=== PATIENT | female | born 1930 | race Caucasian/White ===

== ENCOUNTER 2016-05-11 03:40 | Inpatient (IN) | payer MEDICARE, MEDICAID ==
[~2016-05-11] VITALS: Ht 160 cm; Wt 60.9 kg
[~2016-05-11 03:40] MED LIST: /RISE35TA OR; /WARF2TA OR; ACET50TA PO; ACET65TA OR; AMBI5TAB OR; ASPI81TA4 PO; AUGM875T27 PO; CILOSTAZOL PO; COLA50CA3 PO; DUONSOL INH; FLAG500T PO; HYDR100T13 PO; INDA1.252 PO; LIDODERM PATCH; LIPI10TA OR; LISI20TA5 OR; LISI40TA OR; LOPR50TA OR; MICR10CA PO; NEUROTIN PO; NITROFURANTOIN PO; PLAV75TA2 OR; SENN8.6T5 OR; SENO8.6T5 OR; SLOMAG PO; TOPR50TA OR; TRAM100T OR
[2016-05-11 04:25] LABS: BASO # 0.1 K/mm3 (0.0-0.2); BASO % 1.2 % (0.0-1.0); EOS # 0.2 K/mm3 (0.0-0.50); EOS % 3.5 % (0.0-3.0); LARGE UNSTAINED CELL # 0.2 K/mm3 (0.0-0.4); LARGE UNSTAINED CELL % 3.8 % (0.0-4.0); LYMPH # 1.4 K/mm3 (1.5-4.5); LYMPH % 17.9 % (24.0-44.0); MEAN CORPUSCULAR HEMOGLOBIN 33.3 pg (27.0-33.0); MEAN CORPUSCULAR HGB CONC 31.8 g/dl (32.0-36.5); MEAN CORPUSCULAR VOLUME 104.8 fl (80.0-96.0); MONO # 0.7 K/mm3 (0.0-0.8); NEUTROPHILS % 62.7 % (36.0-66.0); PLATELET COUNT, AUTOMATED 174 k/mm3 (150-450); RED CELL DISTRIBUTION WIDTH 12.8 % (11.5-14.5); WHITE BLOOD COUNT 6.3 K/mm3 (4.0-10.0)
[2016-05-11] MEDS ORDERED: methylPREDNISolone INJ 125 MG/2 ML VIAL (J2930) As Ordered ONE (04:29)
[2016-05-11 04:45] LABS: ANION GAP 6 MEQ/L (8-16); BLOOD UREA NITROGEN 23 MG/DL (7-18); CALCIUM LEVEL 9.2 MG/DL (8.8-10.2); CARBON DIOXIDE LEVEL 29 MEQ/L (21-32); CHLORIDE LEVEL 104 MEQ/L (98-107); CREATININE FOR GFR 0.89 MG/DL (0.55-1.02); GLOMERULAR FILTRATION RATE > 60.0 (>32); GLUCOSE, FASTING 94 MG/DL (83-110); POTASSIUM SERUM 4.1 MEQ/L (3.5-5.1); SODIUM LEVEL 139 MEQ/L (136-145)
[2016-05-11 04:46] LABS: INR 2.95
[2016-05-11] MEDS ORDERED: IPRATROPIUM 0.5MG/ALBUTEROL 2.5MG INH SOL UD 3ML (DUONEB)(J7620) As Ordered ONE ×2 (05:17→06:54)
[2016-05-11] MEDS ORDERED: ISOVUE-370 76% 100ML VIAL (Q9967) As Ordered ONE (05:23)
[2016-05-11] MEDS ORDERED: HEPARIN SOD (PORCINE) 5000 UNITS/ML VIAL SC SCH (06:00)
--- NOTE | 2016-05-11 06:40 | REPUSA ---
CLINICAL HISTORY: Dyspnea, exclude PE. TECHNIQUE: Multiple incremental axial, coronal and oblique images are obtained from the thoracic inle t to the upper abdomen. Intravenous contrast material was administered as per pulmonary embolism prot ocol. COMMENTS: Moderate cardiomegaly. Absent contrast opacification of the aorta. Enlargement pulmonary arteries sug gestive of pulmonary hypertension. Contrast refluxed into the suprahepatic IVC suggestive of dysfunct ion of the right cardiac cavities. There is excellent opacification of pulmonary arterial system without evidence for pulmonary embolism . 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 Subsegmental atelectasis of the lingula. Basilar atelectatic pulmonary changes of the lower lobes. There is no evidence of pleural or parenchymal mass. There are no pleural effusions. There is no evid ence of hilar or mediastinal lymphadenopathy. Images of the upper abdomen demonstrate no evidence of adrenal mass. The bony structures are free of lytic or blastic lesions. Multilevel degenerative changes are seen in volving the visualized thoracolumbar spine. Scattered calcifications are seen involving the aorta and major branches compatible with atherosclero sis. IMPRESSION: No evidence for pulmonary embolism. 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 Cardiomegaly. Pulmonary hypertension. Basilar atelectatic pulmonary changes. Subsegmental atelectasis in the lingula. Please evaluate to exclude a superimposed infection. Thank you for your kind referral of this patient.
[2016-05-11] MEDS ORDERED: cefTRIAXone SOD 1 GM VIAL (J0696) As Ordered ONE (06:44)
[2016-05-11 07:08] LABS: ABG BASE EXCESS -1.3 (-2.0-2.0); ABG DEVICE NASAL CANN; ABG HCO3 23.6 MEQ/L (22.0-26.0); ABG PARTIAL PRESSURE CO2 40.6 mmHg (35.0-45.0); ABG STANDARD HCO3 23.4 MEQ/L (22.0-26.0); ABG TOTAL CO2 24.9 MEQ/L (23.0-31.0); ABG pH (ARTERIAL) 7.383 UNITS (7.350-7.450)
[2016-05-11] MEDS ORDERED: cefTRIAXone SOD 1 GM in D5W MINI-BAG PLUS 50 ML IV SCH (07:15)
[2016-05-11] MEDS: BUDESONIDE 0.25 MG/2 ML INHALATION SUSPENSION INH SCH ×2 (08:00→19:45)
[2016-05-11] MEDS: IPRATROPIUM 0.5MG/ALBUTEROL 2.5MG INH SOL UD 3ML (DUONEB)(J7620) NEB SCH ×4 (08:00→23:16)
--- NOTE | 2016-05-11 08:39 | EDDOCDS ---
Physician Documentation [facility] Name: Kelsey Sosa Age: 85 yrs Sex: Female : 1930 Arrival Date: 05/11/2016 Time: 03:40 Bed 18 Private MD: Zara Franks Disposition: 05/11/16 07:29 Hospitalization ordered by Kamilla Brooks for Inpatient Admission. Preliminary diagnosis are Chronic obstructive pulmonary disease with (acute) exacerbation, Hypoxemia. - Bed requested for 5 Rivera. - Status is Inpatient Admission. hs1 - Condition is Stable. - Problem is an acute exacerbation. - Symptoms have improved. Historical: - Allergies: SULFA (SULFONAMIDES) (Vomit); - Home Meds: 1. Duo Neb every 4 hours 2. budesonide inhalation inhalation 2 times per day 3. Lipitor 10 mg Oral tab 1 tab once daily (Last dose: 05/10/2016) 4. sennacot 1 tab daily 5. lisinopril 40 mg Oral tab 1 tab once daily (Last dose: 05/10/2016) 6. metoprolol succinate 50 mg Tb24 1 tab once daily (Last dose: 05/10/2016) 7. Neurontin 100 mg Oral cap twice a day (Last dose: 05/10/2016) 8. slomag 128 mg daily (Last dose: 05/10/2016) 9. warfarin 2 mg Oral tab 1 tab daily except Mondays and Fridays 10. potassium chloride 10 mEq Oral cpER 1 cap once daily 11. indapamide 1.25 mg Oral tab 1 tab once daily (Last dose: 05/10/2016) 12. fluoxetine 10 mg Oral cap 1 caps once daily - PMHx: COPD; Emphysema; CAD; Hypertension; Atrial Fib; CVA; Hypercholesterolemia; - PSHx: CATARACT SURGERY; Stents, Coronary; hysterectomy, Partial; blethroplasty; - Social history: Smoking status: Patient states former smoker of tobacco. No barriers to communication noted, The patient speaks fluent Romansh. - Family history: Not pertinent. - : The pt / caregiver states he / she is on anticoagulants: coumadin. Home medication list is obtained from family members. - Exposure Risk Screening:: None identified. Vital Signs: 05/11 03:57 BP 133 / 79; Pulse 78; Resp 20; Temp 97.5(T); Pulse Ox 90% on R/A; Weight 68.95 kg / kmg1 152.01 lbs (R); Height 5 ft. 3 in. (160.02 cm) (R); Pain 0/10; 04:06 BP 163 / 86 (auto/); kas2 04:07 Pulse 78 MON; Pulse Ox 91% ; kas2 04:21 BP 152 / 92 (auto/); kas2 04:21 Pulse 70 MON; Pulse Ox 97% ; kas2 04:36 BP 176 / 96 (auto/); kas2 04:36 Pulse 72 MON; Pulse Ox 97% ; kas2 04:51 BP 181 / 91 (auto/); kas2 04:51 Pulse 74 MON; Pulse Ox 97% ; kas2 05:06 BP 173 / 92 (auto/); kas2 05:06 Pulse 72 MON; Pulse Ox 98% ; kas2 05:21 Pulse 72 MON; Pulse Ox 99% ; kas2 05:21 BP 179 / 98 (auto/); kas2 05:27 BP 163 / 92 (auto/); kas2 05:27 Pulse 72 MON; Pulse Ox 100% ; kas2 05:36 BP 178 / 95 (auto/); kas2 05:36 Pulse 76 MON; Pulse Ox 99% ; kas2 05:50 BP 167 / 84 (auto/); kas2 05:50 Pulse 84 MON; Pulse Ox 93% ; kas2 05:51 BP 168 / 83 (auto/); kas2 05:51 Pulse 86 MON; Pulse Ox 93% ; kas2 06:06 BP 156 / 80 (auto/); kas2 06:06 Pulse 86 MON; Pulse Ox 96% ; kas2 06:16 Pulse 92 MON; Pulse Ox 96% ; kas2 06:23 BP 171 / 94 (auto/); kas2 06:26 Resp 24; Temp 97.5(O); Pain 0/10; kas2 06:36 BP 186 / 89 (auto/); kas2 06:36 Pulse 88 MON; Pulse Ox 98% ; kas2 06:52 Resp 20; Temp 97.6(O); Pain 0/10; kas2 07:36 BP 160 / 76 (auto/); hs1 07:37 Pulse 100 MON; Resp 20; Pulse Ox 98% on 2 lpm NC; hs1 03:57 Body Mass Index 26.93 (68.95 kg, 160.02 cm) [facility] [place]: 04:20 Solu-MEDROL 125 mg IVP once ordered. mm11 04:20 -Blood Culture (Adults Only), peripheral from different site, or from device/port/PICC mm11 etc. if present ordered. 04:20 Call Respiratory ordered. mm11 04:20 Cover Creaser/Pulse Ox/q 15 min VS ordered. mm11 04:20 IV Saline Lock ordered. mm11 04:20 Oxygen at 4L/Min NC or Home dosage ordered. mm11 04:20 Rhythm Strip to chart ordered. mm11 04:20 Albuterol-Ipratropium 1 neb Nebulizer every 20 minutes x3 ordered. mm11 04:21 -Blood Culture Ordered. EDMS 04:21 B-Type Natiuretic Peptide Ordered. EDMS 04:21 Basic Metabolic Profile Ordered. EDMS 04:21 CBC with Diff Ordered. EDMS 04:21 Troponin Ordered. EDMS 04:21 Cardiac Injury Profile Ordered. EDMS 04:21 Chest, 1 View Ordered. EDMS 04:22 ECG WITH READING ER PHYS+CARDIAG ordered. EDMS 04:25 Call Respiratory complete. tmm1 04:28 -Blood Culture (Adults Only), peripheral from different site, or from device/port/PICC tmm1 etc. if present complete. 04:28 BLOOD CULTURES Ordered. EDMS 04:38 CBC with Diff Reviewed. mm11 04:39 PT/INR Ordered. EDMS 05:05 B-Type Natiuretic Peptide Reviewed. mm11 05:05 Basic Metabolic Profile Reviewed. mm11 05:05 PT/INR Reviewed. mm11 05:05 Troponin Reviewed. mm11 05:05 Cardiac Injury Profile Reviewed. mm11 05:19 CT Chest Angio R/O PE Ordered. EDMS 06:02 Financial registration complete. hs2 06:02 [facility] Payment Agreement was scanned into [employer] and attached to record. hs2 06:38 Call Respiratory ordered. mm11 06:38 Albuterol-Ipratropium 1 neb Nebulizer every 20 minutes x3 ordered. mm11 06:39 cefTRIAXone 1 grams IVPB once over 30 mins; dilute in 50mL of NS or D5W ordered. mm11 06:39 -Arterial Blood Gas Ordered. EDMS 06:40 BED REQUEST+ADM ordered. EDMS 06:40 Call Respiratory complete. deg 07:09 URINALYSIS Ordered. EDMS 07:09 LACTIC ACID LEVEL, LACTATE Ordered. EDMS 07:09 CARDIAC MARKER PANEL Ordered. EDMS 07:09 CARDIAC MARKER PANEL Ordered. EDMS 07:09 SPUTUM CULTURE AND GRAM STAIN Ordered. EDMS 07:09 BLOOD CULTURES Ordered. EDMS 07:11 PHYSICAL THERAPY EVAL & TREAT ordered. EDMS 07:11 Admission / Observation Status ordered. EDMS 07:12 OTHER CUSTOM DIETS ordered. EDMS 07:36 ECHOCARD,DOPPLER/COLOR FLOW ordered. EDMS Administered Medications: 04:52 Drug: Solu-MEDROL 125 mg [Solu-Medrol 500 mg intravenous solution (125 mg)] Route: IVP; kas2 Site: left antecubital; 05:15 Drug: Albuterol-Ipratropium 1 neb [ipratropium-albuterol 0.5 mg-3 mg(2.5 mg base)/3 mL jc3 nebulization soln (1 neb)] Route: Nebulizer; 05:27 Drug: Albuterol-Ipratropium 1 neb [ipratropium-albuterol 0.5 mg-3 mg(2.5 mg base)/3 mL jc3 nebulization soln (1 neb)] Route: Nebulizer; 05:37 Drug: Albuterol-Ipratropium 1 neb [ipratropium-albuterol 0.5 mg-3 mg(2.5 mg base)/3 mL jc3 nebulization soln (1 neb)] Route: Nebulizer; 06:49 Drug: cefTRIAXone 1 grams [ceftriaxone 1 gram solution for injection] Route: IVPB; kas2 Infused Over: 30 mins; Site: left antecubital; 07:48 Follow up: IV Status: Completed infusion; IV Intake: 50ml hs1 07:02 Drug: Albuterol-Ipratropium 1 neb [ipratropium-albuterol 0.5 mg-3 mg(2.5 mg base)/3 mL jc3 nebulization soln (1 neb)] Route: Nebulizer; 07:09 Drug: Albuterol-Ipratropium 1 neb [ipratropium-albuterol 0.5 mg-3 mg(2.5 mg base)/3 mL jc3 nebulization soln (1 neb)] Route: Nebulizer; 07:19 Drug: Albuterol-Ipratropium 1 neb [ipratropium-albuterol 0.5 mg-3 mg(2.5 mg base)/3 mL jc3 nebulization soln (1 neb)] Route: Nebulizer; Signatures: Dispatcher [employer] EDMS Renate Holly, Window Glass Cutter Off Unit deg Zulma Dominguez RN RN kmg1 Jaiden Castellano, DO mm11 Alexadnra Cook RN RN hs1 Adelaida Olivier, STATE MANAGER STATE MANAGER tmm1 Heriberto Kitchen RN RN [facility] Clayton Choiary, Reg Reg hs2 Lena Mcrae RN RN [facility]2 John Fagan jc3 The chart was reviewed and I authenticate all verbal orders and agree with the evaluation and treatment provided.Attachments: 06:02 [facility] Payment Agreement hs2 MTDD
--- NOTE | 2016-05-11 08:39 | EDDOCDS ---
Nurse's Notes [facility] Name: Kelsey Sosa Age: 85 yrs Sex: Female : 1930 Arrival Date: 05/11/2016 Time: 03:40 Bed 18 Private MD: Zara Franks Diagnosis: Chronic obstructive pulmonary disease with (acute) exacerbation;Hypoxemia Presentation: 05/11 03:45 Presenting complaint: Was seen by PCP for difficulty breathing on Friday. Tonight is kmg1 worse. Edema in both legs. Status: Patient is not a community service organization director or dependent. Suicide/Homicide risk assessment- the patient denies having any suicidal and/or homicidal ideations. Transition of care: patient was not received from another setting of care. 03:45 Acuity: BETSEY Level 3 kmg1 03:45 Method Of Arrival: Walkin/Carried/Asstd km 04:00 Adult Sepsis Screening: The patient does not have new or worsening altered mentation. kmg1 Patient's respiratory rate is less than 22. Systolic blood pressure is greater than 100. Patient has a qSOFA score of 0- Negative Sepsis Screen. Triage Assessment: 03:57 General: Appears in no apparent distress, comfortable, Behavior is appropriate for age. kmg1 Pain: Denies pain. Respiratory: Onset: The symptoms/episode began/occurred gradually, Airway is patent Respiratory effort is even, unlabored, Respiratory pattern is regular, symmetrical, Reports shortness of breath cough that is. Historical: - Allergies: SULFA (SULFONAMIDES) (Vomit); - Home Meds: 1. Duo Neb every 4 hours 2. budesonide inhalation inhalation 2 times per day 3. Lipitor 10 mg Oral tab 1 tab once daily (Last dose: 05/10/2016) 4. sennacot 1 tab daily 5. lisinopril 40 mg Oral tab 1 tab once daily (Last dose: 05/10/2016) 6. metoprolol succinate 50 mg Tb24 1 tab once daily (Last dose: 05/10/2016) 7. Neurontin 100 mg Oral cap twice a day (Last dose: 05/10/2016) 8. slomag 128 mg daily (Last dose: 05/10/2016) 9. warfarin 2 mg Oral tab 1 tab daily except Mondays and Fridays 10. potassium chloride 10 mEq Oral cpER 1 cap once daily 11. indapamide 1.25 mg Oral tab 1 tab once daily (Last dose: 05/10/2016) 12. fluoxetine 10 mg Oral cap 1 caps once daily - PMHx: COPD; Emphysema; CAD; Hypertension; Atrial Fib; CVA; Hypercholesterolemia; - PSHx: CATARACT SURGERY; Stents, Coronary; hysterectomy, Partial; blethroplasty; - Social history: Smoking status: Patient states former smoker of tobacco. No barriers to communication noted, The patient speaks fluent Swedish. - Family history: Not pertinent. - : The pt / caregiver states he / she is on anticoagulants: coumadin. Home medication list is obtained from family members. - Exposure Risk Screening:: None identified. Screenin:17 Screening information is obtained from the patient. Fall risk: At risk due to age. kas2 Assistance ADL's: requires no assistance with activities of daily living. Abuse/DV Screen: The patient / caregiver reports he/she is: not in a situation that causes fear, pain or injury. Nutritional screening: No deficits noted. Advance Directives: Currently, there is no health care proxy. There is no active DNR order. There is a living will, but a copy is not available at this time. There is no Power of Lodge Sales Associate. home support is adequate. Assessment: 04:16 General: Appears in no apparent distress, comfortable, well nourished, well groomed, kas2 Behavior is appropriate for age, cooperative. Pain: Denies pain. Neurological: Level of Consciousness is awake, alert, Oriented to person, place, time. Cardiovascular: Capillary refill < 3 seconds Heart tones S1 S2 present Rhythm is sinus rhythm No ectopy. Cardiovascular: Edema is 2+ to left midcalf, left ankle, left foot, left toes, right midcalf, right ankle, right foot and right toes. Respiratory: Airway is patent Respiratory effort is even, unlabored, Respiratory pattern is regular, symmetrical, Breath sounds are diminished bilaterally. Breath sounds with wheezes inspiratory expiratory bilaterally. GI: Abdomen is obese, Bowel sounds present X 4 quads. Abd is soft and non tender X 4 quads. Derm: Skin is intact, Skin is dry, Skin is pink, warm & dry. normal, Skin temperature is warm. 05:15 General: Patient sitting up in bed with family at bedside. Denies pain or discomfort at kas2 this time. Appears comfortable. Call borges within reach. Will continue to monitor.. 05:30 General: Patient gone to CT scan via stretcher with tech.. kas2 05:45 General: Patient back from CT scan via stretcher with RN. Resettle in bed. Appears kas2 comfortable. Denies pain or discomfort at this time. No apparent distress. Call borges within reach. Will continue to monitor.. 06:50 General: Appears in no apparent distress, comfortable, well nourished, well groomed, kas2 Behavior is appropriate for age, cooperative. Pain: Denies pain. Neurological: Level of Consciousness is awake, alert, Oriented to person, place, time. Cardiovascular: Rhythm is sinus rhythm No ectopy. Respiratory: Airway is patent Respiratory effort is even, unlabored, Respiratory pattern is regular, symmetrical, Breath sounds are diminished bilaterally. Breath sounds with wheezes inspiratory expiratory bilaterally. Derm: Skin is intact, Skin is dry, Skin is pink, warm & dry. normal, Skin temperature is warm. 07:44 General: Appears in no apparent distress, Behavior is appropriate for age, cooperative. hs1 Neurological: Level of Consciousness is awake, alert, obeys commands, Oriented to person, place, time. Cardiovascular: Edema is 2+ to left ankle, left foot, left toes, right ankle, right foot and right toes. Respiratory: Airway is patent Respiratory effort is unlabored, Respiratory pattern is regular, symmetrical, Breath sounds are diminished bilaterally. Breath sounds with wheezes bilaterally. Derm: Skin is normal. 08:14 Reassessment: Patient appears in no apparent distress at this time. Patient states hs1 symptoms have improved. after last breathing treatment feeling better. Pt tolerated breakfast well. Family continues at bedside. No other needs made known at this time. . Vital Signs: 03:57 BP 133 / 79; Pulse 78; Resp 20; Temp 97.5(T); Pulse Ox 90% on R/A; Weight 68.95 kg (R); kmg1 Height 5 ft. 3 in. (160.02 cm) (R); Pain 0/10; 04:06 BP 163 / 86 (auto/); kas2 04:07 Pulse 78 MON; Pulse Ox 91% ; kas2 04:21 BP 152 / 92 (auto/); kas2 04:21 Pulse 70 MON; Pulse Ox 97% ; kas2 04:36 BP 176 / 96 (auto/); kas2 04:36 Pulse 72 MON; Pulse Ox 97% ; kas2 04:51 BP 181 / 91 (auto/); kas2 04:51 Pulse 74 MON; Pulse Ox 97% ; kas2 05:06 BP 173 / 92 (auto/); kas2 05:06 Pulse 72 MON; Pulse Ox 98% ; kas2 05:21 Pulse 72 MON; Pulse Ox 99% ; kas2 05:21 BP 179 / 98 (auto/); kas2 05:27 BP 163 / 92 (auto/); kas2 05:27 Pulse 72 MON; Pulse Ox 100% ; kas2 05:36 BP 178 / 95 (auto/); kas2 05:36 Pulse 76 MON; Pulse Ox 99% ; kas2 05:50 BP 167 / 84 (auto/); kas2 05:50 Pulse 84 MON; Pulse Ox 93% ; kas2 05:51 BP 168 / 83 (auto/); kas2 05:51 Pulse 86 MON; Pulse Ox 93% ; kas2 06:06 BP 156 / 80 (auto/); kas2 06:06 Pulse 86 MON; Pulse Ox 96% ; kas2 06:16 Pulse 92 MON; Pulse Ox 96% ; kas2 06:23 BP 171 / 94 (auto/); kas2 06:26 Resp 24; Temp 97.5(O); Pain 0/10; kas2 06:36 BP 186 / 89 (auto/); kas2 06:36 Pulse 88 MON; Pulse Ox 98% ; kas2 06:52 Resp 20; Temp 97.6(O); Pain 0/10; kas2 07:36 BP 160 / 76 (auto/); hs1 07:37 Pulse 100 MON; Resp 20; Pulse Ox 98% on 2 lpm NC; hs1 03:57 Body Mass Index 26.93 (68.95 kg, 160.02 cm) [facility] Vitals: 03:57 Log In Time: May 11, 2016 at 03:43. [facility] ED Course: 03:42 Patient visited by Shaan Davison. lja 03:42 Zara Franks is Private Physician. lja 03:42 Patient moved to Waiting [facility] 03:47 Triage Initiated km 04:00 Lena Mcrae,RN is Primary Nurse. [facility] 04:00 Patient moved to 18 [facility] 04:10 Jaiden Castellano DO is Attending Physician. mm11 04:10 Patient visited by Jaiden Castellano DO. mm11 04:18 Patient visited by Lena Mcrae RN. kas2 04:18 Inserted saline lock: 20 gauge in left antecubital area and blood collected. The kas2 patient tolerated the procedure well. 04:18 No procedures done that require assistance. kas2 04:19 Patient visited by Jaiden Castellano DO. mm11 04:25 Patient visited by Lena Mcrae RN. kas2 04:25 The patient / caregiver is instructed regarding the plan of care and ED course. Cardiac kas2 monitor on. Pulse ox on. NIBP on. 04:25 O2 via nasal cannula \T\ 4L/min. kas2 04:59 BLOOD CULTURES Sent. jlm 05:04 Patient visited by Jaiden Castellano DO. mm11 05:07 Patient visited by Lena Mcrae RN. kas2 05:16 Patient visited by Lena Mcrae RN. kas2 05:51 Patient visited by Lena Mcrae RN. kas2 06:02 [facility] Payment Agreement was scanned into [employer] and attached to record. hs2 06:05 Patient visited by Lena Mcrae RN. kas2 06:06 Patient name changed from Kelsey\S\A\S\Sosa\S\ to Kelsey\S\Martha\S\Sosa. EDMS 06:26 Patient visited by Lena Mcrae RN. kas2 06:44 CT Chest Angio R/O PE Returned. EDMS 06:52 Patient visited by Lnea Mcrae RN. kas2 07:02 Primary Nurse role handed off by Lena Mcrae RN kas2 07:02 -Arterial Blood Gas Sent. jc3 07:29 Patient visited by Jaiden Castellano DO. mm11 07:29 Kamilla Brooks is Hospitalizing Provider. mm11 Administered Medications: 04:52 Drug: Solu-MEDROL 125 mg [Solu-Medrol 500 mg intravenous solution (125 mg)] Route: IVP; kas2 Site: left antecubital; 05:15 Drug: Albuterol-Ipratropium 1 neb [ipratropium-albuterol 0.5 mg-3 mg(2.5 mg base)/3 mL 3 nebulization soln (1 neb)] Route: Nebulizer; 05:27 Drug: Albuterol-Ipratropium 1 neb [ipratropium-albuterol 0.5 mg-3 mg(2.5 mg base)/3 mL jc3 nebulization soln (1 neb)] Route: Nebulizer; 05:37 Drug: Albuterol-Ipratropium 1 neb [ipratropium-albuterol 0.5 mg-3 mg(2.5 mg base)/3 mL jc3 nebulization soln (1 neb)] Route: Nebulizer; 06:49 Drug: cefTRIAXone 1 grams [ceftriaxone 1 gram solution for injection] Route: IVPB; kas2 Infused Over: 30 mins; Site: left antecubital; 07:48 Follow up: IV Status: Completed infusion; IV Intake: 50ml hs1 07:02 Drug: Albuterol-Ipratropium 1 neb [ipratropium-albuterol 0.5 mg-3 mg(2.5 mg base)/3 mL jc3 nebulization soln (1 neb)] Route: Nebulizer; 07:09 Drug: Albuterol-Ipratropium 1 neb [ipratropium-albuterol 0.5 mg-3 mg(2.5 mg base)/3 mL jc3 nebulization soln (1 neb)] Route: Nebulizer; 07:19 Drug: Albuterol-Ipratropium 1 neb [ipratropium-albuterol 0.5 mg-3 mg(2.5 mg base)/3 mL jc3 nebulization soln (1 neb)] Route: Nebulizer; Intake: 07:48 IV: 50.00ml; Total: 50.00ml. hs1 RT: 05:20 Initial Med Neb Given as ordered. O2 via nasal cannula \T\ 2L/min. Respiratory: Breath jc3 sounds are diminished bilaterally. Breath sounds with wheezes bilaterally. at expiration. 05:27 Subsequent Med Neb Given as ordered. Respiratory: Breath sounds are diminished jc3 bilaterally. Breath sounds with wheezes bilaterally. at expiration. 05:37 Subsequent Med Neb Given as ordered. Respiratory: Breath sounds are coarse Breath jc3 sounds are diminished bilaterally. Breath sounds with wheezes bilaterally. at expiration. 07:04 ABG's drawn from right radial artery pressure held for 5 minutes no bleeding noted jc3 pressure bandage applied specimen sent pt. tolerated well. Subsequent Med Neb Given as ordered. Respiratory: Breath sounds are coarse Breath sounds with crackles in left upper lobe and left lower lobe Breath sounds are diminished bilaterally. Breath sounds with wheezes. 07:19 Subsequent Med Neb Given as ordered. Respiratory: Breath sounds are coarse Breath jc3 sounds with crackles Breath sounds are diminished bilaterally. Breath sounds with wheezes. Order Results: Lab Order: B-Type Natiuretic Peptide; SPEC'M 05/11/16 04:14 Test: BRAIN NATRIURETIC PEPTIDE; Value: 319; Range: <100; Abnormal: Above high normal; Units: PG/ML; Status: F Lab Order: Basic Metabolic Profile; SPEC'M 05/11/16 04:14 Test: GLUCOSE, FASTING; Value: 94; Range: 83-110; Units: MG/DL; Status: F Test: BLOOD UREA NITROGEN; Value: 23; Range: 7-18; Abnormal: Above high normal; Units: MG/DL; Status: F Test: CREATININE FOR GFR; Value: 0.89; Range: 0.55-1.02; Units: MG/DL; Status: F Test: GLOMERULAR FILTRATION RATE; Value: > 60.0; Range: >32; Status: F Test: SODIUM LEVEL; Value: 139; Range: 136-145; Units: MEQ/L; Status: F Test: POTASSIUM SERUM; Value: 4.1; Range: 3.5-5.1; Units: MEQ/L; Status: F Test: CHLORIDE LEVEL; Value: 104; Range: 98-107; Units: MEQ/L; Status: F Test: CARBON DIOXIDE LEVEL; Value: 29; Range: 21-32; Units: MEQ/L; Status: F Test: ANION GAP; Value: 6; Range: 8-16; Abnormal: Below low normal; Units: MEQ/L; Status: F Test: CALCIUM LEVEL; Value: 9.2; Range: 8.8-10.2; Units: MG/DL; Status: F Test Note: ; Units are mL/min/1.73 m2 Chronic Kidney Disease Staging per NKF: Stage I & II GFR >=60 Normal to Mildly Decreased Stage III GFR 30-59 Moderately Decreased Stage IV GFR 15-29 Severely Decreased Stage V GFR <15 Very Little GFR Left ESRD GFR <15 on SALES [employer]PRESENTATIVE [employer] Lab Order: CBC with Diff; SPEC'M 05/11/16 04:14 Test: WHITE BLOOD COUNT; Value: 6.3; Range: 4.0-10.0; Units: K/mm3; Status: F Test: RED BLOOD COUNT; Value: 4.02; Range: 4.00-5.40; Units: M/mm3; Status: F Test: HEMOGLOBIN; Value: 13.4; Range: 12.0-16.0; Units: g/dl; Status: F Test: HEMATOCRIT; Value: 42.2; Range: 36.0-47.0; Units: %; Status: F Test: MEAN CORPUSCULAR VOLUME; Value: 104.8; Range: 80.0-96.0; Abnormal: Above high normal; Units: fl; Status: F Test: MEAN CORPUSCULAR HEMOGLOBIN; Value: 33.3; Range: 27.0-33.0; Abnormal: Above high normal; Units: pg; Status: F Test: MEAN CORPUSCULAR HGB CONC; Value: 31.8; Range: 32.0-36.5; Abnormal: Below low normal; Units: g/dl; Status: F Test: RED CELL DISTRIBUTION WIDTH; Value: 12.8; Range: 11.5-14.5; Units: %; Status: F Test: PLATELET COUNT, AUTOMATED; Value: 174; Range: 150-450; Units: k/mm3; Status: F Test: NEUTROPHILS %; Value: 62.7; Range: 36.0-66.0; Units: %; Status: F Test: LYMPH %; Value: 17.9; Range: 24.0-44.0; Abnormal: Below low normal; Units: %; Status: F Test: MONO %; Value: 11.0; Range: 0.0-5.0; Abnormal: Above high normal; Units: %; Status: F Test: EOS %; Value: 3.5; Range: 0.0-3.0; Abnormal: Above high normal; Units: %; Status: F Test: BASO %; Value: 1.2; Range: 0.0-1.0; Abnormal: Above high normal; Units: %; Status: F Test: LARGE UNSTAINED CELL %; Value: 3.8; Range: 0.0-4.0; Units: %; Status: F Test: NEUTROPHILS #; Value: 4.0; Range: 1.8-7.7; Units: K/mm3; Status: F Test: LYMPH #; Value: 1.4; Range: 1.5-4.5; Abnormal: Below low normal; Units: K/mm3; Status: F Test: MONO #; Value: 0.7; Range: 0.0-0.8; Units: K/mm3; Status: F Test: EOS #; Value: 0.2; Range: 0.0-0.50; Units: K/mm3; Status: F Test: BASO #; Value: 0.1; Range: 0.0-0.2; Units: K/mm3; Status: F Test: LARGE UNSTAINED CELL #; Value: 0.2; Range: 0.0-0.4; Units: K/mm3; Status: F Lab Order: Troponin; [facility] 05/11/16 04:14 Test: TROPONIN I; Value: < 0.02; Range: < 0.10; Units: NG/ML; Status: F Test Note: ; Troponin I Reference Interval for Penxy LOCI: 99th Percentile= 0.00-0.045 ng/ml Risk Stratification: <= 0.10 ng/ml Decreased Risk for Adverse Clinical Events. 0.10-1.50 ng/ml Increased Risk for Adverse Clinical Events. Evaluation of additional criterion and/or repeat testing in 2-6 hours is suggested to rule out myocardial damage. >= 1.50 ng/ml Indicative of Myocardial Injury. Lab Order: Cardiac Injury Profile; [facility] 05/11/16 04:14 Test: CPK CREATINE PHOSPHOKINASE; Value: 74; Range: 26-192; Units: U/L; Status: F Test: CK-MB VALUE MASS; Value: 2.9; Range: 0.0-3.6; Units: NG/ML; Status: F Test: MB/CK RELATIVE INDEX; Value: 3.91; Range: < OR =4; Status: F Test Note: ; DIAGNOSIS CRITERIA MMB ng/ml Relative Index (RI) NON-AMI < or = 5 N/A BHATT ZONE > 5 < or = 4 AMI > 5 > 4 Lab Order: PT/INR; [facility] 05/11/16 04:14 Test: PROTHROMBIN TIME; Value: 30.8; Range: 12.3-14.5; Abnormal: Above high normal; Units: SECONDS; Status: F Test: INR; Value: 2.95; Status: F Test Note: ; THERAPUTIC HUMAN INR VALUES INDICATIONS NORMAL RANGES PROPHYLAXIS/TREATMENT OF: VENOUS THROMBOSIS 2.0-3.0 PULMONARY EMBOLISM 2.0-3.0 PREVENTION OF SYSTEMIC EMBOLISM FROM: TISSUE HEART VALVES 2.0-3.0 ACUTE MYOCARDIAL INFARCTION 2.0-3.0 VALVULAR HEART DISEASE 2.0-3.0 ATRIAL FIBRILLATION 2.0-3.0 MECHANICAL VALVES(HIGH RISK) 2.5-3.5 RECURRENT MYOCARDIAL INFARCTION 2.5-3.5 Lab Order: -Arterial Blood Gas; [facility] 05/11/16 06:56 Test: ABG pH (ARTERIAL); Value: 7.383; Range: 7.350-7.450; Units: UNITS; Status: F Test: ABG PARTIAL PRESSURE CO2; Value: 40.6; Range: 35.0-45.0; Units: mmHg; Status: F Test: ABG PARTIAL PRESSURE O2; Value: 96.0; Range: 75.0-100.0; Units: mmHg; Status: F Test: ABG TOTAL CO2; Value: 24.9; Range: 23.0-31.0; Units: MEQ/L; Status: F Test: ABG HCO3; Value: 23.6; Range: 22.0-26.0; Units: MEQ/L; Status: F Test: ABG BASE EXCESS; Value: -1.3; Range: -2.0-2.0; Status: F Test: ABG STANDARD HCO3; Value: 23.4; Range: 22.0-26.0; Units: MEQ/L; Status: F Test: ABG O2 SATURATION; Value: 97.9; Range: 95.0-99.0; Units: %; Status: F Test: ABG DEVICE; Value: NASAL BENNY; Status: F Radiology Order: CT Chest Angio R/O PE Test: CT Chest Angio R/O PE REASON FOR EXAMINATION: Shortness of Breath; ; CLINICAL HISTORY: Dyspnea, exclude PE.; TECHNIQUE: Multiple incremental axial, coronal and oblique images are obtained from the thoracic inle; t to the upper abdomen. Intravenous contrast material was administered as per pulmonary embolism prot; ocol.; COMMENTS:; Moderate cardiomegaly. Absent contrast opacification of the aorta. Enlargement pulmonary arteries sug; gestive of pulmonary hypertension. Contrast refluxed into the suprahepatic IVC suggestive of dysfunct; ion of the right cardiac cavities.; There is excellent opacification of pulmonary arterial system without evidence for pulmonary embolism; . Aneurysmal ascending aorta measuring 4.6 cm.; Subsegmental atelectasis of the lingula.; Basilar atelectatic pulmonary changes of the lower lobes.; There is no evidence of pleural or parenchymal mass. There are no pleural effusions. There is no evid; ence of hilar or mediastinal lymphadenopathy.; Images of the upper abdomen demonstrate no evidence of adrenal mass.; The bony structures are free of lytic or blastic lesions. Multilevel degenerative changes are seen in; volving the visualized thoracolumbar spine.; Scattered calcifications are seen involving the aorta and major branches compatible with atherosclero; sis.; IMPRESSION:; No evidence for pulmonary embolism.; Aneurysmal ascending aorta measuring 4.6 cm.; Cardiomegaly.; Pulmonary hypertension.; Basilar atelectatic pulmonary changes.; Subsegmental atelectasis in the lingula. Please evaluate to exclude a superimposed infection.; Thank you for your kind referral of this patient.; ; Outcome: 07:29 Decision to Hospitalize by Provider. mm11 08:16 Discharge Assessment: Patient awake, alert and oriented x 3. No cognitive and/or hs1 functional deficits noted. Patient verbalized understanding of disposition instructions. patient administered narcotics - no. The following High Risk Discharge criteria are identified: None. Admitted to Med/Surg accompanied by tech, via stretcher, with oxygen, with chart. Condition: stable. CT Study completed. Admission hand-off: Report called to 5 ASHER SBAR recieved. Property :Personal belongings accompany Pt. 08:38 Patient left the ED. hs1 Signatures: Dispatcher [employer] EDMS Zulma Dominguez, RN RN kmg1 Jaiden Castellano, DO mm11 John Fagan jc3 Alexandra Cook RN RN hs1 Angela Landrum, Patient Account Representative Unit stefano Davison, Jody Gonzalez Reg Reg hs2 Lena McraeRN RN kas2 Corrections: (The following items were deleted from the chart) 05:28 05:27 Respiratory: Pleural rub noted Breath sounds are diminished bilaterally. Breath jc3 sounds with wheezes bilaterally. at expiration jc3 MTDD
[2016-05-11 09:00] VITALS: BP 126/50
[2016-05-11] MEDS: AZITHROMYCIN 250 MG TAB PO SCH (09:00)
[2016-05-11] MEDS ORDERED: amLODIPine 5 MG TAB PO SCH (09:00)
[2016-05-11] MEDS: INDAPAMIDE 1.25MG TABLET PO SCH (09:00)
[2016-05-11] MEDS: MAGNESIUM CHLORIDE 64 MG TABCR (SLO MAG) PO SCH (09:00)
[2016-05-11] MEDS: GABAPENTIN 100 MG CAP PO SCH ×2 (09:00→19:35)
[2016-05-11] MEDS ORDERED: METOPROLOL SUCC (TopROL XL) 50MG **XL** TAB PO SCH (09:00)
[2016-05-11] MEDS: FLUoxetine 10 MG CAP PO SCH (09:00)
[2016-05-11] MEDS ORDERED: ATOR1TAB19 PO (09:31)
[2016-05-11] MEDS ORDERED: LISI40TAB PO (09:31)
[2016-05-11] MEDS ORDERED: INDA125TA PO (09:31)
[2016-05-11] MEDS ORDERED: AMLO5TAB2 PO (09:31)
[2016-05-11] MEDS ORDERED: GABA-279 PO (09:31)
[2016-05-11] MEDS ORDERED: FLUO10CA8 PO (09:31)
[2016-05-11] MEDS ORDERED: SENN8.6T10 PO (09:31)
[2016-05-11] MEDS ORDERED: WARF4TAB51 PO (09:31)
[2016-05-11] MEDS ORDERED: POTA10CA PO (09:31)
[2016-05-11] MEDS ORDERED: BUDE0.254 INH (09:31)
[2016-05-11] MEDS ORDERED: METO-207 PO (09:31)
[2016-05-11] MEDS ORDERED: IPRASOL4 INH (09:33)
[2016-05-11] MEDS ORDERED: SLOWTAB2 PO (09:36)
[2016-05-11] MEDS: methylPREDNISolone INJ 125 MG/2 ML VIAL (J2930) IV SCH ×3 (10:00→22:26)
[2016-05-11] MEDS ORDERED: SENNA 8.6 MG TAB (SENOKOT) PO PRN (11:00)
[2016-05-11] MEDS: LACTOBACILLUS ACIDOPHILUS CAP (BACID) PO SCH ×2 (11:19→17:32)
[2016-05-11] MEDS: ONDANSETRON 4MG/2ML VIAL (J2405) IV PRN (11:37)
--- NOTE | 2016-05-11 12:05 | REP ---
AP PORTABLE CHEST: 05/11/2016 at 05:00 AM. Clinical history: Cough. Comparison: Chest x-ray 05/13/2014. Findings: Lungs are mildly hyperinflated. Calcifications anterior cartilage is noted on the right. The heart is enlarged with left atrial and ventricular enlargement. The right heart may also be slightly enlarged. Epicardial fat pad along the left lateral chest margin, as on the previous CT chest in 2012. It is not seen on the PA chest of 05/13/2014 because of projection. No gross effusion, dense consolidation or parenchymal mass. The aorta is calcified at the arch, tortuous and slightly deviates the trachea towards the right. There are degenerative changes of the shoulders and AC joints with some chronic rotator cuff insufficiency on the right. Impression: 1. Blunted left CP angle likely related to epicardial fat pad and not effusion. Cardiomegaly, left atrial and ventricular enlargement. Some right heart enlargement is noted with some underlying fibrosis, COPD and calcifications in anterior costal cartilages. Signed by Nitin Pastrana MD 05/11/2016 07:33 P
[2016-05-11] MEDS ORDERED: NS 1,000 ML IV SCH (13:15)
--- NOTE | 2016-05-11 13:19 | HPE ---
DATE OF ADMISSION: 05/11/2016 Time patient was seen was at 10:00 a.m. PRIMARY CARE PROVIDER: Dr. Sanchez from [place], [place] CHIEF COMPLAINT: Shortness of breath. HISTORY OF PRESENT ILLNESS: 85-year-old female with a past medical history of atrial fibrillation on warfarin, hypertension, coronary artery disease, status post stents, skin cancer, strokes, history of diverticulitis, chronic kidney disease stage 3, peripheral neuropathy, presented with shortness of breath that started last week after the patient choked on food. The patient also reports wheezing this morning. The patient denies any fever or chills. Denies any cough or sputum production. The patient admits to also swollen feet that started a few weeks ago as well. Otherwise, the patient denies any chest pain, abdominal pain , nausea, vomiting, diarrhea, constipation, blood in the urine or stool. ALLERGIES: The patient is allergic to SULFA, which makes her sick to her stomach. However, on her medical record, it is listed that she is also allergic to DIAZEPAM, which makes her angry and so do QUINOLONES and DIPHENHYDRAMINE. However, the patient herself did not mention this. HOME MEDICATIONS: - DuoNeb every 4 hours as needed - amlodipine 5 mg one tablet by mouth daily - atorvastatin 10 mg one tablet by mouth at night - budesonide 0.25 mg one inhalation twice a day - fluoxetine 10 mg one tablet by mouth daily - gabapentin 100 mg one tablet by mouth twice a day - indapamide 1.25 mg one tablet by mouth daily - lisinopril 40 mg one tablet by mouth at night - magnesium one tablet by mouth daily - metoprolol 50 mg one tablet by mouth daily - potassium chloride 10 mg one tablet by mouth daily - Senna one tablet by mouth daily as needed - warfarin 2 mg one tablet by mouth five times per week on Friday, Friday, Friday, Friday and PAST MEDICAL HISTORY: 1. Hypertension. 2. Atrial fibrillation on warfarin. 3. Coronary artery disease, status post stents. 4. Skin cancer, status post removal. 5. Recurrent strokes. 6. History of diverticulitis. 7. Chronic kidney disease stage III. 8. Peripheral neuropathy. PAST SURGICAL HISTORY: Includes: 1. Cardiac stent placement. 2. Cataracts. 3. Hysterectomy. 4. Blepharoplasty. SOCIAL HISTORY: The patient currently works around the house without any assistance. However, she does have a cane, walker and wheelchair at home, which the patient does not use most of the time. Denies any smoking, drinking or recreational drug use. FAMILY HISTORY: Noncontributory. REVIEW OF SYSTEMS: GENERAL: The patient weakness over the past few weeks. Denies any fever or chills. Admits to aspirating on some food about one week ago. HEENT: Denies any changes with vision, hearing or taste. Denies any sore throat, any cough, or any sputum production. RESPIRATORY: The patient admits to wheezing and shortness of breath. Admits to choking on some food one week ago. CARDIOVASCULAR: Denies any chest pain. Admits to trouble breathing. The patient sleeps on only one pillow lying flat at night; however, she does admit to increased swelling in the feet bilaterally a few weeks ago. GASTROINTESTINAL: Denies any abdominal pain, nausea, vomiting, diarrhea or constipation. Denies any blood in the stool. GENITOURINARY: Denies any problem with urination or any blood in the urine. SKIN: Denies any rash or ulcerations. She does have a history of skin cancer. MUSCULOSKELETAL: Denies any pain anywhere. PSYCHOLOGICAL: Denies any anxiety or depression. NEUROLOGIC: Admits to numbness of bilateral feet, chronically. Denies any focal weakness. PHYSICAL EXAMINATION: VITAL SIGNS: Temperature 97.1, pulse 107, respirations 20, blood pressure 126/50. The patient's saturation was 90% on room air initially, currently saturating at 96% on 1 liter nasal cannula. GENERAL: The patient is a thin-looking, elderly female who was alert, awake, oriented times three. Does not appear to be in distress. Sitting up comfortably in her chair with head elevated at 90 degrees. HEENT: Normocephalic, atraumatic. Extraocular motors intact. Mucosa moist. Neck is supple. No neck lymphadenopathy. CARDIOVASCULAR: Regular rate and rhythm. S1, S2. Difficult to auscultate due to increased AP diameter. LUNGS: Slight wheezing bilaterally. ABDOMEN: Positive bowel sounds. Soft, nontender, nondistended. No peritoneal signs. No ecchymoses. EXTREMITIES: 1+ pitting edema in bilateral lower extremities. SKIN: Warm and dry. NEUROLOGIC: Cranial nerves II through XII intact. No focal neurological deficits. LABORATORY DATA: WBC 6.3, hemoglobin 13.4, hematocrit 42.2, with a platelet count of 174, MCV 104.8. Sodium 139, potassium 4.1, chloride 104, bicarbonate 29, BUN 23, creatinine 0.89 , GFR greater than 60, fasting glucose 94, calcium 9.2, CK 74, CK-MB 2.9, troponin less than 0.02, BNP was elevated at 3.9. The patient had an ABG done in the emergency room and pH was 7.38, PCO2 was 40.6 , PO2 was 96, base excess was negative 1.3, oxygen was saturating at 97.9% on nasal cannula. The patient's coag shows a PT of 30.8, INR 2.95. The patient's blood culture times two is pending. The patient had a CT angio of the chest that shows no evidence of pulmonary embolism. The patient has ascending aortic aneurysm measuring 4.6 cm, cardiomegaly, pulmonary hypertension, bibasilar atelectasis with pulmonary changes, subsegmental atelectasis in the lingula and cannot exclude a superimposed infection. ASSESSMENT AND PLAN: 85-year-old female with past medical history of chronic obstructive pulmonary disease (COPD), atrial fibrillation on warfarin, hypertension, coronary artery disease status post stent, skin cancer, recurrent strokes, history of diverticulitis, chronic kidney disease stage III, peripheral neuropathy, who presented with: 1. Shortness of breath, likely secondary to COPD exacerbation. In addition, CT angio of the chest shows possible lingular infection and also atelectasis. At the same time, the patient's BNP is 319. In the past it was 158, which represents possible congestive heart failure (CHF) exacerbation as well. Therefore, we will start the patient on Solu-Medrol 80 mg intravenous every 6 hours, as well as Rocephin 2 grams IV every 24 hours and also azithromycin 250 mg by mouth daily and we will order echo to check the patient's cardiac function due to the patient does have an elevated BNP and increased lower extremity swelling and weight gain. In addition, we will continue to monitor the patient's condition. We will not change medication for antibiotic currently due to patient does not have an elevated white count or any fever. Currently, even though the patient aspirated, the pneumonia may not be aspiration pneumonia. We will continue to monitor, and we will change antibiotic if the patient's condition does not improve. 2. Hypertensive urgency. Initially was 181/91. Currently, blood pressure is 126/50 without intervention. We will continue to monitor. 3. Elevated BUN, etiology unclear. We will obtain fecal occult to rule out any gastrointestinal bleed. 4. Recently found aortic aneurysm, 4.[address] angio of the chest. The patient may need outpatient followup. 5. Atrial fibrillation, on warfarin. INR is currently 2.95 and currently therapeutic. We will continue to monitor INR while the patient is in the hospital. 6. Coronary artery disease, status post stent placement. We will continue home medications. 7. History of hypertension. We will continue the patient's blood pressure medication with hold parameters. Norvasc held if blood pressure is less than 150 mmHg and also metoprolol succinate 50 mg by mouth daily, hold if systolic blood pressure is less than 110 or if heart rate is less than 65. Also, Lisinopril 40 mg by mouth at night, holding if systolic blood pressure is less than 110. 8. History of skin cancer, continue to monitor. 9. History of recurrent strokes. Continue to monitor. We will place the patient on aspiration precautions. 10. Chronic kidney disease stage III. The patient's creatinine is 0.89 today and GFR is greater than 60. This is not consistent with the patient's history. 11. Peripheral neuropathy, stable. Continue to monitor. 12. History of lower extremity edema. Continue home medications. Continue to monitor the patient. The patient is on Lozol at home. 13. Deep vein thrombosis (DVT) prophylaxis with heparin 5000 units subcutaneously every 12 hours. DISPOSITION: The patient has shortness of breath, likely secondary to chronic obstructive pulmonary disease (COPD) exacerbation versus congestive heart failure (CHF) exacerbation versus pneumonia, possible aspiration type. We will continue antibiotic with Rocephin and azithromycin, as well as steroid and continue to monitor the patient. We will assess cardiac function with echocardiogram. We will continue to monitor the patient. Currently, pulmonary embolism has been ruled out with CTA of the chest. We will continue to trend the patient's cardiac markers times three, so far has been negative to rule out acute coronary syndrome. The patient has been discussed with attending doctor, Dr. Brooks. My preceptor for this patient encounter was Dr. Brooks. The preceptor was physically present in the building during the encounter and was fully available. As needed, all aspects of the patient interview, examination, medical decision making process, and medical care plan development were reviewed and approved by the preceptor. The preceptor is aware and concurs with the plan as stated in the body of this note and will attest to such by his/her cosignature. NOEMI
[2016-05-11 14:00] VITALS: BP 163/76
[2016-05-11] MEDS ORDERED: WARFARIN SOD 2 MG TAB PO SCH (17:00)
[2016-05-11] MEDS: ATORVASTATIN 10 MG TAB PO SCH (19:35)
[2016-05-11] MEDS: HEPARIN SOD (PORCINE) 5000 UNITS/ML VIAL SC SCH (19:36)
[2016-05-11] MEDS: ACETAMINOPHEN TAB 650MG DOSE (2X325MG) PO PRN (19:58)
[2016-05-11] MEDS ORDERED: LISINOPRIL 40 MG TAB PO SCH (21:00)
[2016-05-11 22:00] VITALS: BP 166/86
[2016-05-12] MEDS: methylPREDNISolone INJ 125 MG/2 ML VIAL (J2930) IV SCH ×3 (03:59→20:08)
[2016-05-12 04:20] LABS: BASO % 0.1 % (0.0-1.0); EOS # 0.1 K/mm3 (0.0-0.50); EOS % 0.6 % (0.0-3.0); LARGE UNSTAINED CELL % 0.4 % (0.0-4.0); LYMPH # 0.6 K/mm3 (1.5-4.5); LYMPH % 6.2 % (24.0-44.0); MEAN CORPUSCULAR HEMOGLOBIN 33.7 pg (27.0-33.0); MEAN CORPUSCULAR HGB CONC 33.1 g/dl (32.0-36.5); MEAN CORPUSCULAR VOLUME 101.8 fl (80.0-96.0); MONO # 0.1 K/mm3 (0.0-0.8); MONO % 1.4 % (0.0-5.0); NEUTROPHILS # 9.1 K/mm3 (1.8-7.7); NEUTROPHILS % 91.2 % (36.0-66.0); PLATELET COUNT, AUTOMATED 160 k/mm3 (150-450); RED CELL DISTRIBUTION WIDTH 11.9 % (11.5-14.5); WHITE BLOOD COUNT 9.9 K/mm3 (4.0-10.0)
[2016-05-12 04:33] LABS: INR 3.42
[2016-05-12 04:39] LABS: CALCIUM LEVEL 8.6 MG/DL (8.8-10.2); CREATININE FOR GFR 1.05 MG/DL (0.55-1.02); GLOMERULAR FILTRATION RATE 52.8 (>32); POTASSIUM SERUM 4.2 MEQ/L (3.5-5.1)
[2016-05-12 05:26] LABS: ERYTHROCYTE SEDIMENTATION RATE 8 mm/hr (0-42)
[2016-05-12 06:00] VITALS: BP 160/76
[2016-05-12] MEDS: cefTRIAXone SOD 2 GM in D5W MINI-BAG PLUS 50 ML IV SCH (06:22)
[2016-05-12] MEDS: IPRATROPIUM 0.5MG/ALBUTEROL 2.5MG INH SOL UD 3ML (DUONEB)(J7620) NEB SCH ×3 (06:36→19:57)
[2016-05-12] MEDS: BUDESONIDE 0.25 MG/2 ML INHALATION SUSPENSION INH SCH ×2 (06:36→19:57)
[2016-05-12] MEDS ORDERED: PHYTONADIONE 5 MG TAB PO ONE (07:00)
[2016-05-12] MEDS: MAGNESIUM CHLORIDE 64 MG TABCR (SLO MAG) PO SCH (08:27)
[2016-05-12] MEDS: FLUoxetine 10 MG CAP PO SCH (08:27)
[2016-05-12] MEDS: HEPARIN SOD (PORCINE) 5000 UNITS/ML VIAL SC SCH ×2 (08:28→20:08)
[2016-05-12] MEDS: GABAPENTIN 100 MG CAP PO SCH ×2 (08:28→20:08)
[2016-05-12] MEDS: AZITHROMYCIN 250 MG TAB PO SCH (08:28)
[2016-05-12] MEDS: LACTOBACILLUS ACIDOPHILUS CAP (BACID) PO SCH ×2 (08:28→18:05)
[2016-05-12] MEDS: NS 1,000 ML IV SCH (08:28)
--- NOTE | 2016-05-12 10:35 | ECGEPIP ---
Stationary ECG Study [facility] - ED Test Date: 2016-05-11 Pat Name: SANDRA DUNLAP Department: Room: [place] [address] Gender: F Director Online Marketing: kriss : 1930 Requested By: PEYMAN Geronimo Order Number: [id number] Reading MD: Steffanie Love Measurements Intervals [place] Rate: 72 P: KS: 0 QRS: 73 QRSD: 86 T: 7 QT: 398 QTc: 438 Interpretive Statements ATRIAL FIBRILLATION ABNORMAL RHYTHM ECG NSTTW ABNORMALITY DECREASED RATE 05/13/14 Electronically Signed On 05-12-2016 10:35:18 EST by Steffanie Love
[2016-05-12] MEDS: METOPROLOL TART 50 MG TAB PO SCH (13:21)
[2016-05-12] MEDS: INDAPAMIDE 1.25MG TABLET PO SCH (13:21)
[2016-05-12 14:00] VITALS: BP 166/84
[2016-05-12] MEDS: ATORVASTATIN 10 MG TAB PO SCH (20:08)
[2016-05-12 22:00] VITALS: BP 149/81
[2016-05-13] MEDS: IPRATROPIUM 0.5MG/ALBUTEROL 2.5MG INH SOL UD 3ML (DUONEB)(J7620) NEB SCH ×4 (00:17→20:09)
[2016-05-13] MEDS: NS 1,000 ML IV SCH (03:00)
[2016-05-13] MEDS: methylPREDNISolone INJ 125 MG/2 ML VIAL (J2930) IV SCH (04:00)
[2016-05-13] MEDS: IPRATROPIUM 0.5MG/ALBUTEROL 2.5MG INH SOL UD 3ML (DUONEB)(J7620) NEB PRN ×4 (04:27→22:49)
[2016-05-13 06:00] VITALS: BP 160/71
[2016-05-13] MEDS: cefTRIAXone SOD 2 GM in D5W MINI-BAG PLUS 50 ML IV SCH (06:33)
[2016-05-13 06:49] LABS: INR 1.5
[2016-05-13 06:52] LABS: BASO # 0.2 K/mm3 (0.0-0.2); BASO % 1.1 % (0.0-1.0); EOS % 0.1 % (0.0-3.0); LARGE UNSTAINED CELL # 0.1 K/mm3 (0.0-0.4); LARGE UNSTAINED CELL % 0.5 % (0.0-4.0); LYMPH # 0.6 K/mm3 (1.5-4.5); LYMPH % 2.9 % (24.0-44.0); MEAN CORPUSCULAR HGB CONC 32.8 g/dl (32.0-36.5); MEAN CORPUSCULAR VOLUME 103.9 fl (80.0-96.0); MONO # 0.5 K/mm3 (0.0-0.8); MONO % 3.3 % (0.0-5.0); PLATELET COUNT, AUTOMATED 184 k/mm3 (150-450); RED CELL DISTRIBUTION WIDTH 12.8 % (11.5-14.5); WHITE BLOOD COUNT 16.3 K/mm3 (4.0-10.0)
[2016-05-13] MEDS: BUDESONIDE 0.25 MG/2 ML INHALATION SUSPENSION INH SCH ×2 (07:07→20:09)
[2016-05-13 07:08] LABS: CALCIUM LEVEL 8.4 MG/DL (8.8-10.2); CREATININE FOR GFR 1.01 MG/DL (0.55-1.02); GLOMERULAR FILTRATION RATE 55.2 (>32); POTASSIUM SERUM 3.8 MEQ/L (3.5-5.1)
[2016-05-13] MEDS ORDERED: predniSONE 20 MG TAB PO SCH (09:00)
[2016-05-13] MEDS: HEPARIN SOD (PORCINE) 5000 UNITS/ML VIAL SC SCH (09:00)
[2016-05-13] MEDS: LACTOBACILLUS ACIDOPHILUS CAP (BACID) PO SCH ×2 (09:08→18:20)
[2016-05-13] MEDS: GABAPENTIN 100 MG CAP PO SCH ×2 (09:08→20:46)
[2016-05-13] MEDS: amLODIPine 10 MG TAB PO SCH (09:09)
[2016-05-13] MEDS: INDAPAMIDE 1.25MG TABLET PO SCH (09:11)
[2016-05-13] MEDS: AZITHROMYCIN 250 MG TAB PO SCH (09:12)
[2016-05-13] MEDS: FLUoxetine 10 MG CAP PO SCH (09:15)
[2016-05-13] MEDS: METOPROLOL TART 50 MG TAB PO SCH (09:15)
[2016-05-13] MEDS: LISINOPRIL 5 MG TAB PO SCH (09:15)
[2016-05-13] MEDS: MAGNESIUM CHLORIDE 64 MG TABCR (SLO MAG) PO SCH (09:16)
--- NOTE | 2016-05-13 09:39 | EDDOCDS ---
Physician Documentation [facility] Name: Kelsey Sosa Age: 85 yrs Sex: Female : 1930 Arrival Date: 05/11/2016 Time: 03:40 Bed 18 Private MD: Zara Franks Disposition: 05/11/16 07:29 Hospitalization ordered by Kamilla Brooks for Inpatient Admission. Preliminary diagnosis are Chronic obstructive pulmonary disease with (acute) exacerbation, Hypoxemia. - Bed requested for 5 Rivera. - Status is Inpatient Admission. hs1 - Condition is Stable. - Problem is an acute exacerbation. - Symptoms have improved. Historical: - Allergies: SULFA (SULFONAMIDES) (Vomit); - Home Meds: 1. Duo Neb every 4 hours 2. budesonide inhalation inhalation 2 times per day 3. Lipitor 10 mg Oral tab 1 tab once daily (Last dose: 05/10/2016) 4. sennacot 1 tab daily 5. lisinopril 40 mg Oral tab 1 tab once daily (Last dose: 05/10/2016) 6. metoprolol succinate 50 mg Tb24 1 tab once daily (Last dose: 05/10/2016) 7. Neurontin 100 mg Oral cap twice a day (Last dose: 05/10/2016) 8. slomag 128 mg daily (Last dose: 05/10/2016) 9. warfarin 2 mg Oral tab 1 tab daily except Mondays and Fridays 10. potassium chloride 10 mEq Oral cpER 1 cap once daily 11. indapamide 1.25 mg Oral tab 1 tab once daily (Last dose: 05/10/2016) 12. fluoxetine 10 mg Oral cap 1 caps once daily - PMHx: COPD; Emphysema; CAD; Hypertension; Atrial Fib; CVA; Hypercholesterolemia; - PSHx: CATARACT SURGERY; Stents, Coronary; hysterectomy, Partial; blethroplasty; - Social history: Smoking status: Patient states former smoker of tobacco. No barriers to communication noted, The patient speaks fluent Greek. - Family history: Not pertinent. - : The pt / caregiver states he / she is on anticoagulants: coumadin. Home medication list is obtained from family members. - Exposure Risk Screening:: None identified. Vital Signs: 05/11 03:57 BP 133 / 79; Pulse 78; Resp 20; Temp 97.5(T); Pulse Ox 90% on R/A; Weight 68.95 kg / kmg1 152.01 lbs (R); Height 5 ft. 3 in. (160.02 cm) (R); Pain 0/10; 04:06 BP 163 / 86 (auto/); kas2 04:07 Pulse 78 MON; Pulse Ox 91% ; kas2 04:21 BP 152 / 92 (auto/); kas2 04:21 Pulse 70 MON; Pulse Ox 97% ; kas2 04:36 BP 176 / 96 (auto/); kas2 04:36 Pulse 72 MON; Pulse Ox 97% ; kas2 04:51 BP 181 / 91 (auto/); kas2 04:51 Pulse 74 MON; Pulse Ox 97% ; kas2 05:06 BP 173 / 92 (auto/); kas2 05:06 Pulse 72 MON; Pulse Ox 98% ; kas2 05:21 Pulse 72 MON; Pulse Ox 99% ; kas2 05:21 BP 179 / 98 (auto/); kas2 05:27 BP 163 / 92 (auto/); kas2 05:27 Pulse 72 MON; Pulse Ox 100% ; kas2 05:36 BP 178 / 95 (auto/); kas2 05:36 Pulse 76 MON; Pulse Ox 99% ; kas2 05:50 BP 167 / 84 (auto/); kas2 05:50 Pulse 84 MON; Pulse Ox 93% ; kas2 05:51 BP 168 / 83 (auto/); kas2 05:51 Pulse 86 MON; Pulse Ox 93% ; kas2 06:06 BP 156 / 80 (auto/); kas2 06:06 Pulse 86 MON; Pulse Ox 96% ; kas2 06:16 Pulse 92 MON; Pulse Ox 96% ; kas2 06:23 BP 171 / 94 (auto/); kas2 06:26 Resp 24; Temp 97.5(O); Pain 0/10; kas2 06:36 BP 186 / 89 (auto/); kas2 06:36 Pulse 88 MON; Pulse Ox 98% ; kas2 06:52 Resp 20; Temp 97.6(O); Pain 0/10; kas2 07:36 BP 160 / 76 (auto/); hs1 07:37 Pulse 100 MON; Resp 20; Pulse Ox 98% on 2 lpm NC; hs1 03:57 Body Mass Index 26.93 (68.95 kg, 160.02 cm) [facility] [place]: 04:20 Solu-MEDROL 125 mg IVP once ordered. mm11 04:20 -Blood Culture (Adults Only), peripheral from different site, or from device/port/PICC mm11 etc. if present ordered. 04:20 Call Respiratory ordered. mm11 04:20 Rheostat Assembler/Pulse Ox/q 15 min VS ordered. mm11 04:20 IV Saline Lock ordered. mm11 04:20 Oxygen at 4L/Min NC or Home dosage ordered. mm11 04:20 Rhythm Strip to chart ordered. mm11 04:20 Albuterol-Ipratropium 1 neb Nebulizer every 20 minutes x3 ordered. mm11 04:21 -Blood Culture Ordered. EDMS 04:21 B-Type Natiuretic Peptide Ordered. EDMS 04:21 Basic Metabolic Profile Ordered. EDMS 04:21 CBC with Diff Ordered. EDMS 04:21 Troponin Ordered. EDMS 04:21 Cardiac Injury Profile Ordered. EDMS 04:21 Chest, 1 View Ordered. EDMS 04:22 ECG WITH READING ER PHYS+CARDIAG ordered. EDMS 04:25 Call Respiratory complete. tmm1 04:28 -Blood Culture (Adults Only), peripheral from different site, or from device/port/PICC tmm1 etc. if present complete. 04:28 BLOOD CULTURES Ordered. EDMS 04:38 CBC with Diff Reviewed. mm11 04:39 PT/INR Ordered. EDMS 05:05 B-Type Natiuretic Peptide Reviewed. mm11 05:05 Basic Metabolic Profile Reviewed. mm11 05:05 PT/INR Reviewed. mm11 05:05 Troponin Reviewed. mm11 05:05 Cardiac Injury Profile Reviewed. mm11 05:19 CT Chest Angio R/O PE Ordered. EDMS 06:02 Financial registration complete. hs2 06:02 [facility] Payment Agreement was scanned into [employer] and attached to record. hs2 06:38 Call Respiratory ordered. mm11 06:38 Albuterol-Ipratropium 1 neb Nebulizer every 20 minutes x3 ordered. mm11 06:39 cefTRIAXone 1 grams IVPB once over 30 mins; dilute in 50mL of NS or D5W ordered. mm11 06:39 -Arterial Blood Gas Ordered. EDMS 06:40 BED REQUEST+ADM ordered. EDMS 06:40 Call Respiratory complete. deg 07:09 URINALYSIS Ordered. EDMS 07:09 LACTIC ACID LEVEL, LACTATE Ordered. EDMS 07:09 CARDIAC MARKER PANEL Ordered. EDMS 07:09 CARDIAC MARKER PANEL Ordered. EDMS 07:09 SPUTUM CULTURE AND GRAM STAIN Ordered. EDMS 07:09 BLOOD CULTURES Ordered. EDMS 07:11 PHYSICAL THERAPY EVAL & TREAT ordered. EDMS 07:11 Admission / Observation Status ordered. EDMS 07:12 OTHER CUSTOM DIETS ordered. EDMS 07:36 ECHOCARD,DOPPLER/COLOR FLOW ordered. EDMS 08:58 T-Sheet-- Draft Copy was scanned into Player[employer] and attached to record. [facility] 11:48 [facility] Payment Agreement was scanned into [employer] and attached to record. 11:49 Trend VS was scanned into [employer] and attached to record. gb 11:49 Radiology Report was scanned into Player[employer] and attached to record. gb Administered Medications: 04:52 Drug: Solu-MEDROL 125 mg [Solu-Medrol 500 mg intravenous solution (125 mg)] Route: IVP; kas2 Site: left antecubital; 05:15 Drug: Albuterol-Ipratropium 1 neb [ipratropium-albuterol 0.5 mg-3 mg(2.5 mg base)/3 mL jc3 nebulization soln (1 neb)] Route: Nebulizer; 05:27 Drug: Albuterol-Ipratropium 1 neb [ipratropium-albuterol 0.5 mg-3 mg(2.5 mg base)/3 mL jc3 nebulization soln (1 neb)] Route: Nebulizer; 05:37 Drug: Albuterol-Ipratropium 1 neb [ipratropium-albuterol 0.5 mg-3 mg(2.5 mg base)/3 mL jc3 nebulization soln (1 neb)] Route: Nebulizer; 06:49 Drug: cefTRIAXone 1 grams [ceftriaxone 1 gram solution for injection] Route: IVPB; kas2 Infused Over: 30 mins; Site: left antecubital; 07:48 Follow up: IV Status: Completed infusion; IV Intake: 50ml hs1 07:02 Drug: Albuterol-Ipratropium 1 neb [ipratropium-albuterol 0.5 mg-3 mg(2.5 mg base)/3 mL jc3 nebulization soln (1 neb)] Route: Nebulizer; 07:09 Drug: Albuterol-Ipratropium 1 neb [ipratropium-albuterol 0.5 mg-3 mg(2.5 mg base)/3 mL jc3 nebulization soln (1 neb)] Route: Nebulizer; 07:19 Drug: Albuterol-Ipratropium 1 neb [ipratropium-albuterol 0.5 mg-3 mg(2.5 mg base)/3 mL jc3 nebulization soln (1 neb)] Route: Nebulizer; Signatures: Dispatcher [employer] EDMS Renate Holly, Branch Manager Unit deg Zulma Dominguez, RN RN kmg1 Jenni Moore, Reg Reg gb Jaiden Castellano, DO mm11 Alexandra Cook RN RN hs1 Adelaida Olivier, TABLEAU DEVELOPER TABLEAU DEVELOPER tmm1 Heriberto Kitchen RN RN [facility] Jody Choi, Reg Reg hs2 Lena Mcrae RN RN kas2 Hoffert, Sarah seh Colello, Joseph 3 The chart was reviewed and I authenticate all verbal orders and agree with the evaluation and treatment provided.Attachments: 06:02 [facility] Payment Agreement hs2 08:58 T-Sheet-- Draft Copy [facility] 11:48 [facility] Payment Agreement gb Chart Complete MTDD
--- NOTE | 2016-05-13 09:39 | EDDOCDS ---
Physician Documentation [facility] Name: Kelsey Sosa Age: 85 yrs Sex: Female : 1930 Arrival Date: 05/11/2016 Time: 03:40 Bed 18 Private MD: Zara Franks Disposition: 05/11/16 07:29 Hospitalization ordered by Kamilla Brooks for Inpatient Admission. Preliminary diagnosis are Chronic obstructive pulmonary disease with (acute) exacerbation, Hypoxemia. - Bed requested for 5 Rivera. - Status is Inpatient Admission. hs1 - Condition is Stable. - Problem is an acute exacerbation. - Symptoms have improved. Historical: - Allergies: SULFA (SULFONAMIDES) (Vomit); - Home Meds: 1. Duo Neb every 4 hours 2. budesonide inhalation inhalation 2 times per day 3. Lipitor 10 mg Oral tab 1 tab once daily (Last dose: 05/10/2016) 4. sennacot 1 tab daily 5. lisinopril 40 mg Oral tab 1 tab once daily (Last dose: 05/10/2016) 6. metoprolol succinate 50 mg Tb24 1 tab once daily (Last dose: 05/10/2016) 7. Neurontin 100 mg Oral cap twice a day (Last dose: 05/10/2016) 8. slomag 128 mg daily (Last dose: 05/10/2016) 9. warfarin 2 mg Oral tab 1 tab daily except Mondays and Fridays 10. potassium chloride 10 mEq Oral cpER 1 cap once daily 11. indapamide 1.25 mg Oral tab 1 tab once daily (Last dose: 05/10/2016) 12. fluoxetine 10 mg Oral cap 1 caps once daily - PMHx: COPD; Emphysema; CAD; Hypertension; Atrial Fib; CVA; Hypercholesterolemia; - PSHx: CATARACT SURGERY; Stents, Coronary; hysterectomy, Partial; blethroplasty; - Social history: Smoking status: Patient states former smoker of tobacco. No barriers to communication noted, The patient speaks fluent Setswana. - Family history: Not pertinent. - : The pt / caregiver states he / she is on anticoagulants: coumadin. Home medication list is obtained from family members. - Exposure Risk Screening:: None identified. Vital Signs: 05/11 03:57 BP 133 / 79; Pulse 78; Resp 20; Temp 97.5(T); Pulse Ox 90% on R/A; Weight 68.95 kg / kmg1 152.01 lbs (R); Height 5 ft. 3 in. (160.02 cm) (R); Pain 0/10; 04:06 BP 163 / 86 (auto/); kas2 04:07 Pulse 78 MON; Pulse Ox 91% ; kas2 04:21 BP 152 / 92 (auto/); kas2 04:21 Pulse 70 MON; Pulse Ox 97% ; kas2 04:36 BP 176 / 96 (auto/); kas2 04:36 Pulse 72 MON; Pulse Ox 97% ; kas2 04:51 BP 181 / 91 (auto/); kas2 04:51 Pulse 74 MON; Pulse Ox 97% ; kas2 05:06 BP 173 / 92 (auto/); kas2 05:06 Pulse 72 MON; Pulse Ox 98% ; kas2 05:21 Pulse 72 MON; Pulse Ox 99% ; kas2 05:21 BP 179 / 98 (auto/); kas2 05:27 BP 163 / 92 (auto/); kas2 05:27 Pulse 72 MON; Pulse Ox 100% ; kas2 05:36 BP 178 / 95 (auto/); kas2 05:36 Pulse 76 MON; Pulse Ox 99% ; kas2 05:50 BP 167 / 84 (auto/); kas2 05:50 Pulse 84 MON; Pulse Ox 93% ; kas2 05:51 BP 168 / 83 (auto/); kas2 05:51 Pulse 86 MON; Pulse Ox 93% ; kas2 06:06 BP 156 / 80 (auto/); kas2 06:06 Pulse 86 MON; Pulse Ox 96% ; kas2 06:16 Pulse 92 MON; Pulse Ox 96% ; kas2 06:23 BP 171 / 94 (auto/); kas2 06:26 Resp 24; Temp 97.5(O); Pain 0/10; kas2 06:36 BP 186 / 89 (auto/); kas2 06:36 Pulse 88 MON; Pulse Ox 98% ; kas2 06:52 Resp 20; Temp 97.6(O); Pain 0/10; kas2 07:36 BP 160 / 76 (auto/); hs1 07:37 Pulse 100 MON; Resp 20; Pulse Ox 98% on 2 lpm NC; hs1 03:57 Body Mass Index 26.93 (68.95 kg, 160.02 cm) [facility] [place]: 04:20 Solu-MEDROL 125 mg IVP once ordered. mm11 04:20 -Blood Culture (Adults Only), peripheral from different site, or from device/port/PICC mm11 etc. if present ordered. 04:20 Call Respiratory ordered. mm11 04:20 Petrography Teacher/Pulse Ox/q 15 min VS ordered. mm11 04:20 IV Saline Lock ordered. mm11 04:20 Oxygen at 4L/Min NC or Home dosage ordered. mm11 04:20 Rhythm Strip to chart ordered. mm11 04:20 Albuterol-Ipratropium 1 neb Nebulizer every 20 minutes x3 ordered. mm11 04:21 -Blood Culture Ordered. EDMS 04:21 B-Type Natiuretic Peptide Ordered. EDMS 04:21 Basic Metabolic Profile Ordered. EDMS 04:21 CBC with Diff Ordered. EDMS 04:21 Troponin Ordered. EDMS 04:21 Cardiac Injury Profile Ordered. EDMS 04:21 Chest, 1 View Ordered. EDMS 04:22 ECG WITH READING ER PHYS+CARDIAG ordered. EDMS 04:25 Call Respiratory complete. tmm1 04:28 -Blood Culture (Adults Only), peripheral from different site, or from device/port/PICC tmm1 etc. if present complete. 04:28 BLOOD CULTURES Ordered. EDMS 04:38 CBC with Diff Reviewed. mm11 04:39 PT/INR Ordered. EDMS 05:05 B-Type Natiuretic Peptide Reviewed. mm11 05:05 Basic Metabolic Profile Reviewed. mm11 05:05 PT/INR Reviewed. mm11 05:05 Troponin Reviewed. mm11 05:05 Cardiac Injury Profile Reviewed. mm11 05:19 CT Chest Angio R/O PE Ordered. EDMS 06:02 Financial registration complete. hs2 06:02 [facility] [place] was [place] into [employer] and attached to record. hs2 06:38 Call Respiratory ordered. mm11 06:38 Albuterol-Ipratropium 1 neb Nebulizer every 20 minutes x3 ordered. mm11 06:39 cefTRIAXone 1 grams IVPB once over 30 mins; dilute in 50mL of NS or D5W ordered. mm11 06:39 -Arterial Blood Gas Ordered. EDMS 06:40 BED REQUEST+ADM ordered. EDMS 06:40 Call Respiratory complete. deg 07:09 URINALYSIS Ordered. EDMS 07:09 LACTIC ACID LEVEL, LACTATE Ordered. EDMS 07:09 CARDIAC MARKER PANEL Ordered. EDMS 07:09 CARDIAC MARKER PANEL Ordered. EDMS 07:09 SPUTUM CULTURE AND GRAM STAIN Ordered. EDMS 07:09 BLOOD CULTURES Ordered. EDMS 07:11 PHYSICAL THERAPY EVAL & TREAT ordered. EDMS 07:11 Admission / Observation Status ordered. EDMS 07:12 OTHER CUSTOM DIETS ordered. EDMS 07:36 ECHOCARD,DOPPLER/COLOR FLOW ordered. EDMS 08:58 T-Sheet-- Draft Copy was scanned into [employer] and attached to record. [facility] 11:48 [facility] [place] Agreement was scanned into [employer] and attached to record. 11:49 Trend VS was scanned into [employer] and attached to record. gb 11:49 Radiology Report was scanned into [employer] and attached to record. gb Administered Medications: 04:52 Drug: Solu-MEDROL 125 mg [Solu-Medrol 500 mg intravenous solution (125 mg)] Route: IVP; kas2 Site: left antecubital; 05:15 Drug: Albuterol-Ipratropium 1 neb [ipratropium-albuterol 0.5 mg-3 mg(2.5 mg base)/3 mL jc3 nebulization soln (1 neb)] Route: Nebulizer; 05:27 Drug: Albuterol-Ipratropium 1 neb [ipratropium-albuterol 0.5 mg-3 mg(2.5 mg base)/3 mL jc3 nebulization soln (1 neb)] Route: Nebulizer; 05:37 Drug: Albuterol-Ipratropium 1 neb [ipratropium-albuterol 0.5 mg-3 mg(2.5 mg base)/3 mL jc3 nebulization soln (1 neb)] Route: Nebulizer; 06:49 Drug: cefTRIAXone 1 grams [ceftriaxone 1 gram solution for injection] Route: IVPB; kas2 Infused Over: 30 mins; Site: left antecubital; 07:48 Follow up: IV Status: Completed infusion; IV Intake: 50ml hs1 07:02 Drug: Albuterol-Ipratropium 1 neb [ipratropium-albuterol 0.5 mg-3 mg(2.5 mg base)/3 mL jc3 nebulization soln (1 neb)] Route: Nebulizer; 07:09 Drug: Albuterol-Ipratropium 1 neb [ipratropium-albuterol 0.5 mg-3 mg(2.5 mg base)/3 mL jc3 nebulization soln (1 neb)] Route: Nebulizer; 07:19 Drug: Albuterol-Ipratropium 1 neb [ipratropium-albuterol 0.5 mg-3 mg(2.5 mg base)/3 mL jc3 nebulization soln (1 neb)] Route: Nebulizer; Signatures: Dispatcher [employer] EDMS Renate Holly, Conditioner Tumbler Operator Unit deg Zulma Dominguez, RN RN kmg1 Jenni Moore, Reg Reg gb Jaiden Castellano, DO mm11 Alexandra Coko RN RN hs1 Adelaida Olivier, GOLD LEAF LABORER GOLD LEAF LABORER tmm1 Heriberto Kitchen RN RN [facility] Jody Choi, Reg Reg hs2 Lena Mcrae RN RN kas2 Hoffert, Sarah seh Colello, Joseph 3 The chart was reviewed and I authenticate all verbal orders and agree with the evaluation and treatment provided.Attachments: 06:02 PENDING SALE TO [facility] Payment Agreement hs2 08:58 T-Sheet-- Draft Copy [facility] 11:48 PENDING SALE TO [facility] Payment Agreement gb Chart Complete MTDD
--- NOTE | 2016-05-13 09:39 | EDDOCDS ---
Nurse's Notes [facility] Name: Kelsey Sosa Age: 85 yrs Sex: Female : 1930 Arrival Date: 05/11/2016 Time: 03:40 Bed 18 Private MD: Zara Franks Diagnosis: Chronic obstructive pulmonary disease with (acute) exacerbation;Hypoxemia Presentation: 05/11 03:45 Presenting complaint: Was seen by PCP for difficulty breathing on Friday. Tonight is kmg1 worse. Edema in both legs. 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 Suicide/Homicide risk assessment- the patient denies having any suicidal and/or homicidal ideations. Transition of care: patient was not received from another setting of care. 03:45 Acuity: BETSEY Level 3 kmg1 03:45 Method Of Arrival: Walkin/Carried/Asstd km 04:00 Adult Sepsis Screening: The patient does not have new or worsening altered mentation. kmg1 Patient's respiratory rate is less than 22. Systolic blood pressure is greater than 100. Patient has a qSOFA score of 0- Negative Sepsis Screen. Triage Assessment: 03:57 General: Appears in no apparent distress, comfortable, Behavior is appropriate for age. kmg1 Pain: Denies pain. Respiratory: Onset: The symptoms/episode began/occurred gradually, Airway is patent Respiratory effort is even, unlabored, Respiratory pattern is regular, symmetrical, Reports shortness of breath cough that is. Historical: - Allergies: SULFA (SULFONAMIDES) (Vomit); - Home Meds: 1. Duo Neb every 4 hours 2. budesonide inhalation inhalation 2 times per day 3. Lipitor 10 mg Oral tab 1 tab once daily (Last dose: 05/10/2016) 4. sennacot 1 tab daily 5. lisinopril 40 mg Oral tab 1 tab once daily (Last dose: 05/10/2016) 6. metoprolol succinate 50 mg Tb24 1 tab once daily (Last dose: 05/10/2016) 7. Neurontin 100 mg Oral cap twice a day (Last dose: 05/10/2016) 8. slomag 128 mg daily (Last dose: 05/10/2016) 9. warfarin 2 mg Oral tab 1 tab daily except Mondays and Fridays 10. potassium chloride 10 mEq Oral cpER 1 cap once daily 11. indapamide 1.25 mg Oral tab 1 tab once daily (Last dose: 05/10/2016) 12. fluoxetine 10 mg Oral cap 1 caps once daily - PMHx: COPD; Emphysema; CAD; Hypertension; Atrial Fib; CVA; Hypercholesterolemia; - PSHx: CATARACT SURGERY; Stents, Coronary; hysterectomy, Partial; blethroplasty; - Social history: Smoking status: Patient states former smoker of tobacco. No barriers to communication noted, The patient speaks fluent Romansh. - Family history: Not pertinent. - : The pt / caregiver states he / she is on anticoagulants: coumadin. Home medication list is obtained from family members. - Exposure Risk Screening:: None identified. Screenin:17 Screening information is obtained from the patient. Fall risk: At risk due to age. kas2 Assistance ADL's: requires no assistance with activities of daily living. Abuse/DV Screen: The patient / caregiver reports he/she is: not in a situation that causes fear, pain or injury. Nutritional screening: No deficits noted. Advance Directives: Currently, there is no health care proxy. There is no active DNR order. There is a living will, but a copy is not available at this time. There is no Power of Brand Sales Consultant. home support is adequate. Assessment: 04:16 General: Appears in no apparent distress, comfortable, well nourished, well groomed, kas2 Behavior is appropriate for age, cooperative. Pain: Denies pain. Neurological: Level of Consciousness is awake, alert, Oriented to person, place, time. Cardiovascular: Capillary refill < 3 seconds Heart tones S1 S2 present Rhythm is sinus rhythm No ectopy. Cardiovascular: Edema is 2+ to left midcalf, left ankle, left foot, left toes, right midcalf, right ankle, right foot and right toes. Respiratory: Airway is patent Respiratory effort is even, unlabored, Respiratory pattern is regular, symmetrical, Breath sounds are diminished bilaterally. Breath sounds with wheezes inspiratory expiratory bilaterally. GI: Abdomen is obese, Bowel sounds present X 4 quads. Abd is soft and non tender X 4 quads. Derm: Skin is intact, Skin is dry, Skin is pink, warm & dry. normal, Skin temperature is warm. 05:15 General: Patient sitting up in bed with family at bedside. Denies pain or discomfort at kas2 this time. Appears comfortable. Call borges within reach. Will continue to monitor.. 05:30 General: Patient gone to CT scan via stretcher with tech.. kas2 05:45 General: Patient back from CT scan via stretcher with RN. Resettle in bed. Appears kas2 comfortable. Denies pain or discomfort at this time. No apparent distress. Call borges within reach. Will continue to monitor.. 06:50 General: Appears in no apparent distress, comfortable, well nourished, well groomed, kas2 Behavior is appropriate for age, cooperative. Pain: Denies pain. Neurological: Level of Consciousness is awake, alert, Oriented to person, place, time. Cardiovascular: Rhythm is sinus rhythm No ectopy. Respiratory: Airway is patent Respiratory effort is even, unlabored, Respiratory pattern is regular, symmetrical, Breath sounds are diminished bilaterally. Breath sounds with wheezes inspiratory expiratory bilaterally. Derm: Skin is intact, Skin is dry, Skin is pink, warm & dry. normal, Skin temperature is warm. 07:44 General: Appears in no apparent distress, Behavior is appropriate for age, cooperative. hs1 Neurological: Level of Consciousness is awake, alert, obeys commands, Oriented to person, place, time. Cardiovascular: Edema is 2+ to left ankle, left foot, left toes, right ankle, right foot and right toes. Respiratory: Airway is patent Respiratory effort is unlabored, Respiratory pattern is regular, symmetrical, Breath sounds are diminished bilaterally. Breath sounds with wheezes bilaterally. Derm: Skin is normal. 08:14 Reassessment: Patient appears in no apparent distress at this time. Patient states hs1 symptoms have improved. after last breathing treatment feeling better. Pt tolerated breakfast well. Family continues at bedside. No other needs made known at this time. . Vital Signs: 03:57 BP 133 / 79; Pulse 78; Resp 20; Temp 97.5(T); Pulse Ox 90% on R/A; Weight 68.95 kg (R); kmg1 Height 5 ft. 3 in. (160.02 cm) (R); Pain 0/10; 04:06 BP 163 / 86 (auto/); kas2 04:07 Pulse 78 MON; Pulse Ox 91% ; kas2 04:21 BP 152 / 92 (auto/); kas2 04:21 Pulse 70 MON; Pulse Ox 97% ; kas2 04:36 BP 176 / 96 (auto/); kas2 04:36 Pulse 72 MON; Pulse Ox 97% ; kas2 04:51 BP 181 / 91 (auto/); kas2 04:51 Pulse 74 MON; Pulse Ox 97% ; kas2 05:06 BP 173 / 92 (auto/); kas2 05:06 Pulse 72 MON; Pulse Ox 98% ; kas2 05:21 Pulse 72 MON; Pulse Ox 99% ; kas2 05:21 BP 179 / 98 (auto/); kas2 05:27 BP 163 / 92 (auto/); kas2 05:27 Pulse 72 MON; Pulse Ox 100% ; kas2 05:36 BP 178 / 95 (auto/); kas2 05:36 Pulse 76 MON; Pulse Ox 99% ; kas2 05:50 BP 167 / 84 (auto/); kas2 05:50 Pulse 84 MON; Pulse Ox 93% ; kas2 05:51 BP 168 / 83 (auto/); kas2 05:51 Pulse 86 MON; Pulse Ox 93% ; kas2 06:06 BP 156 / 80 (auto/); kas2 06:06 Pulse 86 MON; Pulse Ox 96% ; kas2 06:16 Pulse 92 MON; Pulse Ox 96% ; kas2 06:23 BP 171 / 94 (auto/); kas2 06:26 Resp 24; Temp 97.5(O); Pain 0/10; kas2 06:36 BP 186 / 89 (auto/); kas2 06:36 Pulse 88 MON; Pulse Ox 98% ; kas2 06:52 Resp 20; Temp 97.6(O); Pain 0/10; kas2 07:36 BP 160 / 76 (auto/); hs1 07:37 Pulse 100 MON; Resp 20; Pulse Ox 98% on 2 lpm NC; hs1 03:57 Body Mass Index 26.93 (68.95 kg, 160.02 cm) [facility] [place] Vitals: 03:57 Log In Time: May 11, 2016 at 03:43. [facility] [place] ED Course: 03:42 Patient visited by Shana Davison. lja 03:42 Zara Franks is Private Physician. lja 03:42 Patient moved to Waiting [facility] 03:47 Triage Initiated km 04:00 Lena Mcrae,RN is Primary Nurse. [facility] [place] 04:00 Patient moved to 18 [facility] [place] 04:10 Jaiden Castellano DO is Attending Physician. mm11 04:10 Patient visited by Jaiden Castellano DO. mm11 04:18 Patient visited by Lena Mcrae RN. kas2 04:18 Inserted saline lock: 20 gauge in left antecubital area and blood collected. The kas2 patient tolerated the procedure well. 04:18 No procedures done that require assistance. kas2 04:19 Patient visited by Jaiden Castellano DO. mm11 04:25 Patient visited by Lena Mcrae RN. kas2 04:25 The patient / caregiver is instructed regarding the plan of care and ED course. Cardiac kas2 monitor on. Pulse ox on. NIBP on. 04:25 O2 via nasal cannula \T\ 4L/min. kas2 04:59 BLOOD CULTURES Sent. jlm 05:04 Patient visited by Jaiden Castellano DO. mm11 05:07 Patient visited by Lena Mcrae RN. kas2 05:16 Patient visited by Lena Mcrae RN. kas2 05:51 Patient visited by Lena Mcrae RN. kas2 06:02 [facility] Payment Agreement was scanned into [employer] and attached to record. hs2 06:05 Patient visited by Lena Mcrae RN. kas2 06:06 Patient name changed from Kelsey\S\A\S\Sosa\S\ to Kelsey\S\Martha\S\Sosa. EDMS 06:26 Patient visited by Lena Mcrae RN. kas2 06:44 CT Chest Angio R/O PE Returned. EDMS 06:52 Patient visited by Lena Mcrae RN. kas2 07:02 Primary Nurse role handed off by Lena Mcrae RN kas2 07:02 -Arterial Blood Gas Sent. jc3 07:29 Patient visited by Jaiden Castellano DO. mm11 07:29 Kamilla Brooks is Hospitalizing Provider. mm11 08:58 T-Sheet-- Draft Copy was scanned into [employer] and attached to record. se 11:48 [facility] Payment Agreement was scanned into [employer] and attached to record. gb 11:49 Trend VS was scanned into [employer] and attached to record. gb 11:49 Radiology Report was scanned into [employer] and attached to record. gb Administered Medications: 04:52 Drug: Solu-MEDROL 125 mg [Solu-Medrol 500 mg intravenous solution (125 mg)] Route: IVP; kas2 Site: left antecubital; 05:15 Drug: Albuterol-Ipratropium 1 neb [ipratropium-albuterol 0.5 mg-3 mg(2.5 mg base)/3 mL jc3 nebulization soln (1 neb)] Route: Nebulizer; 05:27 Drug: Albuterol-Ipratropium 1 neb [ipratropium-albuterol 0.5 mg-3 mg(2.5 mg base)/3 mL jc3 nebulization soln (1 neb)] Route: Nebulizer; 05:37 Drug: Albuterol-Ipratropium 1 neb [ipratropium-albuterol 0.5 mg-3 mg(2.5 mg base)/3 mL jc3 nebulization soln (1 neb)] Route: Nebulizer; 06:49 Drug: cefTRIAXone 1 grams [ceftriaxone 1 gram solution for injection] Route: IVPB; [facility] Infused Over: 30 mins; Site: left antecubital; 07:48 Follow up: IV Status: Completed infusion; IV Intake: 50ml hs1 07:02 Drug: Albuterol-Ipratropium 1 neb [ipratropium-albuterol 0.5 mg-3 mg(2.5 mg base)/3 mL jc3 nebulization soln (1 neb)] Route: Nebulizer; 07:09 Drug: Albuterol-Ipratropium 1 neb [ipratropium-albuterol 0.5 mg-3 mg(2.5 mg base)/3 mL jc3 nebulization soln (1 neb)] Route: Nebulizer; 07:19 Drug: Albuterol-Ipratropium 1 neb [ipratropium-albuterol 0.5 mg-3 mg(2.5 mg base)/3 mL jc3 nebulization soln (1 neb)] Route: Nebulizer; Attachments: 11:49 Trend VS gb Intake: 07:48 IV: 50.00ml; Total: 50.00ml. hs1 RT: 05:20 Initial Med Neb Given as ordered. O2 via nasal cannula \T\ 2L/min. Respiratory: Breath jc3 sounds are diminished bilaterally. Breath sounds with wheezes bilaterally. at expiration. 05:27 Subsequent Med Neb Given as ordered. Respiratory: Breath sounds are diminished jc3 bilaterally. Breath sounds with wheezes bilaterally. at expiration. 05:37 Subsequent Med Neb Given as ordered. Respiratory: Breath sounds are coarse Breath jc3 sounds are diminished bilaterally. Breath sounds with wheezes bilaterally. at expiration. 07:04 ABG's drawn from right radial artery pressure held for 5 minutes no bleeding noted jc3 pressure bandage applied specimen sent pt. tolerated well. Subsequent Med Neb Given as ordered. Respiratory: Breath sounds are coarse Breath sounds with crackles in left upper lobe and left lower lobe Breath sounds are diminished bilaterally. Breath sounds with wheezes. 07:19 Subsequent Med Neb Given as ordered. Respiratory: Breath sounds are coarse Breath jc3 sounds with crackles Breath sounds are diminished bilaterally. Breath sounds with wheezes. Order Results: Lab Order: B-Type Natiuretic Peptide; SPEC'M 05/11/16 04:14 Test: BRAIN NATRIURETIC PEPTIDE; Value: 319; Range: <100; Abnormal: Above high normal; Units: PG/ML; Status: F Lab Order: Basic Metabolic Profile; SPEC'M 05/11/16 04:14 Test: GLUCOSE, FASTING; Value: 94; Range: 83-110; Units: MG/DL; Status: F Test: BLOOD UREA NITROGEN; Value: 23; Range: 7-18; Abnormal: Above high normal; Units: MG/DL; Status: F Test: CREATININE FOR GFR; Value: 0.89; Range: 0.55-1.02; Units: MG/DL; Status: F Test: GLOMERULAR FILTRATION RATE; Value: > 60.0; Range: >32; Status: F Test: SODIUM LEVEL; Value: 139; Range: 136-145; Units: MEQ/L; Status: F Test: POTASSIUM SERUM; Value: 4.1; Range: 3.5-5.1; Units: MEQ/L; Status: F Test: CHLORIDE LEVEL; Value: 104; Range: 98-107; Units: MEQ/L; Status: F Test: CARBON DIOXIDE LEVEL; Value: 29; Range: 21-32; Units: MEQ/L; Status: F Test: ANION GAP; Value: 6; Range: 8-16; Abnormal: Below low normal; Units: MEQ/L; Status: F Test: CALCIUM LEVEL; Value: 9.2; Range: 8.8-10.2; Units: MG/DL; Status: F Test Note: ; Units are mL/min/1.73 m2 Chronic Kidney Disease Staging per NKF: Stage I & II GFR >=60 Normal to Mildly Decreased Stage III GFR 30-59 Moderately Decreased Stage IV GFR 15-29 Severely Decreased Stage V GFR <15 Very Little GFR Left ESRD GFR <15 on SALES SERVICE TECHNICIAN Lab Order: CBC with Diff; SPEC'M 05/11/16 04:14 Test: WHITE BLOOD COUNT; Value: 6.3; Range: 4.0-10.0; Units: K/mm3; Status: F Test: RED BLOOD COUNT; Value: 4.02; Range: 4.00-5.40; Units: M/mm3; Status: F Test: HEMOGLOBIN; Value: 13.4; Range: 12.0-16.0; Units: g/dl; Status: F Test: HEMATOCRIT; Value: 42.2; Range: 36.0-47.0; Units: %; Status: F Test: MEAN CORPUSCULAR VOLUME; Value: 104.8; Range: 80.0-96.0; Abnormal: Above high normal; Units: fl; Status: F Test: MEAN CORPUSCULAR HEMOGLOBIN; Value: 33.3; Range: 27.0-33.0; Abnormal: Above high normal; Units: pg; Status: F Test: MEAN CORPUSCULAR HGB CONC; Value: 31.8; Range: 32.0-36.5; Abnormal: Below low normal; Units: g/dl; Status: F Test: RED CELL DISTRIBUTION WIDTH; Value: 12.8; Range: 11.5-14.5; Units: %; Status: F Test: PLATELET COUNT, AUTOMATED; Value: 174; Range: 150-450; Units: k/mm3; Status: F Test: NEUTROPHILS %; Value: 62.7; Range: 36.0-66.0; Units: %; Status: F Test: LYMPH %; Value: 17.9; Range: 24.0-44.0; Abnormal: Below low normal; Units: %; Status: F Test: MONO %; Value: 11.0; Range: 0.0-5.0; Abnormal: Above high normal; Units: %; Status: F Test: EOS %; Value: 3.5; Range: 0.0-3.0; Abnormal: Above high normal; Units: %; Status: F Test: BASO %; Value: 1.2; Range: 0.0-1.0; Abnormal: Above high normal; Units: %; Status: F Test: LARGE UNSTAINED CELL %; Value: 3.8; Range: 0.0-4.0; Units: %; Status: F Test: NEUTROPHILS #; Value: 4.0; Range: 1.8-7.7; Units: K/mm3; Status: F Test: LYMPH #; Value: 1.4; Range: 1.5-4.5; Abnormal: Below low normal; Units: K/mm3; Status: F Test: MONO #; Value: 0.7; Range: 0.0-0.8; Units: K/mm3; Status: F Test: EOS #; Value: 0.2; Range: 0.0-0.50; Units: K/mm3; Status: F Test: BASO #; Value: 0.1; Range: 0.0-0.2; Units: K/mm3; Status: F Test: LARGE UNSTAINED CELL #; Value: 0.2; Range: 0.0-0.4; Units: K/mm3; Status: F Lab Order: Troponin; SPEC'M 05/11/16 04:14 Test: TROPONIN I; Value: < 0.02; Range: < 0.10; Units: NG/ML; Status: F Test Note: ; Troponin I Reference Interval for [employer] LOCI: 99th Percentile= 0.00-0.045 ng/ml Risk Stratification: <= 0.10 ng/ml Decreased Risk for Adverse Clinical Events. 0.10-1.50 ng/ml Increased Risk for Adverse Clinical Events. Evaluation of additional criterion and/or repeat testing in 2-6 hours is suggested to rule out myocardial damage. >= 1.50 ng/ml Indicative of Myocardial Injury. Lab Order: Cardiac Injury Profile; SPEC'M 05/11/16 04:14 Test: CPK CREATINE PHOSPHOKINASE; Value: 74; Range: 26-192; Units: U/L; Status: F Test: CK-MB VALUE MASS; Value: 2.9; Range: 0.0-3.6; Units: NG/ML; Status: F Test: MB/CK RELATIVE INDEX; Value: 3.91; Range: < OR =4; Status: F Test Note: ; DIAGNOSIS CRITERIA MMB ng/ml Relative Index (RI) NON-AMI < or = 5 N/A BHATT ZONE > 5 < or = 4 AMI > 5 > 4 Lab Order: PT/INR; [facility] 05/11/16 04:14 Test: PROTHROMBIN TIME; Value: 30.8; Range: 12.3-14.5; Abnormal: Above high normal; Units: SECONDS; Status: F Test: INR; Value: 2.95; Status: F Test Note: ; THERAPUTIC HUMAN INR VALUES INDICATIONS NORMAL RANGES PROPHYLAXIS/TREATMENT OF: VENOUS THROMBOSIS 2.0-3.0 PULMONARY EMBOLISM 2.0-3.0 PREVENTION OF SYSTEMIC EMBOLISM FROM: TISSUE HEART VALVES 2.0-3.0 ACUTE MYOCARDIAL INFARCTION 2.0-3.0 VALVULAR HEART DISEASE 2.0-3.0 ATRIAL FIBRILLATION 2.0-3.0 MECHANICAL VALVES(HIGH RISK) 2.5-3.5 RECURRENT MYOCARDIAL INFARCTION 2.5-3.5 Lab Order: -Arterial Blood Gas; [facility] 05/11/16 06:56 Test: ABG pH (ARTERIAL); Value: 7.383; Range: 7.350-7.450; Units: UNITS; Status: F Test: ABG PARTIAL PRESSURE CO2; Value: 40.6; Range: 35.0-45.0; Units: mmHg; Status: F Test: ABG PARTIAL PRESSURE O2; Value: 96.0; Range: 75.0-100.0; Units: mmHg; Status: F Test: ABG TOTAL CO2; Value: 24.9; Range: 23.0-31.0; Units: MEQ/L; Status: F Test: ABG HCO3; Value: 23.6; Range: 22.0-26.0; Units: MEQ/L; Status: F Test: ABG BASE EXCESS; Value: -1.3; Range: -2.0-2.0; Status: F Test: ABG STANDARD HCO3; Value: 23.4; Range: 22.0-26.0; Units: MEQ/L; Status: F Test: ABG O2 SATURATION; Value: 97.9; Range: 95.0-99.0; Units: %; Status: F Test: ABG DEVICE; Value: NASAL BENNY; Status: F Radiology Order: CT Chest Angio R/O PE Test: CT Chest Angio R/O PE REASON FOR EXAMINATION: Shortness of Breath; ; CLINICAL HISTORY: Dyspnea, exclude PE.; TECHNIQUE: Multiple incremental axial, coronal and oblique images are obtained from the thoracic inle; t to the upper abdomen. Intravenous contrast material was administered as per pulmonary embolism prot; ocol.; COMMENTS:; Moderate cardiomegaly. Absent contrast opacification of the aorta. Enlargement pulmonary arteries sug; gestive of pulmonary hypertension. Contrast refluxed into the suprahepatic IVC suggestive of dysfunct; ion of the right cardiac cavities.; There is excellent opacification of pulmonary arterial system without evidence for pulmonary embolism; . Aneurysmal ascending aorta measuring 4.6 cm.; Subsegmental atelectasis of the lingula.; Basilar atelectatic pulmonary changes of the lower lobes.; There is no evidence of pleural or parenchymal mass. There are no pleural effusions. There is no evid; ence of hilar or mediastinal lymphadenopathy.; Images of the upper abdomen demonstrate no evidence of adrenal mass.; The bony structures are free of lytic or blastic lesions. Multilevel degenerative changes are seen in; volving the visualized thoracolumbar spine.; Scattered calcifications are seen involving the aorta and major branches compatible with atherosclero; sis.; IMPRESSION:; No evidence for pulmonary embolism.; Aneurysmal ascending aorta measuring 4.6 cm.; Cardiomegaly.; Pulmonary hypertension.; Basilar atelectatic pulmonary changes.; Subsegmental atelectasis in the lingula. Please evaluate to exclude a superimposed infection.; Thank you for your kind referral of this patient.; ; Outcome: 07:29 Decision to Hospitalize by Provider. mm11 08:16 Discharge Assessment: Patient awake, alert and oriented x 3. No cognitive and/or hs1 functional deficits noted. Patient verbalized understanding of disposition instructions. patient administered narcotics - no. The following High Risk Discharge criteria are identified: None. Admitted to Med/Surg accompanied by tech, via stretcher, with oxygen, with chart. Condition: stable. CT Study completed. Admission hand-off: Report called to Greg RUDOLPH recieved. Property :Personal belongings accompany Pt. 08:38 Patient left the ED. hs1 Signatures: Dispatcher [employer] EDMS Zulma Dominguez, RN RN kmg1 Jenni Moore, Reg Reg gb Jaiden Castellano, DO mm11 John Fagan jc3 Alexandra Cook RN RN hs1 Angela Landrum, Fruit Culler Unit jl Laney, Jody Gonzalez, Reg Reg hs2 Lena Mcrae RN RN [facility] Steffanie Fuller Corrections: (The following items were deleted from the chart) 05:28 05:27 Respiratory: Pleural rub noted Breath sounds are diminished bilaterally. Breath jc3 sounds with wheezes bilaterally. at expiration jc3 Chart Complete MTDD
[2016-05-13 10:31] VITALS: BP 150/80
[2016-05-13] MEDS ORDERED: predniSONE 20 MG TAB PO ONE (11:00)
--- NOTE | 2016-05-13 13:16 | IPN ---
DATE: 05/12/2016 Patient seen and examined at the bedside. Chart has been reviewed. Patient is adamant about being discharged today and states "I feel well, I want to go home ". "I am going home today". She denies any chest pain, pressure or tightness, nausea, vomiting, abdominal pain, diaphoresis, palpitations, lightheadedness, near syncope. Patient ambulated well without much difficulty. No complaints of shortness of breath. Feels much improved. Temperature 98.1, pulse 94, respiratory rate 20, blood pressure 160/76, and 96% on 1 liter nasal cannula. Generally, awake, alert, oriented to person, pleasantly confused. Lung sounds are diminished. Clear to auscultation. Very faint expiratory wheezing. Heart: S1, S2, sinus rhythm. Abdomen soft, nontender, nondistended. Extremities have no pitting edema. CBC and metabolic panel have been reviewed. Lactic acid remains elevated at 2.7 from admission 4.2. Creatinine remains at 1.05, slightly changed from yesterday of 0.9. Microbiology: Blood cultures are negative. ASSESSMENT AND PLAN: 1. This is an 85-year-old, DO NOT RESUSCITATE, DO NOT INTUBATE, female with history of ascending aortic aneurysm measuring 4.6 cm, chronic cardiomegaly, pulmonary hypertension, chronic obstructive pulmonary disease (COPD) with prior history of smoking, allergic to SULFA, coronary artery disease (CAD), atrial fibrillation with chronic warfarin, hypertension, cardiac stent, skin cancers, CVA, diverticulitis, chronic kidney disease Stage III and peripheral neuropathy who presents to the emergency room with worsening shortness of breath after choking on some food last week with wheezing. The patient is admitted for possible aspiration and for COPD exacerbation improved significantly with nebulizer treatments. The patient is currently on Solu-Medrol 80 IV every 6 hourly, Rocephin and azithromycin. Solu-Medrol will be titrated. Continue with nebulizers. Schedule them as needed. She is unstable for discharge home today. 2. Hypertensive urgency. Initial blood pressure was 181/91. Current blood pressure is 126/50. Continue to monitor. Resume home medications. 3. Lactic acidosis. Continue to monitor. Give fluid hydration. Hold on COURT inhibitors or ARBs until patient's kidney function is improved. 4. Depression. On Prozac. 5. Neuropathy. On Neurontin. MTDD
[2016-05-13 14:00] VITALS: BP 155/93
[2016-05-13] MEDS: WARFARIN SOD 5 MG TAB PO SCH (16:56)
[2016-05-13] MEDS: ACETAMINOPHEN TAB 650MG DOSE (2X325MG) PO PRN (16:59)
--- NOTE | 2016-05-13 20:39 | IPN ---
DATE: 05/13/2016 The patient is seen and examined at the bedside. Chart has been reviewed. This morning, she states that her breathing is improved; however, she has required oxygen. Currently back on 1 liter nasal cannula. Breathing appears to be stable. No chest pain, pressure or tightness, nausea, vomiting. Ambulating well and eating without difficulty. PHYSICAL EXAMINATION: VITAL SIGNS: Temperature 96.8, pulse 80, respiratory rate 22, blood pressure 160/71, 91% on room air, 96% on 1 liter nasal cannula. GENERAL: Awake, alert and oriented to person, pleasantly confused, disoriented to time and place. LUNGS: Diminished with faint expiratory wheezing. HEART: S1, S2. Irregularly irregular. ABDOMEN: Soft, nontender, nondistended. Positive bowel sounds. EXTREMITIES: No cyanosis or clubbing. 1+ pitting edema. SKIN: Warm and dry. Well perfused. [place] in color. LABORATORY DATA: Metabolic panel: Lactic acid 2.7. Microbiology and imaging studies have been reviewed. ASSESSMENT AND PLAN: This is an 85-year-old female with a history of chronic obstructive pulmonary disease (COPD), not on home oxygen, atrial fibrillation on warfarin, hypertension, coronary artery disease, status post stents, skin cancer , CVA, diverticulitis, chronic kidney disease stage III, peripheral neuropathy, presented with worsening shortness of breath after choking on her food, presents with wheezing. The patient was admitted for COPD exacerbation and started on IV Solu-Medrol with significant improvement. Troponins were negative, as was EKG for any acute ischemic injury. CURRENT ISSUES: 1. COPD exacerbation, currently on Solu-Medrol. Due to improvement, the patient will be transitioned to oral prednisone. Continue with antibiotic for now. 2. Hypertension, uncontrolled. Currently on metoprolol 50 mg daily. We will restart the patient's Norvasc and Lisinopril due to elevated systolic pressure of 160s. 3. Neuropathy. Continue gabapentin. 4. Depression. Continue on Prozac. Electrolyte abnormalities. Continue Slow-mag. DISPOSITION: The patient has passed a home safety evaluation. The patient is stable on oral prednisone. May discharge home in the morning. [facility]
[2016-05-13] MEDS: ATORVASTATIN 10 MG TAB PO SCH (20:46)
[2016-05-13 22:00] VITALS: BP 141/71
[2016-05-14] MEDS: IPRATROPIUM 0.5MG/ALBUTEROL 2.5MG INH SOL UD 3ML (DUONEB)(J7620) NEB SCH ×5 (01:11→23:48)
[2016-05-14] MEDS ORDERED: guaiFENesin SYRUP 200 MG/10 ML UDC PO PRN (01:15)
[2016-05-14] MEDS: IPRATROPIUM 0.5MG/ALBUTEROL 2.5MG INH SOL UD 3ML (DUONEB)(J7620) NEB PRN ×4 (03:21→17:36)
[2016-05-14] MEDS: ACETAMINOPHEN TAB 650MG DOSE (2X325MG) PO PRN ×2 (03:24→10:49)
[2016-05-14 06:00] VITALS: BP 154/73
[2016-05-14] MEDS: cefTRIAXone SOD 2 GM in D5W MINI-BAG PLUS 50 ML IV SCH (06:32)
[2016-05-14 06:49] LABS: INR 1.27
[2016-05-14 07:04] LABS: BASO % 0.1 % (0.0-1.0); EOS % 0.1 % (0.0-3.0); LARGE UNSTAINED CELL # 0.2 K/mm3 (0.0-0.4); LARGE UNSTAINED CELL % 1.4 % (0.0-4.0); LYMPH # 0.5 K/mm3 (1.5-4.5); LYMPH % 3.4 % (24.0-44.0); MEAN CORPUSCULAR HEMOGLOBIN 34.3 pg (27.0-33.0); MEAN CORPUSCULAR HGB CONC 33.9 g/dl (32.0-36.5); MEAN CORPUSCULAR VOLUME 101.1 fl (80.0-96.0); MONO # 1.2 K/mm3 (0.0-0.8); MONO % 8.2 % (0.0-5.0); NEUTROPHILS % 86.8 % (36.0-66.0); PLATELET COUNT, AUTOMATED 210 k/mm3 (150-450); RED CELL DISTRIBUTION WIDTH 11.8 % (11.5-14.5)
[2016-05-14 07:06] LABS: CALCIUM LEVEL 9.2 MG/DL (8.8-10.2); CREATININE FOR GFR 1.02 MG/DL (0.55-1.02); GLOMERULAR FILTRATION RATE 54.6 (>32); POTASSIUM SERUM 3.7 MEQ/L (3.5-5.1)
[2016-05-14] MEDS: BUDESONIDE 0.25 MG/2 ML INHALATION SUSPENSION INH SCH ×2 (08:26→19:25)
[2016-05-14] MEDS ORDERED: predniSONE 20 MG TAB PO SCH ×2 (09:00)
[2016-05-14 09:30] VITALS: BP 156/83
[2016-05-14] MEDS: INDAPAMIDE 1.25MG TABLET PO SCH (09:32)
[2016-05-14] MEDS: LACTOBACILLUS ACIDOPHILUS CAP (BACID) PO SCH ×2 (09:36→17:33)
[2016-05-14] MEDS: FLUoxetine 10 MG CAP PO SCH (09:37)
[2016-05-14] MEDS: GABAPENTIN 100 MG CAP PO SCH ×2 (09:37→21:00)
[2016-05-14] MEDS: amLODIPine 10 MG TAB PO SCH (09:38)
[2016-05-14] MEDS: LISINOPRIL 5 MG TAB PO SCH (09:38)
[2016-05-14] MEDS: MAGNESIUM CHLORIDE 64 MG TABCR (SLO MAG) PO SCH (09:39)
[2016-05-14] MEDS: METOPROLOL TART 50 MG TAB PO SCH (09:39)
[2016-05-14] MEDS: AZITHROMYCIN 250 MG TAB PO SCH (09:39)
[2016-05-14 13:55] VITALS: BP 142/88
--- NOTE | 2016-05-14 14:48 | REP ---
CHEST, PORTABLE: AP portable view of the chest is performed and compared to multiple prior exams. Most recent is 05/11/2016. There is cardiomegaly. There is no acute infiltrate or pulmonary edema. There is mild interstitial fibrosis in the lung bases. There is calcification and tortuosity of the thoracic aorta. The mediastinal silhouette is unchanged. IMPRESSION: Cardiomegaly and chronic changes without evidence of acute infiltrate or pulmonary edema. Signed by Marek Neil MD 05/14/2016 04:15 P
[2016-05-14] MEDS ORDERED: FUROSEMIDE 40 MG/4 ML VIAL (J1940) IV ONE ×2 (15:00→17:15)
[2016-05-14 15:16] LABS: OSMOLALITY URINE 492 MOSM/KG (500-800)
[2016-05-14 15:24] LABS: ABG BASE EXCESS -0.8 (-2.0-2.0); ABG PARTIAL PRESSURE CO2 45.2 mmHg (35.0-45.0); ABG PARTIAL PRESSURE O2 72.7 mmHg (75.0-100.0); ABG STANDARD HCO3 23.8 MEQ/L (22.0-26.0); ABG TOTAL CO2 26.3 MEQ/L (23.0-31.0)
[2016-05-14] MEDS: WARFARIN SOD 5 MG TAB PO SCH (17:33)
[2016-05-14] MEDS: methylPREDNISolone INJ 125 MG/2 ML VIAL (J2930) IV SCH ×2 (17:33→23:58)
[2016-05-14] MEDS ORDERED: SPIRONOLACTONE 12.5MG PER 1/2 TABLET PO ONE (18:00)
[2016-05-14] MEDS: ATORVASTATIN 10 MG TAB PO SCH (21:00)
[2016-05-14] MEDS: ONDANSETRON 4MG/2ML VIAL (J2405) IV PRN (23:15)
[2016-05-14 23:55] LABS: ABG BASE EXCESS 0.3 (-2.0-2.0); ABG HCO3 24.6 MEQ/L (22.0-26.0); ABG PARTIAL PRESSURE CO2 38.8 mmHg (35.0-45.0); ABG PARTIAL PRESSURE O2 74.3 mmHg (75.0-100.0); ABG STANDARD HCO3 24.7 MEQ/L (22.0-26.0); ABG TOTAL CO2 25.8 MEQ/L (23.0-31.0)
--- NOTE | 2016-05-15 | REPUSA ---
Clinical history: Congestion. Comparison: None. Findings: The mediastinum and cardiac silhouette are within normal limits. The lungs are clear. No pl eural effusion or pneumothorax is seen. The osseous structures and soft tissues are unremarkable. Impression: No acute disease.
--- NOTE | 2016-05-15 00:15 | IPNPDOC ---
Assessment/Plan Date Seen The patient was seen on 05/15/16. Patient Summary was called to see pt. at 2300 for worsening SOB & anxiety. Ordered ABG, CXR and duoneb tx for pt. When examined the pt was sitting calmly on the side of her bed , did not seem to be labored in breathing and claimed she was no longer SOB. On exam, very faint RLL crackles heard, otherwise CTA. ABG showed ph 7.42 and PCo2 of 38.8 w/ PO2 of 74.3 and HCO3 of 24.6. When re-examined after breathing treatment, pt was resting comfortably in bed, denied SOB. Her CXR showed clear lung ohara, no pleural effusion nor PTX. Will continue to monitor pt. Plan / VTE VTE Prophylaxis Ordered?: Yes Plan / Urinary Catheter Reason for insertion/continuin: Acute obstruct/retention Subjective Review of Systems CC/HPI The patient is a 85-year-old female admitted with a reason for visit of Copd Exacerbation. Objective Vital Signs/I&O Vital Signs Date Time Temp Pulse Resp B/P Pulse Ox O2 Delivery O2 Flow Rate FiO2 05/14/16 17:30 95 Nasal Cannula 05/14/16 15:55 6.0 28 05/14/16 13:55 96.9 95 24 142/88 I&O- Last 24 Hours up to 6 AM 05/15/16 06:00 Intake Total 100 ml Output Total 1625 ml Balance -1525 ml Laboratory Data Labs 24H Laboratory Tests 2 05/14/16 06:15: Anion Gap 10, White Blood Count 15.0H, Red Blood Count 4.19, Hemoglobin 14.4, Hematocrit 42.4, Mean Corpuscular Volume 101.1H, Mean Corpuscular Hemoglobin 34.3H, Mean Corpuscular Hemoglobin Concent 33.9, Red Cell Distribution Width 11.8, Platelet Count 210, Neutrophils (%) (Auto) 86.8H, Lymphocytes (%) (Auto) 3.4L, Monocytes (%) (Auto) 8.2H, Eosinophils (%) (Auto) 0.1, Basophils (%) (Auto ) 0.1, Neutrophils # (Auto) 13.0H, Lymphocytes # (Auto) 0.5L, Monocytes # (Auto ) 1.2H, Eosinophils # (Auto) 0.0, Basophils # (Auto) 0.0, Blood Urea Nitrogen 27H, Creatinine 1.02, Sodium Level 128L, Potassium Level 3.7, Chloride Level 89L , Carbon Dioxide Level 29, Calcium Level 9.2, Glomerular Filtration Rate 54.6, Large Unclassified Cells # 0.2, Large Unclassified Cells % 1.4, Prothromb Time International Ratio 1.27, Prothrombin Time 16.0H 05/14/16 13:53: B-Type Natriuretic Peptide 277H, Creatine Kinase MB 27.8H, Creatine Kinase MB Relative Index 7.85H, Total Creatine Kinase 354#H, Troponin I 0.02 05/14/16 13:54: C-Reactive Protein, Quantitative 0.69H, Erythrocyte Sedimentation Rate 2 05/14/16 14:46: Osmolality 264L 05/14/16 14:49: Urine Amorphous Sediment , Urine Appearance CLEAR, Urine Color YELLOW, Urine pH 5.0, Urine Specific [place] 1.014, Urine Protein NEGATIVE, Urine Glucose (UA) NEGATIVE, Urine Ketones NEGATIVE, Urine Urobilinogen 0.2, Urine Bilirubin NEGATIVE, Urine Leukocyte Esterase NEGATIVE, Urine Bacteria (Auto) NEGATIVE, Urine Blood NEGATIVE, Urine Calcium Carbonate Cryst(Auto) , Urine Calcium Oxalate Cryst (Auto) , Urine Calcium Phosphate [place] (Auto) , Urine Cellular Casts , Urine Cystine Crystals , Urine Granular Casts (Auto) , Urine Hyaline Casts (Auto) 0, Urine Leucine Crystals , Urine Mucus (Auto) , Urine Nitrite NEGATIVE, Urine Oval Fat Bodies (Auto) , Urine RBC (Auto) 0, Urine Random Osmolality 492L, Urine Random Sodium 20, Urine Renal Epithelial Cells , Urine Sperm (Auto) , Urine Squamous Epithelial Cells 0, Urine Transitional Epithelial Cells , Urine Trichomonas (Auto) , Urine Triple Phosphate Cryst (Auto) , Urine Tyrosine Crystals , Urine Uric Acid Crystals (Auto) , Urine WBC (Auto) 0, Urine Waxy Casts (Auto) , Urine Yeast-Like Cells (Auto) 05/14/16 15:16: Arterial Blood pH 7.360, Arterial Blood Partial Pressure CO2 45.2H, Arterial Blood Partial Pressure O2 72.7L, Arterial Blood Total CO2 26.3, Arterial Blood HCO3 25.0, Arterial Blood Base Excess -0.8, Arterial Blood Oxygen Saturation 94.9L, Blood Gas Bicarbonate Standard 23.8 05/14/16 23:28: Arterial Blood pH 7.420, Arterial Blood Partial Pressure CO2 38.8, Arterial Blood Partial Pressure O2 74.3L, Arterial Blood Total CO2 25.8, Arterial Blood HCO3 24.6, Arterial Blood Base Excess 0.3, Arterial Blood Oxygen Saturation 95.6 , Blood Gas Bicarbonate Standard 24.7 CBC/BMP Laboratory Tests 05/14/16 06:15 Calcium Level 9.2, Red Blood Count 4.19, Mean Corpuscular Volume 101.1 H, Mean Corpuscular Hemoglobin 34.3 H, Mean Corpuscular Hemoglobin Concent 33.9, Red Cell Distribution Width 11.8, Neutrophils (%) (Auto) 86.8 H, Lymphocytes (%) ( Auto) 3.4 L, Monocytes (%) (Auto) 8.2 H, Eosinophils (%) (Auto) 0.1, Basophils ( %) (Auto) 0.1, Neutrophils # (Auto) 13.0 H, Lymphocytes # (Auto) 0.5 L, Monocytes # (Auto) 1.2 H, Eosinophils # (Auto) 0.0, Basophils # (Auto) 0.0 Microbiology Microbiology 05/11/16 Blood Culture - Preliminary, Resulted No Growth after 72 hours. All specime... 05/11/16 Blood Culture - Preliminary, Resulted No Growth after 72 hours. All specime... 05/11/16 Blood Culture - Preliminary, Resulted No Growth after 72 hours. All specime... 05/14/16 Urine Culture, Received Pending GME ATTESTATION GME ATTESTATION My preceptor for this patient encounter was physically present in the building during the encounter and was fully available. As needed, all aspects of the patient interview, examination, medical decision making process, and medical care plan development were reviewed and approved by the preceptor. Preceptor is aware and concurs with the plan as stated in the body of this note and will attest to such by his/her cosignature. RACHELLE ZAYASME-1 May 15, 2016 00:15
--- NOTE | 2016-05-15 03:41 | IPN ---
DATE: 05/14/2016 TIME PATIENT SEEN: Around 1:30 p.m. SUBJECTIVE: Patient has been seen and examined at bedside. Patient has significant trouble breathing which has been significantly worse compared to the day prior. Patient was gasping for air during the interview and was not able to provide much information. However, she denies any chest pain. Denies any fever or chills, or any abdominal pain, nausea, vomiting, diarrhea, or constipation. Patient also had an episode of urinary retention with straight cath producing 850 mL of urine. PHYSICAL EXAMINATION: VITAL SIGNS: Temperature 97.1, pulse 101, respirations 20, blood pressure 156/83. Oxygen was satting at 91% on two liters nasal cannula. GENERAL: Patient is an obese, elderly female who was alert, awake, oriented times three, appears to be very tired from breathing and appears to be in mild distress, sitting up in her chair with head elevated around 80 degrees. HEENT: Normocephalic, atraumatic. Extraocular motors are intact. Mucous membranes moist. NECK: Supple. No neck lymphadenopathy. Patient does have jugular venous distention (JVD). CARDIOVASCULAR: Irregularly irregular S1, S2. LUNGS: Reduced lung sounds bilaterally with poor air flow, also increased anterior-posterior (AP) diameter. ABDOMEN: Positive bowel sounds. Soft, nontender, nondistended. No peritoneal signs. No ecchymosis. EXTREMITIES: 3+ pitting edema in bilateral lower extremities extending to the knees bilaterally. SKIN: Warm and dry. NEURO: Cranial nerves II-XII intact. No focal neurological deficit. LABORATORY DATA: Sodium 128, potassium 3.7, chloride 89, bicarbonate 29, BUN 27, creatinine 1.02, GFR 54.6, fasting glucose 135, osmolality was 264, calcium 9.2, total CK 354, CK-MB 27.8, troponin 0.02, CRP was elevated at 0.69 and the BNP was also elevated at 277. Patient also has elevated WBC of 15. RBC 4.19, hemoglobin 14.4, hematocrit 42.4, MCV was 101.1, and platelet count was 210 with 86.8 neutrophils, 3.4% lymphocytes. Patient's ESR was only 2, however. We also had an ABG done for the patient. PH was 7.36, pCO2 45, elevated compared to prior, pO2 was 72.7 reduced compared to prior, and was satting at 95%. Patient's coags shows PT 1.6, INR 1.27, which was subtherapeutic. Urinalysis has been negative. Urine random osmolality was low at 492, and the urine random sodium was 20. Patient's urine culture is currently pending. Blood culture after three days has been negative. IMAGING: Patient's chest x-ray this afternoon shows cardiomegaly and chronic changes without evidence of acute infiltrate or pulmonary edema. ASSESSMENT AND PLAN: 85-year-old female with past medical history of chronic obstructive pulmonary disease (COPD) not on home oxygen, atrial fibrillation on warfarin, hypertension, coronary artery disease status post stent placement, skin cancer, cerebrovascular accident (CVA), diverticulitis, chronic kidney disease stage 3, peripheral neuropathy, who presented with worsening shortness of breath after choking on her food. She presents with wheezing. Patient also was admitted for COPD exacerbation and started on IV Solu-Medrol with significant improvement. Initially troponin was negative and EKG did not show any acute coronary syndrome. Currently issues are worsening shortness of breath likely secondary to fluid overload. One dose of Lasix 40 mg IV has been given. Patient has also been placed on Brand. We will monitor intake and output. Patient did show significantly increased lower extremity edema today associated with patient having trouble breathing. Echocardiogram was also ordered yesterday and result is currently pending. We will followup. Patient does also have elevated brain natriuretic peptide (BNP) with level of 277. 2. COPD exacerbation. Improved with steroids initially and has been worsened. Currently the trouble breathing is likely secondary to fluid overload. However, patient does have likely end-stage COPD, which can contribute to patient's symptoms as well. Patient's prednisone has been switched back to IV Solu-Medrol again and we will continue to monitor patient. 3. Ascending aortic aneurysm measuring 4.6 cm. Patient will likely need outpatient followup, perhaps outpatient referral to vascular surgery. 4. Possible aspiration pneumonia with CT angio of the chest, possible superimposed lingula infiltrate. We will continue patient on antibiotics of ceftriaxone and azithromycin and continue to monitor patient. 5. Hypertensive urgency. It has resolved. Patient's blood pressure is more stable with systolic in the 150s. 6. Elevated BUN. Fecal occult has been ordered, results are pending. We will followup. 7. Atrial fibrillation on warfarin, currently in rapid ventricular response (RVR) with ventricular rate in the 100s; however, it has not been elevated much from her baseline. No medications will be adjusted at this point. We will continue to monitor patient. 8. Coronary artery disease status post stent placement. We will continue home medications. 9. History of hypertension. Continue to monitor and continue home medications. 10. History of skin cancer. Continue to monitor. 11. Recurrent strokes. Continue to monitor and continue to place patient on aspiration precautions. 12. Chronic kidney disease stage 3. However, creatinine does not show any chronic kidney disease. At this point, we will continue to monitor. 13. Peripheral neuropathy. Stable. 14. History of lower extremity edema, which has worsened today. Continue Lozol and possibly give patient as needed Lasix in the future. 15. Subtherapeutic INR. Patient's INR today is 1.2, which is likely secondary to fluid overload. We will continue to monitor. We expect the patient's INR to improve with improvement of fluid overload. 16. Deep vein thrombosis prophylaxis. Heparin 5000 units subcutaneous every 12 hours. DISPOSITION: Patient has shortness of breath likely multifactorial currently more contributed by fluid overload. Also, patient likely has severe COPD and possible congestive heart failure (CHF) exacerbation as well. We will continue antibiotics for possible pneumonia and continue to monitor patient. Patient has been discussed with attending doctor, Dr. Garcia. My preceptor for this patient encounter was Dr. Rosey Garcia. The preceptor was physically present in the building during the encounter and was fully available. As needed, all aspects of the patient interview, examination, medical decision making process, and medical care plan development were reviewed and approved by the preceptor. The preceptor is aware and concurs with the plan as stated in the body of this note and will attest to such by his cosignature.
[2016-05-15] MEDS: IPRATROPIUM 0.5MG/ALBUTEROL 2.5MG INH SOL UD 3ML (DUONEB)(J7620) NEB PRN ×3 (03:46→22:05)
[2016-05-15 06:00] VITALS: BP 147/75
[2016-05-15] MEDS: methylPREDNISolone INJ 125 MG/2 ML VIAL (J2930) IV SCH ×3 (06:00→17:33)
[2016-05-15] MEDS: cefTRIAXone SOD 2 GM in D5W MINI-BAG PLUS 50 ML IV SCH (07:00)
[2016-05-15 07:07] LABS: INR 1.79
[2016-05-15 07:13] LABS: BASO % 0.2 % (0.0-1.0); EOS % 0.1 % (0.0-3.0); LARGE UNSTAINED CELL # 0.1 K/mm3 (0.0-0.4); LARGE UNSTAINED CELL % 0.8 % (0.0-4.0); LYMPH # 0.4 K/mm3 (1.5-4.5); LYMPH % 5.5 % (24.0-44.0); MEAN CORPUSCULAR HEMOGLOBIN 34.1 pg (27.0-33.0); MEAN CORPUSCULAR VOLUME 97.2 fl (80.0-96.0); MONO # 0.3 K/mm3 (0.0-0.8); MONO % 4.2 % (0.0-5.0); NEUTROPHILS # 6.9 K/mm3 (1.8-7.7); NEUTROPHILS % 89.1 % (36.0-66.0); PLATELET COUNT, AUTOMATED 173 k/mm3 (150-450); RED CELL DISTRIBUTION WIDTH 11.7 % (11.5-14.5); WHITE BLOOD COUNT 7.7 K/mm3 (4.0-10.0)
[2016-05-15] MEDS: BUDESONIDE 0.25 MG/2 ML INHALATION SUSPENSION INH SCH ×2 (07:14→19:36)
[2016-05-15] MEDS: IPRATROPIUM 0.5MG/ALBUTEROL 2.5MG INH SOL UD 3ML (DUONEB)(J7620) NEB SCH ×3 (07:14→19:36)
[2016-05-15 07:32] LABS: CALCIUM LEVEL 8.6 MG/DL (8.8-10.2); CREATININE FOR GFR 0.98 MG/DL (0.55-1.02); GLOMERULAR FILTRATION RATE 57.2 (>32); POTASSIUM SERUM 3.2 MEQ/L (3.5-5.1)
[2016-05-15] MEDS: POTASSIUM CHLORIDE 10 MEQ SR TABLET PO SCH ×2 (08:48→17:33)
[2016-05-15] MEDS: FLUoxetine 10 MG CAP PO SCH (08:48)
[2016-05-15] MEDS: amLODIPine 10 MG TAB PO SCH (08:48)
[2016-05-15] MEDS: LACTOBACILLUS ACIDOPHILUS CAP (BACID) PO SCH ×2 (08:48→17:33)
[2016-05-15] MEDS: GABAPENTIN 100 MG CAP PO SCH ×2 (08:49→21:28)
[2016-05-15] MEDS: METOPROLOL TART 50 MG TAB PO SCH (08:49)
[2016-05-15] MEDS: MAGNESIUM CHLORIDE 64 MG TABCR (SLO MAG) PO SCH (08:49)
[2016-05-15] MEDS: LISINOPRIL 5 MG TAB PO SCH (08:49)
[2016-05-15] MEDS: AZITHROMYCIN 250 MG TAB PO SCH (08:49)
[2016-05-15] MEDS: INDAPAMIDE 1.25MG TABLET PO SCH (08:50)
[2016-05-15] MEDS: ADVAIR DISKUS 250/50 INH PWD INH SCH ×2 (09:00→19:36)
[2016-05-15] MEDS ORDERED: ENOXAPARIN 40 MG/0.4 ML SYRINGE (J1650) SC SCH (09:00)
[2016-05-15] MEDS ORDERED: FUROSEMIDE 40 MG/4 ML VIAL (J1940) IV ONE (11:00)
[2016-05-15] MEDS ORDERED: SALIVA SUBSTITUTE(MOUTHKOTE) BTL MT PRN (12:30)
--- NOTE | 2016-05-15 13:11 | IPN ---
DATE: 05/15/2016 Time patient was seen was this morning around 8:30. The patient was seen and examined at the bedside. The patient has been breathing much better today. However, the patient stated that she would like to go home and does not want to stay in the hospital. The patient's daughters were at the bedside, however, has convinced the patient to stay. According to the patient's daughter, they have spoken to hospice outpatient. Due to that, the patient has regular DuoNeb treatment and the patient would like hospice to give the treatment. When asked if the patient's daughter knows what hospice means, she stated that her father also and they used hospice, therefore, she does know what it means. Also, stated that the patient does seen cardiology, Dr. Gagnon, outpatient. Otherwise, the patient denies any fever, chills, chest pain, abdominal pain, nausea, vomiting, diarrhea, constipation, or any problem with urination. The patient is currently on a Brand. The patient denies any other new complaints. PHYSICAL EXAMINATION: VITAL SIGNS: Temperature 96.4, pulse 110, respirations 19, blood pressure 147/75, oxygen saturation 94% on 2 liters nasal cannula. GENERAL: The patient is obese, elderly female who was alert, awake, and oriented times three. Appears to be in mild distress, sitting up comfortably in the chair with the head elevated at around 70 degrees. HEENT: Normocephalic, atraumatic. Extraocular motors intact. Mucosa moist. NECK: Supple. No jugular venous distention (JVD). HEART: Irregularly irregular. 2/6 systolic heart murmur. LUNGS: Poor air entrance with end expiratory wheeze, increased diameter. ABDOMEN: Positive bowel sounds. Soft, nontender. There are no peritoneal signs. No ecchymoses. EXTREMITIES: 2+ pitting edema below the knees bilaterally. No clubbing or cyanosis. SKIN: Warm and dry. NEUROLOGIC: Cranial nerves II through XII intact. No focal neurological deficits. LABORATORY DATA: WBC 7.7, hemoglobin 13.7, hematocrit 39.2 with a platelet count of 173 and MCV of 97.2. Sodium was reduced to 124, potassium 3.2, chloride 82, bicarbonate 31, BUN 26, creatinine 0.98, and GFR was 57.2. Fasting glucose 153. Osmolality 264. Calcium 8.6, C-reactive protein was elevated today at 2.2. BNP yesterday was 277. TSH today 0.686. ABG last night was pH 7.4, PCO2 38, PO2 74.3, and oxygen saturation was 95%. Base excess was 0.3. PT 20.9, INR was 1.79. Urinalysis was negative yesterday and urine random osmolality last night was 492. Random sodium was 20. Urine culture shows no growth. The patient had a portable chest x-ray yesterday around midnight that shows no acute disease. The patient's echocardiogram is currently pending. ASSESSMENT AND PLAN: 85-year-old female with a past medical history of chronic obstructive pulmonary disease (COPD), not on home oxygen, atrial fibrillation on warfarin, hypertension, coronary artery disease, status post stent placement, skin cancer, CVA, diverticulitis, chronic kidney disease, peripheral neuropathy, who presented with: 1. Worsening shortness of breath after choking on her food, also wheezing. Admitted for chronic obstructive pulmonary disease (COPD) exacerbation. Continue IV Solu-Medrol. The patient was also found to be fluid overloaded and received one dose of Lasix 40 mg intravenously. Did have a good amount of output around 2675 mL last night. The patient's breathing has improved. In addition, the patient was found that she is not having a long-acting COPD medication and therefore Advair has been added. We will continue to monitor the patient. Continue DuoNeb. Continue DuoNeb treatment and we will continue to followup with echocardiogram. 2. Possible fluid overload. Lasix has been given. The patient has been placed on fluid restriction 1.5 liters per 24 hours. Continue to monitor input and output. The patient has been given an additional Lasix 40 mg intravenously today. We will monitor input and output again. We will monitor the patient's lower extremity swelling as well. 3. COPD exacerbation, improved with steroids initially, worsening due to fluid overload. However, the patient is not on a long-acting COPD medication. Therefore, the patient has been placed on Advair. We will continue to monitor. 4. Possible pneumonia. We will continue Rocephin and azithromycin and continue to monitor the patient. Continue Acapella. 5. Ascending aortic aneurysm measuring 4.6. We will leave decision to primary care provider regarding followup. 6. Hypertensive urgency, resolved. We will continue to monitor. 7. Atrial fibrillation with rapid ventricular response. Currently on warfarin. Likely secondary to DuoNeb treatment. We will continue to monitor. The patient's blood pressure is stable. 8. Coronary artery disease, status post stent placement. We will continue to monitor. 9. Subtherapeutic INR. On warfarin. I have started the patient on Lovenox daily. We will discontinue the Lovenox once the patient's INR is therapeutic. 10. History of hypertension. Continue home medications. 11. History of skin cancer. Continue to monitor. 12. Chronic kidney disease. The patient's GFR is close to 60. We will continue to monitor. 13. Peripheral neuropathy. Stable. Continue to monitor. 14. Lower extremity edema. Continue Lozol. The patient also does seem to be fluid overloaded. Started the patient on Lasix and fluid restriction. 15. Deep vein thrombosis (DVT) prophylaxis. On warfarin. Also Lovenox. We will discontinue Lovenox once the patient's INR is therapeutic. DISPOSITION: The patient's shortness of breath is likely multifactorial. According to the patient's daughter, they are considering hospice outpatient. We will continue to treat the patient and continue IV Lasix and antibiotic. In addition, we have started the patient on long-acting COPD medication. The patient has been discussed with attending doctor, Dr. Garcia. My preceptor for this patient encounter was Dr. Garcia. The preceptor was physically present in the building during the encounter and was fully available. As needed, all aspects of the patient interview, examination, medical decision making process, and medical care plan development were reviewed and approved by the preceptor. The preceptor is aware and concurs with the plan as stated in the body of this note and will attest to such by his/her cosignature.
--- NOTE | 2016-05-15 13:41 | ECGEPIP ---
Stationary ECG Study [facility] Test Date: 2016-05-14 Pat Name: SANDRA DUNLAP Department: Room: M8552-75 Gender: F Stain Wiper: : 1930 Requested By: MICHAEL KAISER Order Number: [id number] Reading MD: May Moody Measurements Intervals [place] Rate: 100 P: IA: 0 QRS: 105 QRSD: 81 T: -15 QT: 357 QTc: 462 Interpretive Statements ATRIAL FIBRILLATION WITH RAPID VENTRICULAR RESPONSE WITH ABERRANT CONDUCTION OR VENTRICULAR PREMATURE COMPLEXES RIGHT AXIS DEVIATIOn PRWP RATE FASTER RIGHT AXIS NEW ST ABN MORE MARKED C/W 05/11/16 ECTOPY NEW Electronically Signed On 05-15-2016 13:40:27 EST by May Moody
[2016-05-15 14:00] VITALS: BP 152/83
--- NOTE | 2016-05-15 16:59 | ECHO ---
INPATIENT ECHOCARDIOGRAPHIC REPORT DATE OF PROCEDURE: May 13, 2016 AGE: 85. GENDER: Female. HEIGHT: Is 63 inches. WEIGHT: 151 pounds. BODY SURFACE AREA: 1.72 meters squared. INPATIENT: [address] [place] [address], room 5131 REFERRING PHYSICIAN: Dr. Kamilla Brooks INDICATION: Dyspnea. MEASUREMENTS: 2-D measurements: RV - 4.3 cm LV - 3.8 cm Septum 1.2 cm Posterior wall 1.2 cm Aortic root 3.1 cm LA - 4.2 cm LVEF 65% Doppler measurements: AV - 1.0 meters per second LVOT - 0.7 meters per second LVOT diameter 1.8 cm MV-E 130 Early mitral deceleration time 148 milliseconds E prime 6.1, E/E prime ratio 20.5 RVSP 63 - 68 mmHg IVC - 2.7 cm COMMENTS: Underlying atrial fibrillation with controlled ventricular response. No intraventricular conduction disturbance. Somewhat technically challenging but diagnostically useful information was still obtained. Mild to moderately dilated left atrium but normal left ventricular size. Mildly dilated right ventricle but moderately dilated right atrium and IVC. LV wall thickness was upper limits of normal to mildly hypertrophied symmetrically. On real-time imaging from the parasternal and apical projections wall motion was symmetrical and hyperkinetic. Mildly thickened mitral annulus with slightly thickened leaflet edges but adequate leaflet excursion with no apparent posterior systolic buckling. Three equal size aortic cusps with mildly thickened cusp edges but adequate cusp separation. Normal aortic root size. No apparent intracardiac mass or pericardial effusion. Color flow Doppler study taken from the parasternal and apical projections showed mild aortic, moderate mitral and severe tricuspid insufficiency. Guided continuous wave Doppler of her aortic valve showed a normal peak systolic velocity against LV outflow tract obstruction. Pulsed and continuous wave Doppler of her LV inflow tract taken from the apical four-chamber projection showed normal diastolic filling velocities against mitral stenosis. There was only early diastolic / passive filling pattern as we would expect with atrial fibrillation. Using pulsed and tissue Doppler of her mitral annulus her estimated mean left atrial pressure was significantly elevated. We attempted to visualize her pulmonic valve but this proved to be technically difficult. Guided continuous wave Doppler of her tricuspid valve allowed our estimation of her right ventricular systolic pressure (severely increased). Her inferior vena cava was moderately dilated with fair respiratory collapse suggestive of only mildly elevated central venous pressure at this time. CONCLUSIONS: Borderline concentric left ventricle hypertrophy with hyperkinetic wall motion. Mild to moderately dilated left atrium with Doppler evidence of an elevated mean left atrial pressure. Mildly dilated right ventricle with Doppler evidence of severe pulmonary hypertension. Mild to moderately dilated right atrium and inferior vena cava with adequate respiratory collapse suggestive of no more than a mildly elevated central venous pressure at this time. Aortic valvular sclerosis without stenosis and only mild insufficiency. Degenerative changes of her mitral valvular apparatus without inflow tract obstruction but moderate eccentric insufficiency. Comparing the above test findings with those of May 23, 2011 left atrial size has increased as has estimated mean left atrial pressure. Right heart chamber sizes have also increased along with her worsening of pulmonary arterial pressure. Further degenerative changes of her mitral and aortic valvular apparatus with increase in degree of mitral insufficiency and aortic insufficiency.
[2016-05-15] MEDS: WARFARIN SOD 5 MG TAB PO SCH (17:33)
[2016-05-15 19:37] VITALS: O2SAT 96
[2016-05-15] MEDS: ATORVASTATIN 10 MG TAB PO SCH (21:28)
[2016-05-15 22:00] VITALS: BP 138/77
[2016-05-15 22:06] VITALS: O2SAT 97
[2016-05-15 22:40] VITALS: BP 142/86
[2016-05-15 23:23] LABS: ABG BASE EXCESS 6.4 (-2.0-2.0); ABG HCO3 30.4 MEQ/L (22.0-26.0); ABG PARTIAL PRESSURE CO2 41.4 mmHg (35.0-45.0); ABG PARTIAL PRESSURE O2 100.6 mmHg (75.0-100.0); ABG STANDARD HCO3 30.3 MEQ/L (22.0-26.0); ABG TOTAL CO2 31.7 MEQ/L (23.0-31.0); ABG pH (ARTERIAL) 7.484 UNITS (7.350-7.450)
--- NOTE | 2016-05-15 23:40 | REPUSA ---
HISTORY: Chest pain TECHNIQUE : Frontal and lateral radiograph views of the chest were obtained. COMPARISON : None FINDINGS: Stable mild cardiomegaly. Mediastinum and pulmonary vascularity are within normal limits. No acute infiltrate, effusion, or pneumothorax. Lower lobe granulomatous disease. Osseous structures demonstrate no acute displaced fracture, destructive lesion, or compression deform ity. Soft tissues demonstrate no suspicious focal abnormalities. No evidence of gross subdiaphragmatic natasha e air. Lines and devices : None IMPRESSION: No acute infiltrate. Stable remaining findings as described. Thank you for the kind referral of this patient.
[2016-05-16] MEDS: IPRATROPIUM 0.5MG/ALBUTEROL 2.5MG INH SOL UD 3ML (DUONEB)(J7620) NEB SCH ×4 (02:00→19:58)
[2016-05-16 06:00] VITALS: BP 146/72
[2016-05-16] MEDS: methylPREDNISolone INJ 125 MG/2 ML VIAL (J2930) IV SCH ×3 (06:25→18:11)
[2016-05-16] MEDS: cefTRIAXone SOD 2 GM in D5W MINI-BAG PLUS 50 ML IV SCH (06:25)
[2016-05-16 07:11] LABS: BASO % 0.1 % (0.0-1.0); EOS % 0.1 % (0.0-3.0); LARGE UNSTAINED CELL # 0.1 K/mm3 (0.0-0.4); LARGE UNSTAINED CELL % 1.2 % (0.0-4.0); LYMPH # 0.4 K/mm3 (1.5-4.5); LYMPH % 4.3 % (24.0-44.0); MEAN CORPUSCULAR HGB CONC 34.9 g/dl (32.0-36.5); MEAN CORPUSCULAR VOLUME 97.5 fl (80.0-96.0); MONO # 0.6 K/mm3 (0.0-0.8); MONO % 5.6 % (0.0-5.0); NEUTROPHILS # 8.7 K/mm3 (1.8-7.7); NEUTROPHILS % 88.6 % (36.0-66.0); PLATELET COUNT, AUTOMATED 177 k/mm3 (150-450); RED CELL DISTRIBUTION WIDTH 11.6 % (11.5-14.5); WHITE BLOOD COUNT 9.8 K/mm3 (4.0-10.0)
[2016-05-16 07:20] LABS: INR 3.07
[2016-05-16 07:32] LABS: ANION GAP 11 MEQ/L (8-16); BLOOD UREA NITROGEN 29 MG/DL (7-18); CALCIUM LEVEL 8.9 MG/DL (8.8-10.2); CARBON DIOXIDE LEVEL 31 MEQ/L (21-32); CHLORIDE LEVEL 84 MEQ/L (98-107); CREATININE FOR GFR 0.89 MG/DL (0.55-1.02); GLOMERULAR FILTRATION RATE > 60.0 (>32); GLUCOSE, FASTING 161 MG/DL (83-110); POTASSIUM SERUM 3.3 MEQ/L (3.5-5.1); SODIUM LEVEL 126 MEQ/L (136-145)
[2016-05-16] MEDS ORDERED: POTASSIUM CHLORIDE 10 MEQ SR TABLET PO ONE (07:45)
[2016-05-16] MEDS: BUDESONIDE 0.25 MG/2 ML INHALATION SUSPENSION INH SCH ×2 (08:23→19:58)
[2016-05-16] MEDS: ADVAIR DISKUS 250/50 INH PWD INH SCH ×2 (08:24→19:58)
[2016-05-16] MEDS: SPIRONOLACTONE 12.5MG PER 1/2 TABLET PO SCH (08:30)
[2016-05-16] MEDS: INDAPAMIDE 1.25MG TABLET PO SCH (08:30)
[2016-05-16] MEDS: GABAPENTIN 100 MG CAP PO SCH ×2 (08:31→20:32)
[2016-05-16] MEDS: FLUoxetine 10 MG CAP PO SCH (08:31)
[2016-05-16] MEDS: METOPROLOL TART 50 MG TAB PO SCH (08:31)
[2016-05-16] MEDS: LACTOBACILLUS ACIDOPHILUS CAP (BACID) PO SCH ×2 (08:31→17:57)
[2016-05-16] MEDS: LISINOPRIL 5 MG TAB PO SCH (08:31)
[2016-05-16] MEDS: amLODIPine 10 MG TAB PO SCH (08:32)
[2016-05-16] MEDS: AZITHROMYCIN 250 MG TAB PO SCH (08:32)
[2016-05-16] MEDS: MAGNESIUM CHLORIDE 64 MG TABCR (SLO MAG) PO SCH (08:32)
[2016-05-16] MEDS: POTASSIUM CHLORIDE 10 MEQ SR TABLET PO SCH ×2 (10:24→17:57)
[2016-05-16] MEDS: ONDANSETRON 4MG/2ML VIAL (J2405) IV PRN (12:07)
[2016-05-16] MEDS: BISACODYL 5 MG TAB PO PRN (12:08)
[2016-05-16] MEDS: FUROSEMIDE 20 MG TAB PO SCH (12:08)
--- NOTE | 2016-05-16 13:01 | IPN ---
DATE: 05/16/2016 Time: 9:00 a.m. The is being seen and examined at the bedside. No acute events overnight. The patient did have a bout of trouble breathing last night, however, ABG shows improvement. The patient has been tapered down to 2 liters of nasal cannula, which is patient's baseline at home. In addition, when patient was interviewed, she denies any increased trouble breathing. Admits that she is feeling better, however, upon further questioning, she was only alert, awake and oriented times one to herself. She does not know the year and believes she is in a doctor's office, otherwise the patient denies any fever or chills, any chest pain, any abdominal pain, nausea, vomiting, diarrhea or constipation or any problem with urination. Denies any other current complaints. PHYSICAL EXAMINATION: VITAL SIGNS: Temperature 96.8 with a pulse of 94, respirations 22, blood pressure 146//72, oxygen was saturating at 96% on 2 liters of nasal cannula. GENERAL: The patient is obese, elderly female who was alert, awake, oriented times one to herself only. Appears to be in mild distress, sitting up comfortably in her chair. HEENT: Normocephalic, atraumatic. Extraocular motors intact. Mucous moist. Neck supple. No NECK: Supple. No neck lymphadenopathy. CARDIOVASCULAR: Irregularly irregular. S1, S2. Difficult to assess due to increased AP diameter. LUNGS: Slight wheezing bilaterally. Improved air entrance bilaterally. ABDOMEN: Positive bowel sounds, soft, nontender, nondistended. No peritoneal signs. No ecchymosis. EXTREMITIES: The patient does still have 2+ pitting edema in bilateral lower extremity, however, it has been improved to day prior. SKIN: Warm and dry. NEUROLOGICAL: Cranial nerves II through XII intact. No focal neurological deficits. LABS: ABG last night shows pH of 7.48, pCO2 41.4, with pO2 of 100.6, and oxygen saturation of 98.3%. Base access was 6.4. WBC 9.8, hemoglobin 14, hematocrit 40.4, with a platelet count of 177 and MCV of 97.5. Sodium 126, improved compared to day before, which was 124. Potassium 3.3. Chloride was 84, bicarbonate 31, BUN 29, creatinine was 0.89. GFR was greater than 60. Fasting glucose 161. Coag shows NR of 3. Urine culture shows no growth after two days. Lab culture shows no growth after five days. No new imaging. ASSESSMENT AND PLAN: 85-year-old female with past medical history of chronic obstructive pulmonary disease (COPD), 2 liters of oxygen at night, atrial fibrillation on warfarin, hypertension, coronary artery disease, status post stent placement, skin cancer, cerebrovascular accident (CVA), diverticulitis, chronic kidney disease, peripheral neuropathy presented with: 1. Worsening shortness of breath after choking on her food, also wheezing admitted for COPD exacerbation. Continue IV Solu-Medrol. The patient also has possible pneumonia. The patient was also found to be fluid overloaded and received two doses of Lasix 40 mg IV. Breathing has improved today. Will continue to monitor. We have also started the patient on Advair yesterday. The patient's breathing has improved. ABG did show improvement in pCO2 and pO2. Will continue to monitor and continue DuoNebs. The patient's IV steroids has reduced from 60 every 6 hours to 60 twice a day. We are planning on switching patient to by mouth steroid tomorrow. 2. Possible fluid overload. Status post Lasix. Continue to monitor ins and outs. 3. COPD exacerbation. Continue steroid. Will taper steroid and switch the patient to by mouth tomorrow, and the patient has also been placed on Advair. Continue to monitor. 4. Possible pneumonia. Continue Rocephin and Zithromax. Continue to monitor. Continue Acapella. 5. Ascending aortic aneurysm measuring 4.6 cm. Will leave decision to primary regarding followup. 6. Hypertensive urgency, resolved. 7. Atrial fibrillation with rapid ventricular response (RVR). Currently patient's vital signs are stable. Continue warfarin. Today the patient is supratherapeutic INR. Will hold warfarin just for tonight and continue to monitor. 8. Coronary artery disease, status post stent placement. Continue to monitor. 9. Supratherapeutic INR. Hold warfarin for tonight. 10. History of hypertension. Continue to hold medication. 11. History of skin cancer. Continue to monitor. 12. History of chronic kidney disease, which does not appear to be true. The patient's GFR is greater than 60. Continue to monitor. 13. Peripheral neuropathy. Stable. Continue to monitor. 14. Lower extremity edema. Continue Lozol. Will continue on a small dose of Lasix today. 15. Deep venous thrombosis (DVT) prophylaxis. On warfarin. Lovenox has been stopped due to INR above 2. DISPOSITION: The patient's shortness of breath has improved significantly today after diuretics. The patient's daughter also would also like to hear from Hospice. Will continue Lasix and will switch patient to by mouth steroid tomorrow. The patient has been discussed with attending doctor, Dr. Garcia. My preceptor for this patient encounter was Dr. Garcia. The preceptor was physically present in the building during the encounter and was fully available. As needed, all aspects of the patient interview, examination, medical decision making process, and medical care plan development were reviewed and approved by the preceptor. The preceptor is aware and concurs with the plan as stated in the body of this note and will attest to such by his/her cosignature.
[2016-05-16 14:00] VITALS: BP 161/87
[2016-05-16] MEDS: WARFARIN SOD 5 MG TAB PO SCH (17:00)
[2016-05-16 19:58] VITALS: O2SAT 96
[2016-05-16] MEDS: ATORVASTATIN 10 MG TAB PO SCH (20:32)
[2016-05-16 22:00] VITALS: BP 130/65
[2016-05-17] MEDS: IPRATROPIUM 0.5MG/ALBUTEROL 2.5MG INH SOL UD 3ML (DUONEB)(J7620) NEB SCH ×4 (03:50→19:58)
[2016-05-17] MEDS: methylPREDNISolone INJ 125 MG/2 ML VIAL (J2930) IV SCH ×2 (06:05→18:01)
[2016-05-17] MEDS: cefTRIAXone SOD 2 GM in D5W MINI-BAG PLUS 50 ML IV SCH (06:05)
[2016-05-17 06:18] LABS: BASO % 0.1 % (0.0-1.0); EOS % 0.1 % (0.0-3.0); LARGE UNSTAINED CELL # 0.1 K/mm3 (0.0-0.4); LARGE UNSTAINED CELL % 0.8 % (0.0-4.0); LYMPH # 0.3 K/mm3 (1.5-4.5); LYMPH % 2.2 % (24.0-44.0); MEAN CORPUSCULAR HEMOGLOBIN 33.8 pg (27.0-33.0); MEAN CORPUSCULAR HGB CONC 34.6 g/dl (32.0-36.5); MEAN CORPUSCULAR VOLUME 97.7 fl (80.0-96.0); MONO % 6.2 % (0.0-5.0); NEUTROPHILS # 14.1 K/mm3 (1.8-7.7); NEUTROPHILS % 90.6 % (36.0-66.0); PLATELET COUNT, AUTOMATED 187 k/mm3 (150-450); RED CELL DISTRIBUTION WIDTH 11.7 % (11.5-14.5); WHITE BLOOD COUNT 15.5 K/mm3 (4.0-10.0)
[2016-05-17 06:34] LABS: ALBUMIN 3.6 GM/DL (3.2-5.2); ALBUMIN/GLOBULIN RATIO 1.33 (1.00-1.93); BILIRUBIN,TOTAL 0.8 MG/DL (0.2-1.0); CALCIUM LEVEL 8.8 MG/DL (8.8-10.2); CREATININE FOR GFR 0.99 MG/DL (0.55-1.02); GLOMERULAR FILTRATION RATE 56.5 (>32); POTASSIUM SERUM 3.3 MEQ/L (3.5-5.1); TOTAL PROTEIN 6.3 GM/DL (6.4-8.2)
[2016-05-17 06:40] LABS: INR 5.35
[2016-05-17] MEDS ORDERED: PHYTONADIONE 1.25 MG 1/4 TAB PO ONE (08:00)
[2016-05-17] MEDS: BUDESONIDE 0.25 MG/2 ML INHALATION SUSPENSION INH SCH ×2 (08:50→19:57)
[2016-05-17] MEDS: ADVAIR DISKUS 250/50 INH PWD INH SCH ×2 (08:50→19:57)
[2016-05-17] MEDS: amLODIPine 10 MG TAB PO SCH (08:56)
[2016-05-17] MEDS: SPIRONOLACTONE 12.5MG PER 1/2 TABLET PO SCH (08:56)
[2016-05-17] MEDS: LISINOPRIL 5 MG TAB PO SCH (08:56)
[2016-05-17] MEDS: POTASSIUM CHLORIDE 10 MEQ SR TABLET PO SCH (08:57)
[2016-05-17] MEDS: MAGNESIUM CHLORIDE 64 MG TABCR (SLO MAG) PO SCH (08:57)
[2016-05-17] MEDS: INDAPAMIDE 1.25MG TABLET PO SCH ×2 (08:57→09:00)
[2016-05-17] MEDS: LACTOBACILLUS ACIDOPHILUS CAP (BACID) PO SCH ×2 (08:58→18:00)
[2016-05-17] MEDS: AZITHROMYCIN 250 MG TAB PO SCH (08:58)
[2016-05-17] MEDS: FLUoxetine 10 MG CAP PO SCH (08:58)
[2016-05-17] MEDS: GABAPENTIN 100 MG CAP PO SCH ×2 (08:58→20:20)
[2016-05-17] MEDS: METOPROLOL TART 50 MG TAB PO SCH ×2 (08:58→09:00)
[2016-05-17] MEDS: FUROSEMIDE 20 MG TAB PO SCH (08:59)
[2016-05-17] MEDS ORDERED: POTASSIUM CHLORIDE 10% LIQ 20 MEQ/15 ML UDC PO SCH (09:00)
[2016-05-17 09:01] LABS: ERYTHROCYTE SEDIMENTATION RATE 2 mm/hr (0-42)
[2016-05-17] MEDS ORDERED: POTASSIUM CHLORIDE 10% LIQ 20 MEQ/15 ML UDC PO ONE (10:45)
--- NOTE | 2016-05-17 13:58 | IPN ---
DATE: 05/17/2016 Time patient was seen was this morning at 10:00 a.m. The patient was seen and examined at the bedside. No acute events overnight. The patient continues to have some trouble breathing; however, she denies any fever, chills, chest pain, abdominal pain, nausea, vomiting, diarrhea, or constipation. Per patient's daughter, she has not been eating that much in the past few days, therefore she has been bringing in food from home. I have recommended for her not to do it. The patient's daughter would like the patient to be on Ensure due to the patient has not been eating as much here. In addition, we have agreed that the patient should not be on prednisone again due to the potential to cause the patient to become confused and possibly cause fluid retention as well. We will try a different steroid other than prednisone for this patient. In addition, the patient's daughter's story seems to contradict the patient, and the daughter stated that the patient has not been on oxygen at home and stated that she has not been on oxygen for about one year. The patient was told that she should be on oxygen before that; however, the patient never used this. Therefore, the oxygen was taken away from her. Daughter stated that the patient gets confused at night and is better in the morning. PHYSICAL EXAMINATION: VITAL SIGNS: Temperature 97.4, pulse 103, respirations 18, blood pressure 130/65, oxygen saturation 93% on 2 liters nasal cannula. GENERAL: The patient is thin-looking, elderly female who was alert, awake, and oriented to herself only. Appears to be in mild distress, sitting up comfortably in her chair eating cereal. HEENT: Normocephalic, atraumatic. Extraocular motors intact. Mucosa moist. NECK: Supple. No neck lymphadenopathy. CARDIOVASCULAR: Irregularly irregular. S1, S2. LUNGS: Poor air entrance and expiratory wheezing; however, it has improved compared to the day prior. ABDOMEN: Positive bowel sounds. Soft, nontender, nondistended. No peritoneal signs. No ecchymoses. EXTREMITIES: 1+ pitting edema in bilateral lower extremities and extending to the knees. SKIN: Warm and dry. NEUROLOGIC: Cranial nerves II through XII intact. No focal neurological deficits. LABORATORY DATA: WBC 15.5, hemoglobin 14.3, hematocrit 41.3 with a platelet count of 187, MCV 97.9. Sodium 130, potassium 3.3, chloride 86, bicarbonate 37, BUN 33, creatinine 0.99 with GFR of 56.5 and fasting glucose of 192. C-reactive protein today is 1.24, improved from the day prior, 2.22. Total protein 6.3, albumin 3.6. The patient's TSH was 0.68. The patient's coag, however, shows PT 48.8, INR was elevated at 5.35. The patient's urine culture shows no growth. ASSESSMENT AND PLAN: 85-year-old female with a past medical history of chronic obstructive pulmonary disease (COPD), not on home oxygen, per patient's daughter. The patient stated that she is on 2 liters at night; however, according to the daughter, has not had any for about one year, atrial fibrillation on warfarin, hypertension, coronary artery disease, status post stent placement, skin cancer, CVA, diverticulitis, peripheral neuropathy, who presented with: 1. Shortness of breath after choking on her food, also wheezing. Admitted for chronic obstructive pulmonary disease (COPD) exacerbation and also pneumonia, possible aspiration; however, chest x-ray only shows possible old lingular pneumonia. The patient has been started on Rocephin and also azithromycin. The patient's trouble breathing initially was better; however, was worsened after found to be fluid overloaded. She has received a dose of Lasix. Breathing has improved again. In addition, we will continue the patient on Advair, [id number] has been started in the hospital as well. ABG also shows improvement. The patient's swelling in the lower extremities has improved as well. In addition, the patient's fluid overload was possibly secondary to a side effect of prednisone. As per patient's daughter, it has happened in the past. The patient also has confusion and hallucinations from prednisone in the past. Therefore, prednisone should not be given again in the future. We will continue the patient on IV steroids and we will likely switch the patient to dexamethasone tomorrow if the patient's symptoms continue to improve. 2. Possible fluid overload. The patient's daughter told me that she does have a history of heart failure. Echocardiogram has been ordered. It shows that the patient has left ventricular ejection fraction of 65%. Borderline concentric left ventricular hypertrophy with hyperkinetic wall motion. Also, mild to moderate dilated left atrium with Doppler evidence of elevated left atrial pressure. Mildly dilated right ventricle with Doppler evidence of severe pulmonary hypertension and mild to moderately dilated right atrium and inferior vena cava with adequate respiratory collapse, suggestive of no more than mildly elevated central venous pressure. At this time, the patient also has aortic valve sclerosis without stenosis, only mild insufficiency and degenerative changes of her mitral valve apparatus without in flow tract obstruction, but there were moderate eccentric insufficiency. In addition, the patient's Brand has been discontinued today. We will continue to monitor input and output; however. 3. Urinary retention. Status post Brand insertion. We will remove it today. 4. COPD exacerbation. The patient will be continued on steroids, Solu-Medrol 60 mg twice a day. We will taper the steroid if the patient continues to improve tomorrow. The patient has also been started on Advair. Also, according to the daughter, she was not on oxygen at home, contrary of what the patient told us. Per daughter, she has not been on oxygen for about one year. It was taken off because the patient refuses to use oxygen at home. We will continue to monitor. 5. Possible pneumonia, possible aspiration. Chest x-ray does not show any acute worsening from a few days ago, therefore, we will only keep the patient on Rocephin and azithromycin for now and continue to monitor. Continue Acapella. 6. Ascending aortic aneurysm measuring 4.6. We will leave decision to primary care provider regarding followup. The patient's daughter has been updated on the condition. 7. Hypertensive urgency, resolved. 8. Atrial fibrillation with rapid ventricular response, stable. Continue to monitor. 9. History of hypertension. The patient has been placed on metoprolol, Lisinopril, and spironolactone. The patient's Norvasc has been discontinued today due to blood pressure is better controlled. 10. Hypokalemia. Patient receives regular potassium supplement daily. We will keep the patient on 40 mEq potassium from now on and we will give more supplement if needed. At this point, the etiology for hypokalemia is unclear. 11. Lactic acidosis, initially lactic acid was around 4 and it was trending down. According to the patient's daughter, she does have severe peripheral vascular disease, which could have contributed to her lactic acidosis. We will continue to monitor. Currently, she is asymptomatic. 12. Coronary artery disease, status post stent placement. Continue to monitor. 13. Supratherapeutic INR. We will hold warfarin again. The patient did receive vitamin K this morning as well. 14. History of skin cancer. Continue to monitor. 15. History of chronic kidney disease; however, the patient's GFR is close to 60. We will continue to monitor. 16. Peripheral neuropathy, stable. 17. Lower extremity edema. Continue Lozol. Continue low dose Lasix 20 mg daily. We will monitor input and output. 18. Deep vein thrombosis (DVT) prophylaxis. On warfarin, which has been on hold for today due to supratherapeutic INR. DISPOSITION: The patient's shortness of breath continues to improve somewhat after diuretics. We will keep the patient on IV steroids today due to it is still much worse than baseline, per patient's daughter. According to her, she does not use oxygen at home; however, she was using oxygen about one year ago; however, oxygen was taken off from her due to noncompliance. In addition, daughter is also waiting to discuss with hospice regarding home care. In addition, by daughter's request, the patient should not be using prednisone again in the future due to it does cause the patient confusion and having hallucinations, as well as possible fluid retention. The patient has been discussed with attending doctor, Dr. Garcia. My preceptor for this patient encounter was Dr. Garcia. The preceptor was physically present in the building during the encounter and was fully available. As needed, all aspects of the patient interview, examination, medical decision making process, and medical care plan development were reviewed and approved by the preceptor. The preceptor is aware and concurs with the plan as stated in the body of this note and will attest to such by his/her cosignature.
[2016-05-17 14:00] VITALS: BP 134/64
[2016-05-17] MEDS: ATORVASTATIN 10 MG TAB PO SCH (20:20)
[2016-05-17 22:00] VITALS: BP 138/68
[2016-05-18] MEDS: IPRATROPIUM 0.5MG/ALBUTEROL 2.5MG INH SOL UD 3ML (DUONEB)(J7620) NEB SCH ×4 (01:34→20:07)
[2016-05-18 05:38] LABS: YEAST LIKE CELL URINE AUTO MODERATE
[2016-05-18 06:00] VITALS: BP 158/90
[2016-05-18 06:02] LABS: BASO % 0.1 % (0.0-1.0); EOS % 0.2 % (0.0-3.0); INR 3.87; LARGE UNSTAINED CELL # 0.1 K/mm3 (0.0-0.4); LARGE UNSTAINED CELL % 0.8 % (0.0-4.0); LYMPH # 0.2 K/mm3 (1.5-4.5); LYMPH % 1.7 % (24.0-44.0); MEAN CORPUSCULAR HEMOGLOBIN 34.2 pg (27.0-33.0); MEAN CORPUSCULAR HGB CONC 34.7 g/dl (32.0-36.5); MEAN CORPUSCULAR VOLUME 98.5 fl (80.0-96.0); MONO # 0.7 K/mm3 (0.0-0.8); NEUTROPHILS # 13.2 K/mm3 (1.8-7.7); NEUTROPHILS % 92.3 % (36.0-66.0); PLATELET COUNT, AUTOMATED 194 k/mm3 (150-450); RED CELL DISTRIBUTION WIDTH 11.6 % (11.5-14.5); WHITE BLOOD COUNT 14.3 K/mm3 (4.0-10.0)
[2016-05-18 06:20] LABS: ALBUMIN 3.3 GM/DL (3.2-5.2); ALBUMIN/GLOBULIN RATIO 1.14 (1.00-1.93); ALKALINE PHOSPHATASE 54 U/L (45-117); ALT/SGPT 59 U/L (12-78); ANION GAP 8 MEQ/L (8-16); AST/SGOT 39 U/L (15-37); BILIRUBIN,TOTAL 0.9 MG/DL (0.2-1.0); BLOOD UREA NITROGEN 29 MG/DL (7-18); CALCIUM LEVEL 8.3 MG/DL (8.8-10.2); CARBON DIOXIDE LEVEL 39 MEQ/L (21-32); CHLORIDE LEVEL 86 MEQ/L (98-107); CREATININE FOR GFR 0.85 MG/DL (0.55-1.02); GLOMERULAR FILTRATION RATE > 60.0 (>32); GLUCOSE, FASTING 194 MG/DL (83-110); POTASSIUM SERUM 3.2 MEQ/L (3.5-5.1); SODIUM LEVEL 133 MEQ/L (136-145); TOTAL PROTEIN 6.2 GM/DL (6.4-8.2)
[2016-05-18] MEDS: methylPREDNISolone INJ 125 MG/2 ML VIAL (J2930) IV SCH ×3 (06:21→18:33)
[2016-05-18] MEDS: cefTRIAXone SOD 2 GM in D5W MINI-BAG PLUS 50 ML IV SCH (06:22)
[2016-05-18] MEDS: BUDESONIDE 0.25 MG/2 ML INHALATION SUSPENSION INH SCH ×2 (06:58→20:06)
[2016-05-18 07:13] LABS: ERYTHROCYTE SEDIMENTATION RATE 1 mm/hr (0-42)
[2016-05-18] MEDS: ADVAIR DISKUS 250/50 INH PWD INH SCH ×2 (08:40→20:07)
[2016-05-18] MEDS ORDERED: POTASSIUM CHLORIDE 10% LIQ 20 MEQ/15 ML UDC PO SCH (09:00)
[2016-05-18] MEDS ORDERED: amLODIPine 10 MG TAB PO SCH (09:00)
[2016-05-18] MEDS: LISINOPRIL 5 MG TAB PO SCH (09:00)
[2016-05-18] MEDS ORDERED: AZITHROMYCIN 250 MG TAB PO SCH (09:00)
[2016-05-18] MEDS: METOPROLOL TART 50 MG TAB PO SCH (09:00)
[2016-05-18] MEDS: SPIRONOLACTONE 25 MG TAB PO SCH (09:00)
[2016-05-18] MEDS: INDAPAMIDE 1.25MG TABLET PO SCH (09:00)
[2016-05-18] MEDS: MAGNESIUM CHLORIDE 64 MG TABCR (SLO MAG) PO SCH (09:37)
[2016-05-18] MEDS: LACTOBACILLUS ACIDOPHILUS CAP (BACID) PO SCH ×2 (09:37→17:38)
[2016-05-18] MEDS: GABAPENTIN 100 MG CAP PO SCH ×2 (09:37→20:58)
[2016-05-18] MEDS: FUROSEMIDE 20 MG TAB PO SCH (09:37)
[2016-05-18] MEDS: FLUoxetine 10 MG CAP PO SCH (09:37)
[2016-05-18] MEDS: POTASSIUM CHLORIDE 10 MEQ SR TABLET PO SCH ×2 (09:38→17:39)
[2016-05-18 14:00] VITALS: BP 142/82
[2016-05-18] MEDS: ACETAMINOPHEN TAB 650MG DOSE (2X325MG) PO PRN (14:31)
--- NOTE | 2016-05-18 18:50 | REPUSA ---
CLINICAL HISTORY: Visual changes. TECHNIQUE: Three dimensional [id number] angiography is performed of the [place]. The sergio dy was performed without IV contrast agent. FINDINGS: The supraclinoid portions of the internal carotid arteries are of normal shape. The normal bifurcation is seen. The middle cerebral arteries are unremarkable in appearance. The posterior circu lation is visualized and shows no evidence of occlusion or aneurysm formation. The basilar tip is see n and shows no aneurysm formation. There is no evidence of beading to suggest vasculitis. IMPRESSION: MRA of the [place] is within normal limits. Thank you for your kind referral of this patient.
[2016-05-18] MEDS: ATORVASTATIN 10 MG TAB PO SCH (20:58)
[2016-05-18 22:00] VITALS: BP 142/79
[2016-05-18] MEDS: IPRATROPIUM 0.5MG/ALBUTEROL 2.5MG INH SOL UD 3ML (DUONEB)(J7620) NEB PRN (22:50)
[2016-05-19] MEDS: methylPREDNISolone INJ 125 MG/2 ML VIAL (J2930) IV SCH ×4 (00:32→18:39)
[2016-05-19] MEDS: IPRATROPIUM 0.5MG/ALBUTEROL 2.5MG INH SOL UD 3ML (DUONEB)(J7620) NEB SCH ×4 (02:00→19:29)
[2016-05-19] MEDS: IPRATROPIUM 0.5MG/ALBUTEROL 2.5MG INH SOL UD 3ML (DUONEB)(J7620) NEB PRN (04:28)
[2016-05-19 06:00] VITALS: BP 154/81
[2016-05-19] MEDS: cefTRIAXone SOD 2 GM in D5W MINI-BAG PLUS 50 ML IV SCH (06:05)
[2016-05-19 06:14] LABS: BASO % 0.1 % (0.0-1.0); EOS % 0.2 % (0.0-3.0); LARGE UNSTAINED CELL # 0.1 K/mm3 (0.0-0.4); LARGE UNSTAINED CELL % 0.7 % (0.0-4.0); LYMPH # 0.3 K/mm3 (1.5-4.5); LYMPH % 1.7 % (24.0-44.0); MEAN CORPUSCULAR HEMOGLOBIN 33.8 pg (27.0-33.0); MEAN CORPUSCULAR HGB CONC 33.6 g/dl (32.0-36.5); MEAN CORPUSCULAR VOLUME 100.6 fl (80.0-96.0); MONO # 0.7 K/mm3 (0.0-0.8); MONO % 4.6 % (0.0-5.0); NEUTROPHILS # 13.9 K/mm3 (1.8-7.7); NEUTROPHILS % 92.7 % (36.0-66.0); PLATELET COUNT, AUTOMATED 194 k/mm3 (150-450); RED CELL DISTRIBUTION WIDTH 11.7 % (11.5-14.5)
[2016-05-19] MEDS: ACETAMINOPHEN TAB 650MG DOSE (2X325MG) PO PRN (06:14)
[2016-05-19 06:23] LABS: INR 4.31
[2016-05-19 06:37] LABS: ALBUMIN 3.3 GM/DL (3.2-5.2); ALBUMIN/GLOBULIN RATIO 1.18 (1.00-1.93); ALKALINE PHOSPHATASE 54 U/L (45-117); ALT/SGPT 56 U/L (12-78); ANION GAP 10 MEQ/L (8-16); AST/SGOT 31 U/L (15-37); BILIRUBIN,TOTAL 0.8 MG/DL (0.2-1.0); BLOOD UREA NITROGEN 32 MG/DL (7-18); CALCIUM LEVEL 8.6 MG/DL (8.8-10.2); CARBON DIOXIDE LEVEL 39 MEQ/L (21-32); CHLORIDE LEVEL 91 MEQ/L (98-107); CREATININE FOR GFR 0.87 MG/DL (0.55-1.02); GLOMERULAR FILTRATION RATE > 60.0 (>32); GLUCOSE, FASTING 198 MG/DL (83-110); POTASSIUM SERUM 3.7 MEQ/L (3.5-5.1); SODIUM LEVEL 140 MEQ/L (136-145); TOTAL PROTEIN 6.1 GM/DL (6.4-8.2)
[2016-05-19] MEDS: BUDESONIDE 0.25 MG/2 ML INHALATION SUSPENSION INH SCH ×2 (08:25→19:24)
[2016-05-19] MEDS: ADVAIR DISKUS 250/50 INH PWD INH SCH ×2 (08:26→19:24)
[2016-05-19] MEDS: FUROSEMIDE 20 MG TAB PO SCH (08:45)
[2016-05-19] MEDS: GABAPENTIN 100 MG CAP PO SCH (08:46)
[2016-05-19] MEDS: LACTOBACILLUS ACIDOPHILUS CAP (BACID) PO SCH ×2 (08:46→18:39)
[2016-05-19] MEDS: POTASSIUM CHLORIDE 10 MEQ SR TABLET PO SCH ×2 (08:46→18:39)
[2016-05-19] MEDS: INDAPAMIDE 1.25MG TABLET PO SCH (08:46)
[2016-05-19] MEDS: LISINOPRIL 5 MG TAB PO SCH (08:46)
[2016-05-19] MEDS: MAGNESIUM CHLORIDE 64 MG TABCR (SLO MAG) PO SCH (08:47)
[2016-05-19] MEDS: RESTASIS (PATIENT'S OWN MED) OU SCH (08:47)
[2016-05-19] MEDS: SPIRONOLACTONE 25 MG TAB PO SCH (08:47)
[2016-05-19] MEDS: FLUoxetine 10 MG CAP PO SCH (08:47)
[2016-05-19] MEDS: METOPROLOL TART 50 MG TAB PO SCH ×2 (08:47→20:53)
[2016-05-19] MEDS ORDERED: AZITHROMYCIN 250 MG TAB PO SCH (09:00)
[2016-05-19 14:00] VITALS: BP 160/91
[2016-05-19] MEDS ORDERED: PHYTONADIONE 2.5 MG **1/2 TAB PO ONE (18:00)
[2016-05-19] MEDS: ATORVASTATIN 10 MG TAB PO SCH (20:52)
[2016-05-19] MEDS: GABAPENTIN 300 MG CAP PO SCH (20:53)
[2016-05-19 22:00] VITALS: BP 147/89
[2016-05-20] MEDS: methylPREDNISolone INJ 125 MG/2 ML VIAL (J2930) IV SCH ×3 (00:10→16:59)
[2016-05-20] MEDS: IPRATROPIUM 0.5MG/ALBUTEROL 2.5MG INH SOL UD 3ML (DUONEB)(J7620) NEB SCH ×4 (00:14→20:59)
[2016-05-20 00:15] VITALS: O2SAT 97
[2016-05-20] MEDS: IPRATROPIUM 0.5MG/ALBUTEROL 2.5MG INH SOL UD 3ML (DUONEB)(J7620) NEB PRN (05:38)
[2016-05-20 06:00] VITALS: BP 137/77
[2016-05-20] MEDS: cefTRIAXone SOD 2 GM in D5W MINI-BAG PLUS 50 ML IV SCH (06:00)
[2016-05-20 06:54] LABS: BASO % 0.3 % (0.0-1.0); LARGE UNSTAINED CELL # 0.2 K/mm3 (0.0-0.4); LARGE UNSTAINED CELL % 0.9 % (0.0-4.0); LYMPH # 0.4 K/mm3 (1.5-4.5); LYMPH % 2.7 % (24.0-44.0); MEAN CORPUSCULAR HEMOGLOBIN 34.2 pg (27.0-33.0); MEAN CORPUSCULAR HGB CONC 33.2 g/dl (32.0-36.5); MEAN CORPUSCULAR VOLUME 102.8 fl (80.0-96.0); MONO # 0.8 K/mm3 (0.0-0.8); MONO % 4.5 % (0.0-5.0); NEUTROPHILS % 91.6 % (36.0-66.0); PLATELET COUNT, AUTOMATED 188 k/mm3 (150-450); RED CELL DISTRIBUTION WIDTH 11.7 % (11.5-14.5); WHITE BLOOD COUNT 16.4 K/mm3 (4.0-10.0)
[2016-05-20 07:05] LABS: INR 4.69
[2016-05-20 07:10] LABS: ALBUMIN 3.1 GM/DL (3.2-5.2); ALBUMIN/GLOBULIN RATIO 1.24 (1.00-1.93); ALKALINE PHOSPHATASE 55 U/L (45-117); ALT/SGPT 80 U/L (12-78); ANION GAP 4 MEQ/L (8-16); AST/SGOT 39 U/L (15-37); BILIRUBIN,TOTAL 0.7 MG/DL (0.2-1.0); BLOOD UREA NITROGEN 29 MG/DL (7-18); CALCIUM LEVEL 8.2 MG/DL (8.8-10.2); CARBON DIOXIDE LEVEL 41 MEQ/L (21-32); CHLORIDE LEVEL 90 MEQ/L (98-107); CREATININE FOR GFR 0.88 MG/DL (0.55-1.02); GLOMERULAR FILTRATION RATE > 60.0 (>32); GLUCOSE, FASTING 183 MG/DL (83-110); POTASSIUM SERUM 3.9 MEQ/L (3.5-5.1); SODIUM LEVEL 135 MEQ/L (136-145); TOTAL PROTEIN 5.6 GM/DL (6.4-8.2)
[2016-05-20] MEDS: BUDESONIDE 0.25 MG/2 ML INHALATION SUSPENSION INH SCH ×2 (08:40→19:40)
[2016-05-20] MEDS: ADVAIR DISKUS 250/50 INH PWD INH SCH (08:41)
[2016-05-20] MEDS: MAGNESIUM CHLORIDE 64 MG TABCR (SLO MAG) PO SCH (09:00)
[2016-05-20] MEDS: RESTASIS (PATIENT'S OWN MED) OU SCH (09:00)
[2016-05-20] MEDS: FUROSEMIDE 20 MG TAB PO SCH (09:17)
[2016-05-20] MEDS: METOPROLOL TART 50 MG TAB PO SCH ×2 (09:17→20:22)
[2016-05-20] MEDS: LISINOPRIL 5 MG TAB PO SCH (09:17)
[2016-05-20] MEDS: GABAPENTIN 300 MG CAP PO SCH (09:18)
[2016-05-20] MEDS: LACTOBACILLUS ACIDOPHILUS CAP (BACID) PO SCH ×2 (09:18→16:59)
[2016-05-20] MEDS: FLUoxetine 10 MG CAP PO SCH (09:18)
[2016-05-20] MEDS: POTASSIUM CHLORIDE 10 MEQ SR TABLET PO SCH ×2 (09:18→17:00)
[2016-05-20] MEDS: SPIRONOLACTONE 25 MG TAB PO SCH (09:19)
--- NOTE | 2016-05-20 10:05 | REP ---
Clinical: Shortness of breath. Comparison: 05/15/2016. Findings: Stable cardiomegaly and atherosclerotic changes of the aorta noted. Lung ohara demonstrate chronic interstitial changes without acute consolidation, effusion, or pneumothorax. Skeletal structures demonstrate age-related changes. Impression: Chronic stable changes. Cardiomegaly. No acute cardiopulmonary process. Signed by Juanito Gomes MD 05/20/2016 09:58 A
--- NOTE | 2016-05-20 10:11 | IPN ---
DATE: 05/18/2016 Time patient was seen was this morning at 9:30 a.m. The patient was seen and examined at the bedside. No acute events overnight. The patient continues to have trouble breathing today. It has improved slightly from yesterday. The patient still has a cough. In addition, the patient is a poor historian. She stated however that she has some trouble seeing from both eyes and she was supposed to see ophthalmology before she came in, however she did not got due to she was admitted in the hospital. As per the patient, this eye change has been rather recent, however due to dementia it is unclear how reliable this is. Will also check with the daughter regarding her vision. Otherwise, the patient denies any chest pain, any abdominal pains, or any nausea, vomiting, diarrhea, or constipation. The patient did require a straight cath last night as well. Will continue to monitor and possibly need to straight cath her again if bladder scan shows urine greater than 400. PHYSICAL EXAMINATION: VITAL SIGNS: Temperature 97.2, pulse 64, respirations 19, blood pressure 158/90, repeat blood pressure 3 hours later was 108/56, oxygen was satting at 91% on 2 liters of nasal cannula. GENERAL: The patient is a weak looking, elderly female who was alert, awake, and oriented times one to herself. Appears to be in mild distress, sitting up comfortably in her chair. HEENT: Normocephalic, atraumatic. Extraocular motors intact. The patient's left pupil was dilated compared to the right one. Otherwise, mucous membranes moist. NECK: Supple. No neck lymphadenopathy. CARDIOVASCULAR: Irregularly irregular. S1, S2. LUNGS: Patient has diffuse wheezing bilaterally with also some rhonchi. Shows only slight improvement compared to the day before. ABDOMEN: Positive bowel sounds. Soft, nontender, nondistended. No peritoneal signs. No ecchymosis. EXTREMITIES: Show 1+ pitting edema bilaterally. SKIN: Warm and dry. NEUROLOGIC: Cranial nerves II through XII intact. No focal neurological deficits. LABORATORIES: WBC 14.3 improved compared to the day prior of 15.5, hemoglobin 14.5, hematocrit 41.8 and a platelet count of 194, MCV 98.5. Sodium 133, potassium 3.2, chloride 86, bicarbonate 39, BUN 29, creatinine 0.85 with GFR of 60, fasting glucose of 194, calcium 8.3, total bilirubin 0.9, AST was slightly elevated at 39, ALT 59, CRP 1.16, improved from the day prior. BNP has been ordered, results pending. Total protein 6.2, albumin 3.3. The patient's coagulation studies show PT of 38, INR was 3.87. The patient had a urinalysis done this morning showing glucose of 1, blood 1, leukocyte esterase trace, and WBC 15, RBC 7 and moderate yeastlike cells in the urine. Urine culture result is pending. Urine culture from four days ago shows no growth. Blood culture from five days ago shows no growth. No new imaging. ASSESSMENT/PLAN: 85-year-old female with past medical history of COPD, noncompliant with oxygen at home for about a year. She was on 2 liters of oxygen a year ago. Also atrial fibrillation on warfarin, hypertension, coronary artery disease status post stent placement, skin cancer, CVA, diverticulitis, and peripheral neuropathy, who presented with: 1. Shortness of breath after choking on her food with wheezing admitted for COPD exacerbation and also possible pneumonia. Chest x-ray only shows possible lingular infiltrate. The patient has been started on Rocephin and azithromycin, will continue. The patient's symptoms only improved slightly. Will increase the patient's Solu-Medrol from 60 mg every 12 hours to every 6 hours again. She does have significant wheezing still. Will also start the patient on Acapella. Once the patient lung sounds improve further, will place the patient on dexamethasone due to the patient's intolerance of prednisone with hallucinations and possible fluid retention, and will continue to monitor and keep the patient on nasal cannula. 2. Possible fluid overload. Improved. Echocardiogram ordered. It shows that the patient has borderline concentric left ventricular hypertrophy and hyperkinetic wall motion. Will continue the patient on low dose Lasix 20 mg by mouth daily. Continue to monitor intake and output. 3. History of atrial fibrillation with rapid ventricular response (RVR) on warfarin. Continue to monitor. Warfarin has been on hold due to supratherapeutic INR. 4. Urinary retention. The patient's Brand was discontinued yesterday, however last night she had another retention and was straight cathed. Will provide a bladder scan and straight cath again if the urine level is greater than 300 mL. 5. COPD exacerbation. As stated above, continue steroids and also Rocephin and azithromycin. Continue oxygen. The patient has been started on Acapella and continue incentive spirometry. 6. Possible pneumonia, possibly secondary to aspiration. The patient did have leukocytosis today, however improved from yesterday. The patient's ESR and CRP has been trending down however. Will continue to keep the patient on Rocephin and azithromycin. Will switch to by mouth before discharge. 7. Supratherapeutic INR. Today the patient's INR is still above 3. Will continue to hold warfarin. 8. Ascending aortic aneurysm measuring 4.6 cm. Will leave decision to primary care provider regarding vascular surgery consult. 9. Hypertensive urgency, resolved. 10. History of hypertension. Continue metoprolol, lisinopril and I have increased the spironolactone from 12.5 mg to 25 mg today with hold parameters with hold parameters to hold if systolic blood pressure is less than or equal to 110. This should help with the patient's hypokalemia. 11. Hypokalemia. Potassium level is 3.2 today. Will keep the patient on potassium 40 mg twice a day. At this point, the patient's etiology for hypokalemia is unclear. 12. Lactic acidosis, initially around 4, it was trending down. Will continue to monitor. Possibly secondary to the patient's peripheral vascular disease. 13. Coronary artery disease, status post stent placement. Continue to monitor. 14. History of skin cancer. Continue to monitor. 15. Chronic kidney disease. So far, GFR has been normal. 16. Peripheral neuropathy, stable. 17. Lower extremity edema. Continue Lozol, improved. Continue Lasix 20 mg daily. 18. Deep vein thrombosis (DVT) prophylaxis. Warfarin has been on hold due to supratherapeutic INR. DISPOSITION: The patient's shortness of breath continues to improve slightly. Will increase IV steroids to help the patient's breathing. Will need to talk with the patient's daughter again regarding the patient's vision. She seems to have macular degeneration and was going to see ophthalmology before admission. Otherwise, will keep the patient on IV steroids, antibiotics, low dose Lasix, and continue to monitor the patient. The patient has been discussed with attending doctor, Dr. Garcia. My preceptor for this patient encounter was Dr. Rosey Garcia. The preceptor was physically present in the building during the encounter and was fully available. As needed, all aspects of the patient interview, examination, medical decision making process, and medical care plan development were reviewed and approved by the preceptor. The preceptor is aware and concurs with the plan as stated in the body of this note and will attest to such by his/her cosignature.
--- NOTE | 2016-05-20 10:37 | IPN ---
DATE OF SERVICE: 05/19/2016 SUBJECTIVE: Patient seen and examined in the room today. Patient has continued to remain confused. Patient does have a complaint about decreased vision yesterday. There is concern for acute neurological events. Patient was sent to radiology for an MRI and MRA. Due to intolerance of the imaging, patient refused to continue with the MRI. Only MRA was performed. Patient seen this morning. Patient stated, "As long as I'm using my glasses, my vision returns to normal." No overnight events reported. OBJECTIVE: VITAL SIGNS: Temperature 96.6, pulse 126, respirations 22, blood pressure 154/81, pulse oximetry 93% with 2 liters nasal cannula. GENERAL: Patient is alert, awake, irritated. Patient is not oriented. HEENT: Normocephalic, atraumatic. Extraocular motor grossly intact. CARDIOVASCULAR: Positive S1, S2. Irregularly irregular. LUNGS: Poor respiratory effort. Expiratory wheezes. No crackles. ABDOMEN: Soft, nontender, nondistended. Bowel sounds present. No rebound. No guarding. EXTREMITIES: Mild pitting edema bilaterally. LABORATORY DATA: WBC 15, hemoglobin 14.6, hematocrit 43.5, platelet count 194. Sodium 140, potassium 3.7, chloride 91, carbon dioxide 39, BUN 32, creatinine 0.87, GFR greater than 60, fasting glucose 198, A1c is 6.5, calcium 8.6 AST 31, ALT 56, alkaline phosphatase 54, total protein 621. PT 41.3, INR 4.31 ASSESSMENT AND PLAN: 1. Acute respiratory distress with wheezes. Initially admitted for chronic obstructive pulmonary disease (COPD) exacerbation and possible pneumonia. Patient has been on intravenous (IV) steroids and patient has been taking Rocephin and azithromycin. Patient has been taking seven days of azithromycin and Rocephin. Antibiotics are discontinued. Patient continues to have improvement of the C-reactive protein (CRP). Patient's acute respiratory symptoms have been complicated by fluid overload and Lasix and spirolactone has been given to the patient for diuresis. 2. Severe pulmonary hypertension. Currently, patient is on diuresis. 3. History of urinary retention. Patient had a Brand catheter which was removed yesterday. We will continue to monitor whether patient has the capacity to have enough urination. 4. History of chronic obstructive pulmonary disease (COPD). Patient had a COPD exacerbation. Patient has been slowly tapering the steroids. Patient just finished course of Rocephin and azithromycin. Patient will continue with breathing treatments. 5. Illustration of abdominal aortic aneurysm measuring 4.6 cm. Patient needs to continue followup in the outpatient setting. 6. History of hypertensive urgency. Currently, patient is hypertensive in the hypertensive urgency category. We will increase the frequency of metoprolol tartrate. 7. Atrial fibrillation with rapid ventricular response. Currently, patient's heart rate is below 110 and metoprolol dose frequency is being adjusted. Continue to monitor. 8. History of hypertension. On metoprolol, lisinopril and spironolactone. 9. History of coronary artery disease status post stent. 10. Supratherapeutic INR. Patient's warfarin is on hold. Patient will receive another dose of vitamin K. 11. History of chronic kidney disease. Currently, patient has normal kidney function. Patient does not have any kidney disease anymore. 12. Deep venous thrombosis (DVT) prophylaxis. Patient is on warfarin with a supratherapeutic INR at this moment.
[2016-05-20] MEDS: FORMOTEROL FUMARATE 20 MCG/2 ML INHALATION SOLUTION (PERFOROMIST) INH SCH ×2 (12:27→19:40)
--- NOTE | 2016-05-20 13:27 | IPN ---
DATE: 05/20/2016 TIME SEEN: This morning at 10:15. SUBJECTIVE: The patient is being seen and examined at bedside. No acute events overnight. The patient stated that she is able to breathe better and denies any chest pain, denies any fever or chills, any nausea or vomiting, diarrhea or constipation. The patient denies any other current new complaints. PHYSICAL EXAMINATION: VITAL SIGNS: Temperature was 96.6, pulse 88, respirations 20, blood pressure 151/80. Oxygen saturating 92% on two liters of nasal cannula. GENERAL: The patient is frail-looking elderly female who was alert, awake, oriented to herself only. Does not appear to be in distress. Lying comfortably in bed with head elevated at 45-degree angle. HEENT: Normocephalic, atraumatic. Extraocular motor intact. Mucus moist. NECK: Supple. No neck lymphadenopathy. CARDIOVASCULAR: Irregularly irregular S1, S2. 2/6 systolic heart murmur. LUNGS: Diffuse rhonchi and slight wheezing bilaterally. Otherwise air entrance is good compared to two days ago. ABDOMEN: Positive bowel sounds. Soft, nontender, nondistended. No peritoneal signs. No ecchymosis. EXTREMITIES: No edema, clubbing or cyanosis. SKIN: Warm and dry. NEUROLOGIC: Cranial nerves II through XII intact. No focal neurologic deficit. LABORATORY DATA: WBC 16.4, hemoglobin 14.1, hematocrit was 42.5, with platelet count of 188. Sodium 135, potassium 3.9, chloride was 90, bicarbonate 41, BUN 29, creatinine 0.88, GFR greater than 60, fasting glucose 183. Lactic acid, however, was elevated 2.3. However, it was reduced compared to a few days ago which was 2.7, and on admission, the patient's lactic acid was 4.2. AST was, however, elevated compared to the day prior at 39, as well as ALT 80. Alkaline phosphatase 65. CRP was 0.34. Total protein 5.6, albumin 3.1 reduced compared to day prior. Patient's hepatitis panel has been negative for A, B, and C. Coagulation, however, was still elevated with a PT of 44.1, INR of 4.69. MICROBIOLOGY: No new cultures. The patient, however, does have a urine culture from two days ago that shows yeast-like organism greater than 100,000. However, the patient is asymptomatic. IMAGING: The patient had a portable chest x-ray today that shows chronic stable changes, cardiomegaly. No acute cardiopulmonary process. ASSESSMENT AND PLAN: An 80-year-old female with past medical history of chronic obstructive pulmonary disease (COPD), noncompliant with oxygen at home for about a year. According to the patient's daughter, she was on oxygen two liters 24 hours a day a year ago; also atrial fibrillation on warfarin, hypertension, coronary artery disease status post stent placement, skin cancer, cerebrovascular accident (CVA), diverticulitis, peripheral neuropathy, who presented with: 1. Shortness of breath after choking on food with wheezing, admitted for COPD exacerbation, and also possible pneumonia. The patient's shortness of breath has improved today. We will reduce the patient's Solu-Medrol from every eight hours to every 12 hours. The patient's chest x-ray today also confirms no pneumonia. Herself also states that she is breathing better. In addition, the patient's Advair according to respiratory that the patient cannot use it due to she has poor inspiratory drive. Therefore, we have switched it to a nebulizer Perforomist, to replace Advair. 2. Possible fluid overload, resolved. Echocardiogram shows borderline concentric left ventricular hypertrophy with hyperkinetic wall motion. Will continue low-dose Lasix. 3. Atrial fibrillation with rapid ventricular response (RVR) on warfarin. Continue to monitor. Currently not in RVR. Heart rate was in the 80s. 4. Urinary retention. Required Brand. It has been discontinued. No issues currently. 5. COPD exacerbation. Will continue to taper steroid. Continue Rocephin and azithromycin. The patient has been started on Acapella and incentive spirometry. 6. Possible pneumonia, possibly secondary to aspiration, resolved. Erythrocyte sedimentation rate (ESR), and C-reactive protein (CRP) continue to trend down. 7. Supratherapeutic international normalized ratio (INR), unclear etiology. Continue to hold warfarin if still elevated. 8. Ascending aortic aneurysm measuring 4.6 cm in diameter. Will leave decision to primary provider regarding vascular surgery consult. According to patient's daughter, the patient could not have lower extremity procedure for her peripheral arterial disease due to poor lung function. 9. Hypertensive urgency, resolved. 10. History of hypertension. Continue metoprolol, lisinopril and spironolactone. 11. Hypokalemia. Continue supplements. 12. Lactic acidosis. Today is around 2.3. Reduced compared to admission. 13. Coronary artery disease status post stent placement, stable. 14.history of skin cancer. Continue to monitor. 15. Chronic kidney disease, glomerular filtration rate (GFR) currently normal. 16. Peripheral neuropathy, stable. 17. Lower extremity edema. Continue Lozol and Lasix. 18. Deep venous thrombosis (DVT) prophylaxis. Warfarin has been on hold due to supratherapeutic INR. DISPOSITION: The patient does have shortness of breath; however, it has much improved today. We will taper down the patient's steroid. We will switch the patient's IV antibiotics to oral once the patient is ready to go. The patient has been discussed with the attending doctor, Dr. Garcia. My preceptor for this patient encounter was Dr. Rosey Garcia. The preceptor was physically present in the building during the encounter and was fully available as needed. All aspects of the patient interview, examination, medical decision making process, and medical care plan development were reviewed and approved by the preceptor. The preceptor is aware and concurs with the plan as stated in the body of this note and will attest to such by his/her co-signature.
[2016-05-20 14:00] VITALS: BP 131/74
[2016-05-20] MEDS: GABAPENTIN 100 MG CAP PO SCH (20:22)
[2016-05-20] MEDS: ATORVASTATIN 10 MG TAB PO SCH (20:22)
[2016-05-20 22:00] VITALS: BP 130/75
[2016-05-21] MEDS: IPRATROPIUM 0.5MG/ALBUTEROL 2.5MG INH SOL UD 3ML (DUONEB)(J7620) NEB SCH ×4 (01:04→20:04)
[2016-05-21] MEDS: methylPREDNISolone INJ 125 MG/2 ML VIAL (J2930) IV SCH (05:54)
[2016-05-21 06:00] VITALS: BP 152/86
[2016-05-21] MEDS: cefTRIAXone SOD 2 GM in D5W MINI-BAG PLUS 50 ML IV SCH (06:01)
[2016-05-21] MEDS: BISACODYL 5 MG TAB PO PRN (06:01)
[2016-05-21 07:02] LABS: BASO % 0.2 % (0.0-1.0); EOS % 0.1 % (0.0-3.0); INR 3.46; LARGE UNSTAINED CELL # 0.2 K/mm3 (0.0-0.4); LARGE UNSTAINED CELL % 0.9 % (0.0-4.0); LYMPH # 0.5 K/mm3 (1.5-4.5); MEAN CORPUSCULAR HEMOGLOBIN 34.2 pg (27.0-33.0); MEAN CORPUSCULAR HGB CONC 33.1 g/dl (32.0-36.5); MEAN CORPUSCULAR VOLUME 103.4 fl (80.0-96.0); MONO # 0.7 K/mm3 (0.0-0.8); MONO % 3.8 % (0.0-5.0); NEUTROPHILS # 16.4 K/mm3 (1.8-7.7); PLATELET COUNT, AUTOMATED 166 k/mm3 (150-450); RED CELL DISTRIBUTION WIDTH 11.7 % (11.5-14.5); WHITE BLOOD COUNT 17.8 K/mm3 (4.0-10.0)
[2016-05-21 07:38] LABS: ALBUMIN 3.1 GM/DL (3.2-5.2); ALBUMIN/GLOBULIN RATIO 1.15 (1.00-1.93); ALKALINE PHOSPHATASE 56 U/L (45-117); ALT/SGPT 91 U/L (12-78); ANION GAP 8 MEQ/L (8-16); AST/SGOT 37 U/L (15-37); BILIRUBIN,TOTAL 0.8 MG/DL (0.2-1.0); BLOOD UREA NITROGEN 35 MG/DL (7-18); CALCIUM LEVEL 8.5 MG/DL (8.8-10.2); CARBON DIOXIDE LEVEL 35 MEQ/L (21-32); CHLORIDE LEVEL 91 MEQ/L (98-107); CREATININE FOR GFR 0.91 MG/DL (0.55-1.02); GLOMERULAR FILTRATION RATE > 60.0 (>32); GLUCOSE, FASTING 173 MG/DL (83-110); SODIUM LEVEL 134 MEQ/L (136-145); TOTAL PROTEIN 5.8 GM/DL (6.4-8.2)
[2016-05-21] MEDS: BUDESONIDE 0.25 MG/2 ML INHALATION SUSPENSION INH SCH ×2 (07:41→19:44)
[2016-05-21] MEDS: FORMOTEROL FUMARATE 20 MCG/2 ML INHALATION SOLUTION (PERFOROMIST) INH SCH ×2 (07:41→19:44)
[2016-05-21] MEDS: MAGNESIUM CHLORIDE 64 MG TABCR (SLO MAG) PO SCH (09:00)
[2016-05-21] MEDS: LACTOBACILLUS ACIDOPHILUS CAP (BACID) PO SCH ×2 (09:20→17:46)
[2016-05-21] MEDS: POTASSIUM CHLORIDE 10 MEQ SR TABLET PO SCH ×2 (09:20→17:46)
[2016-05-21] MEDS: LISINOPRIL 5 MG TAB PO SCH (09:20)
[2016-05-21] MEDS: GABAPENTIN 100 MG CAP PO SCH ×2 (09:21→20:17)
[2016-05-21] MEDS: FLUoxetine 10 MG CAP PO SCH (09:21)
[2016-05-21] MEDS: RESTASIS (PATIENT'S OWN MED) OU SCH (09:21)
[2016-05-21] MEDS: METOPROLOL TART 50 MG TAB PO SCH ×2 (09:21→20:18)
[2016-05-21] MEDS: FUROSEMIDE 20 MG TAB PO SCH (09:21)
[2016-05-21] MEDS: SPIRONOLACTONE 25 MG TAB PO SCH (09:21)
[2016-05-21 14:00] VITALS: BP 138/69
--- NOTE | 2016-05-21 14:16 | IPN ---
DATE OF SERVICE: 05/21/2016 TIME PATIENT WAS SEEN: This morning at 10:30. Patient was seen and examined at bedside. Patient is breathing better. Denies any fever or chills, any chest pain, abdominal pains, nausea, vomiting, or constipation. Denies any other current new complaints. PHYSICAL EXAMINATION: VITAL SIGNS: Temperature 97.4, pulse 97, respirations 20, blood pressure 152/86 , oxygen saturating on 95% on 2 liters nasal cannula. GENERAL: Patient is a weak-looking elderly female who was alert, awake, oriented to herself only. Does not appear to be in distress, laying comfortably in bed with head elevated at 30 degrees. HEENT: Normocephalic, atraumatic. Extraocular motor intact. Mucosa moist. NECK: Supple. LUNGS: Diffuse wheezing and rhonchi bilaterally. Air entry is slightly worse than compared to day prior. CARDIOVASCULAR: Irregularly irregular. 3/6 systolic heart murmur. ABDOMEN: Positive bowel sounds. Soft, nontender, nondistended. No peritoneal signs. No ecchymosis. EXTREMITIES: No edema, clubbing or cyanosis. SKIN: Warm and dry. NEUROLOGICAL: Cranial nerves II-XII intact. No focal neurological deficits. LABORATORIES: WBC 17.8, hemoglobin 14.2, hematocrit 43.1, with platelet count of 166. MCV 103.4. Sodium 134, potassium 4, chloride 91, bicarbonate 35, BUN 35, creatinine 0.91, GFR greater than 60, fasting glucose 173, calcium 9.5. Total bilirubin 5.8, direct bilirubin 37, AST 37, ALT 91, alkaline phosphatase 56, total protein 5.8, albumin 3.1. PT 34.8, 3.46 Urine culture from three days ago shows yeast-like organism. No new imaging. ASSESSMENT AND PLAN: An 80-year-old female with past medical history of chronic obstructive pulmonary disease (COPD), noncompliant with oxygen at home for about a year. According to patient's daughter, she was on oxygen 2 liters 24 hours a day a year ago. Also atrial fibrillation on warfarin, hypertension, coronary artery disease status post stent placement, skin cancer, cerebrovascular accident (CVA), diverticulitis, peripheral neuropathy, presented with: 1. Shortness of breath after choking on food and wheezing. Admitted for chronic obstructive pulmonary disease (COPD) exacerbation, also, possible pneumonia. Most recent chest x-ray shows a normal chest, trouble breathing. Has improved for the past few days. Patient's Solu-Medrol has been tapering down from 60 mg every 12 hours to 40 mg every 12 hours. We have also started her Mobil-Mist nebulizer. 2. Possible fluid overload. Resolved. 3. Echocardiogram shows borderline concentric left ventricle hypertrophy with hyperkinetic wall motion. Continue low dose Lasix. 4. Atrial fibrillation with rapid ventricular response. Rapid ventricular response has resolved. Continue to monitor. Warfarin is on hold due to supratherapeutic INR. 5. Urinary retention. Required Brand. Resolved. 6. Chronic obstructive pulmonary disease (COPD) exacerbation. Continue to taper steroid. Continue Rocephin and azithromycin. Continue acapella. 7. Possible pneumonia secondary to aspiration. Resolved. 8. Supratherapeutic INR. INR is above 3 today. Continue to hold Warfarin. 9. Ascending aortic aneurysm measuring 4.6 cm in diameter. Will leave decision to primary care regarding vascular surgery consult. According to patient's doctor, she could not have a lower extremity procedure for peripheral arterial disease due to a poor lung function. 10. Hyperintensive emergency. Resolved. 11. History of hypertension. Continue metoprolol, lisinopril, spironolactone. 12. Hypokalemia. Continue supplement. 13. Lactic acidosis. Improved. 14. Coronary artery disease status post stent placement. Stable. 15. History of skin cancer. Continue to monitor. 16. History of cerebrovascular accident (CVA). Continue to monitor. 17. Peripheral neuropathy. Stable/ 18. Lower extremity edema. Continue low salt and Lasix. Currently resolved. 19. Dementia. Appears to be worsened compared to baseline per patient's daughter. Continue to monitor. 20. Deep venous thrombosis (DVT) prophylaxis. Warfarin has been on hold due to supratherapeutic INR. DISPOSITION: Patient requested rehabilitation. [facility] will talk with patient about that this afternoon and will follow up. Currently, we will continue DuoNebs, steroid and antibiotic. Patient has been discussed with attending doctor, Dr. De León. My preceptor for this patient encounter was Dr. Zuly De León. The preceptor was physically present in the building during the encounter and was fully available as needed. All aspects of the patient interview, examination, medical decision-making process, and medical care plan development were reviewed and approved by the preceptor. The preceptor is aware and concurs with the plan as stated in the body of this note and will attest to such by his/her co-signature. I have both independently examined this patient as well as reviewed the note. I have discussed in detail with the resident the findings and plan of treatment as documented in the residents note. I will continue to follow the patient and offer further guidance to the patients care as necessary during this hospital stay. Zuly FRANKLIN
[2016-05-21] MEDS: IPRATROPIUM 0.5MG/ALBUTEROL 2.5MG INH SOL UD 3ML (DUONEB)(J7620) NEB PRN (16:29)
[2016-05-21] MEDS: methylPREDNISolone INJ 40 MG/1 ML VIAL (J2920) IV SCH (17:46)
[2016-05-21] MEDS ORDERED: methylPREDNISolone INJ 40 MG/1 ML VIAL (J2920) IV SCH (18:00)
[2016-05-21] MEDS: ATORVASTATIN 10 MG TAB PO SCH (20:17)
[2016-05-21 22:00] VITALS: BP 126/84
[2016-05-22] MEDS: IPRATROPIUM 0.5MG/ALBUTEROL 2.5MG INH SOL UD 3ML (DUONEB)(J7620) NEB SCH ×4 (01:55→19:43)
[2016-05-22] MEDS: IPRATROPIUM 0.5MG/ALBUTEROL 2.5MG INH SOL UD 3ML (DUONEB)(J7620) NEB PRN ×2 (05:13→15:40)
[2016-05-22 06:00] VITALS: BP 166/84
[2016-05-22] MEDS: methylPREDNISolone INJ 40 MG/1 ML VIAL (J2920) IV SCH ×2 (06:15→18:09)
[2016-05-22] MEDS: cefTRIAXone SOD 2 GM in D5W MINI-BAG PLUS 50 ML IV SCH (06:15)
[2016-05-22 07:12] LABS: MEAN CORPUSCULAR HEMOGLOBIN 34.6 pg (27.0-33.0); MEAN CORPUSCULAR HGB CONC 34.4 g/dl (32.0-36.5); MEAN CORPUSCULAR VOLUME 100.6 fl (80.0-96.0); RED CELL DISTRIBUTION WIDTH 11.5 % (11.5-14.5); WHITE BLOOD COUNT 19.2 K/mm3 (4.0-10.0)
[2016-05-22] MEDS: FORMOTEROL FUMARATE 20 MCG/2 ML INHALATION SOLUTION (PERFOROMIST) INH SCH ×2 (07:14→19:42)
[2016-05-22] MEDS: BUDESONIDE 0.25 MG/2 ML INHALATION SUSPENSION INH SCH ×2 (07:14→19:42)
[2016-05-22 07:26] LABS: INR 3.14
[2016-05-22 07:33] LABS: ANION GAP 7 MEQ/L (8-16); BLOOD UREA NITROGEN 39 MG/DL (7-18); CALCIUM LEVEL 8.4 MG/DL (8.8-10.2); CARBON DIOXIDE LEVEL 37 MEQ/L (21-32); CHLORIDE LEVEL 92 MEQ/L (98-107); CREATININE FOR GFR 0.88 MG/DL (0.55-1.02); GLOMERULAR FILTRATION RATE > 60.0 (>32); GLUCOSE, FASTING 165 MG/DL (83-110); MAGNESIUM LEVEL 1.9 MG/DL (1.8-2.4); POTASSIUM SERUM 4.2 MEQ/L (3.5-5.1); SODIUM LEVEL 136 MEQ/L (136-145)
[2016-05-22] MEDS: FUROSEMIDE 20 MG TAB PO SCH (10:54)
[2016-05-22] MEDS: LISINOPRIL 5 MG TAB PO SCH (10:55)
[2016-05-22] MEDS: METOPROLOL TART 50 MG TAB PO SCH ×2 (10:55→20:54)
[2016-05-22] MEDS: SPIRONOLACTONE 25 MG TAB PO SCH (10:55)
[2016-05-22] MEDS: RESTASIS (PATIENT'S OWN MED) OU SCH (10:56)
[2016-05-22] MEDS: LACTOBACILLUS ACIDOPHILUS CAP (BACID) PO SCH ×2 (11:03→18:09)
[2016-05-22] MEDS: MAGNESIUM CHLORIDE 64 MG TABCR (SLO MAG) PO SCH (11:04)
[2016-05-22] MEDS: GABAPENTIN 100 MG CAP PO SCH ×2 (11:04→20:54)
[2016-05-22] MEDS: POTASSIUM CHLORIDE 10 MEQ SR TABLET PO SCH ×2 (11:04→18:10)
[2016-05-22] MEDS: FLUoxetine 10 MG CAP PO SCH (11:04)
[2016-05-22 14:00] VITALS: BP 130/69
--- NOTE | 2016-05-22 17:31 | IPN ---
DATE: 05/22/2016 TIME PATIENT SEEN: This afternoon at 14:13 Patient seen and examined at bed side. No acute events overnight. Patient has been breathing better today and patient is more alert as well. According to patient's daughter she is working with PT for possible rehabilitation. However during morning meeting the plan is possible placement is also on the table. Otherwise patient denies any chest pain, trouble breathing, abdominal pain, nausea, diarrhea, constipation. PHYSICAL EXAMINATION: Vital signs: Temperature was 97, pulse 95, respiration 18, blood pressure 130/69, oxygen saturation 94% on 1 liter nasal cannula. GENERAL: Patient is an elderly female who was alert, awake and oriented times one. Does not appear to be in distress, resting comfortably in bed with head elevated at 30 degrees. HEENT: Normocephalic, atraumatic. Extraocular motor intact. Mucous moist. Neck supple. No neck lymphadenopathy. CARDIOVASCULAR: Irregularly irregular. S1, S2. LUNGS: Slight diffuse wheezing and rales bilaterally. ABDOMEN: Positive bowel sounds. Soft, non-tender, non-distended, no peritoneal signs. No ecchymosis. EXTREMITIES: No edema, clubbing or cyanosis. SKIN: Warm and dry. NEURO: Cranial nerves II through XII intact. No focal neurologic deficit. LABORATORY DATA: WBC 19.2, hemoglobin 14.6, hematocrit 42.6 with a platelet count of 173. MCV 100.6. Sodium 136, potassium 4.2, chloride 92, bicarbonate 37, BUN 39, creatinine 0.88. Glomerular filtration rate (GFR) greater than 60. Fasting glucose 165, calcium 8.4, magnesium 1.9, CRP less than 0.3. Patient's coag shows PT of 30.3, INR 3.14. No new culture. No new imaging. ASSESSMENT AND PLAN: 80-year-old female with past medical history of chronic obstructive pulmonary disease. Noncompliant with oxygen at home. Atrial fibrillation on Warfarin, hypertension, coronary artery disease status post stent placement, skin cancer, cerebral vascular accident, diverticulitis, peripheral neuropathy presented with: 1. Shortness of breath after choking on food with wheezing. Admitted for chronic obstructive pulmonary disease exacerbation. Also possible pneumonia. Rocephin has been discontinued today, switch to by mouth Augmentin. Continue Solu-Medrol which has been tapered down to 30 mg every 12 hours and will continue Duo Nebs and nebulizer. 2. Possible fluid overload resolved possibly secondary to side effect from Prednisone. Echocardiogram shows concentric left ventricular hypertrophy with hyperkinetic wall motion. Continue low dose Lasix. 3. Atrial fibrillation with RVR. RVR has resolved. Warfarin has been on hold due to supra therapeutic INR. 4. Supra therapeutic INR. Continue to hold Warfarin today. 5. Urinary retention required Brand. Currently no issues. 6. Chronic obstructive pulmonary disease exacerbation. Continue to taper steroids. IV antibiotics has been switched to by mouth Augmentin. Continue Acapella. 7. Possible pneumonia secondary to aspiration resolved. 8. Ascending aortic aneurysm measuring 4.6 cm in diameter. Will leave decision to primary care provider regarding vascular surgery consult. According to patient's daughter patient did not undergo peripheral arterial procedure due to prolonged function. 9. Hypertensive urgency. Resolved. 10. History of hypertension. Continue metoprolol, lisinopril and spironolactone. 11. Hyperkalemia. Continue supplements. 12. Lactic acidosis improved. 13. Coronary artery disease status post stent placement, stable. 14. History of skin cancer. Continue to monitor. 15. History of cerebrovascular accident (CVA). Continue to monitor. 16. Peripheral neuropathy and peripheral vascular disease stable. Continue to monitor. Patient was found not to be a surgical candidate outpatient. 17. Lower extremity edema. Continue low-dose Lasix. 18. Dementia appears to be worsened compared to baseline at home per patient's daughter. 19. Deep vein thrombosis prophylaxis. Warfarin continued to be on hold due to supra therapeutic INR. DISPOSITION: Patient's daughter requested rehabilitation currently working with [facility] regarding possible rehabilitation or placement. Patient has been discussed with attending doctor Dr. Da Silva. My preceptor for this patient encounter was Dr. Marty Da Silva. The preceptor was physically present in the building during the encounter and was fully available as needed. All aspects of the patient interview, examination, medical decision making process, and medical care plan development were reviewed and approved by the preceptor. The preceptor is aware and concurs with the plan as stated in the body of this note and will attest to such by his/her co-signature.
[2016-05-22] MEDS: AUGMENTIN 500 MG TAB PO SCH ×2 (18:09→23:12)
[2016-05-22] MEDS: ATORVASTATIN 10 MG TAB PO SCH (20:53)
[2016-05-22 22:00] VITALS: BP 152/91
[2016-05-23] MEDS: IPRATROPIUM 0.5MG/ALBUTEROL 2.5MG INH SOL UD 3ML (DUONEB)(J7620) NEB SCH ×4 (01:25→19:53)
[2016-05-23] MEDS: methylPREDNISolone INJ 40 MG/1 ML VIAL (J2920) IV SCH ×2 (05:28→17:36)
[2016-05-23 06:00] VITALS: BP 142/85
[2016-05-23] MEDS: FORMOTEROL FUMARATE 20 MCG/2 ML INHALATION SOLUTION (PERFOROMIST) INH SCH ×2 (06:05→19:52)
[2016-05-23] MEDS: BUDESONIDE 0.25 MG/2 ML INHALATION SUSPENSION INH SCH ×2 (06:05→19:53)
[2016-05-23 06:51] LABS: MEAN CORPUSCULAR HEMOGLOBIN 34.1 pg (27.0-33.0); MEAN CORPUSCULAR HGB CONC 33.7 g/dl (32.0-36.5); MEAN CORPUSCULAR VOLUME 101.2 fl (80.0-96.0); RED CELL DISTRIBUTION WIDTH 11.5 % (11.5-14.5); WHITE BLOOD COUNT 21.9 K/mm3 (4.0-10.0)
[2016-05-23 06:57] LABS: INR 2.41
[2016-05-23 07:04] LABS: CALCIUM LEVEL 8.4 MG/DL (8.8-10.2); CREATININE FOR GFR 0.96 MG/DL (0.55-1.02); GLOMERULAR FILTRATION RATE 58.5 (>32); MAGNESIUM LEVEL 1.9 MG/DL (1.8-2.4); POTASSIUM SERUM 4.7 MEQ/L (3.5-5.1)
[2016-05-23] MEDS: POTASSIUM CHLORIDE 10 MEQ SR TABLET PO SCH ×2 (10:55→17:36)
[2016-05-23] MEDS: MAGNESIUM CHLORIDE 64 MG TABCR (SLO MAG) PO SCH (10:55)
[2016-05-23] MEDS: SPIRONOLACTONE 25 MG TAB PO SCH (10:55)
[2016-05-23] MEDS: LACTOBACILLUS ACIDOPHILUS CAP (BACID) PO SCH ×2 (10:55→17:35)
[2016-05-23] MEDS: FUROSEMIDE 20 MG TAB PO SCH (10:56)
[2016-05-23] MEDS: AUGMENTIN 500 MG TAB PO SCH ×3 (10:56→23:58)
[2016-05-23] MEDS: LISINOPRIL 5 MG TAB PO SCH (10:56)
[2016-05-23] MEDS: FLUoxetine 10 MG CAP PO SCH (10:57)
[2016-05-23] MEDS: METOPROLOL TART 50 MG TAB PO SCH ×2 (10:57→20:29)
[2016-05-23] MEDS: GABAPENTIN 100 MG CAP PO SCH ×2 (10:57→20:29)
[2016-05-23] MEDS: RESTASIS (PATIENT'S OWN MED) OU SCH (10:57)
[2016-05-23] MEDS: ONDANSETRON 4MG/2ML VIAL (J2405) IV PRN (12:05)
[2016-05-23 14:00] VITALS: BP 138/78
--- NOTE | 2016-05-23 15:34 | ECGEPIP ---
Stationary ECG Study [facility] Test Date: 2016-05-23 Pat Name: SANDRA DUNLAP Department: Room: H3223-86 Gender: F [employer] Teacher: DOLORES : 1930 Requested By: MICHAEL KAISER Order Number: [id number] Reading MD: Bernardino Garvin Measurements Intervals [place] Rate: 84 P: NM: 0 QRS: 79 QRSD: 81 T: 8 QT: 369 QTc: 439 Interpretive Statements ATRIAL FIBRILLATION, Nonspecific T-wave abnormalities. Decreased heart rate and improved repolarization compared with 05/14/2016. Electronically Signed On 05-23-2016 15:34:48 EST by Bernardino Garvin
--- NOTE | 2016-05-23 15:38 | REP ---
AP portable sitting chest radiograph 05/23/2016 Indication: severe chest pain Comparison: Portable chest 05/20/2016, 05/15/2016, CTA chest 05/11/2016 Findings: The cardiac silhouette is mild to moderately enlarged, with left atrial and ventricular enlargement. There are moderate atherosclerotic changes within the ectatic and or mildly aneurysmal thoracic aorta. There is a left epicardial fat pad. There are least two calcified granulomas within the left base. Impression: Persistent mild to moderate cardiomegaly with evidence of left atrial and left ventricular enlargement. Moderate atherosclerotic changes in the ectatic and /or mildly aneurysmal thoracic aorta. Old granulomatous disease. Signed by Madonna Pino MD 05/23/2016 03:29 P
[2016-05-23] MEDS: WARFARIN SOD 2 MG TAB PO SCH (17:36)
--- NOTE | 2016-05-23 18:22 | IPN ---
DATE: 05/23/2016 TIME SEEN: 909 SUBJECTIVE: The patient has been seen and examined at bedside. The patient had an episode of chest pain while sitting in the recliner talking with the patient's daughter. She stated the pain was sharp and it was on the right side. However, the patient could not go into detail due to dementia if it went away on its own without intervention. Electrocardiogram (EKG) did not show any significant ST-T wave changes compared to prior EKG, and the chest x-ray and the cardiac marker was negative. Otherwise, the patient denies any fever or chills, any abdominal pain, nausea, vomiting, diarrhea, constipation, or any problem with urination. PHYSICAL EXAMINATION: VITAL SIGNS: Temperature 96.4, pulse 89, respirations 17, blood pressure 142/85. Oxygen saturating 95% on one liter. GENERAL: The patient is a thin-looking elderly female who was alert, awake, oriented to herself only. Does not appear to be in distress. Resting comfortably in bed with head elevated at 30 degrees. HEENT: Normocephalic, atraumatic. Extraocular motor intact. Mucus moist. NECK: Supple. No neck lymphadenopathy. CARDIOVASCULAR: Irregularly irregular S1, S2. LUNGS: Show slight wheezing bilaterally. ABDOMEN: Positive bowel sounds. Soft, nontender. There are no peritoneal signs. No ecchymosis. EXTREMITIES: Trace pitting edema bilaterally. SKIN: Warm and dry. NEUROLOGIC: Cranial nerves II through XII intact. No focal neurologic deficit. LABORATORY DATA: WBC 21.9, hemoglobin 15.4, hematocrit 45.6, with platelet count of 205 and MCV of 101.2. Sodium 133, potassium 4.7, chloride 90, bicarbonate 38, BUN 34, creatinine 0.96, GFR was 58.5, fasting glucose 147, calcium 8.4, magnesium 1.9. Total CK 51, CK-MB 2.3. Troponin was 0.04. Coagulation shows PT 26.3, INR 2.41. MICROBIOLOGY: No new cultures. IMAGING: The patient had a one-view chest x-ray this morning, shows a persistent mild to moderate cardiomegaly with evidence of left atrial and left ventricular enlargement, moderate atherosclerotic changes in the ectatic and/or mild aneurysmal thoracic aorta. EKG this morning shows atrial fibrillation, nonspecific T-wave abnormality, decreased heart rate, improved repolarization compared to 05/14/2016. ASSESSMENT AND PLAN: An 81-year-old female with past medical history of chronic obstructive pulmonary disease (COPD), noncompliant with home oxygen, atrial fibrillation on warfarin, hypertension, coronary artery disease status post stent placement, skin cancer, cerebrovascular accident (CVA), diverticulitis, peripheral neuropathy, who presented with: 1. Shortness of breath after choking on food and wheezing, admitted for chronic obstructive pulmonary disease exacerbation and possible pneumonia. Rocephin was discontinued two days ago and switched to Augmentin. The patient's Solu-Medrol has been discontinued today and has been started on oral dexamethasone taper. In addition, the patient's lung sounds have improved. We will continue to monitor. 2. Atypical chest pain with right-sided chest pain started this morning while taking with the patient's daughter while sitting up in a chair. The pain resolved on its own without intervention. The patient's EKG did not show any ST-T wave abnormalities and did not change significantly compared to prior EKG. Chest x-ray was negative as well. The patient's chest pain was likely noncardiac and possibly musculoskeletal. We will continue to monitor. We will trend the patient's cardiac markers one more set. 3. Possible fluid overload, resolved, possibly secondary to side effect of prednisone. Echocardiogram shows concentric left ventricular hypertrophy with hyperkinetic wall motion. Continue low-dose Lasix. 4. Atrial fibrillation with rapid ventricular response (RVR). RVR has resolved. Warfarin was on hold due to supratherapeutic international normalized ratio (INR). We will continue the patient on warfarin 2 mg by mouth every 48 hours for now and continue to trend INR. 5. Supratherapeutic international normalized ratio, resolved. Continue Warfarin. 6. Urinary retention required Brand, which has resolved. Brand has been discontinued. 7. Chronic obstructive pulmonary disease (COPD) exacerbation. Continue to taper steroid. IV steroid has been converted to oral dexamethasone. The patient cannot tolerate her prednisone. Continue Acapella. 8. Possible pneumonia. The patient has been switched to oral Augmentin. 9. Ascending aortic aneurysm measuring 4.6 cm in diameter. The patient was found to be a poor operative candidate in the past. Will leave decision for possible followup to primary provider. 10. Hypertensive urgency, resolved. 11. History of hypertension. Continue metoprolol, lisinopril and spironolactone. 12. Hypokalemia. Continue supplements. 13. Lactic acidosis, improved. 14. Coronary artery disease status post stent placement. Stable. 15. History of skin cancer. Continue to monitor. 16. History of cerebrovascular accident (CVA). Continue to monitor. 17. Peripheral neuropathy with peripheral vascular disease, currently stable. The patient was found to be a nonsurgical candidate in the past. 18. Lower extremity edema. Continue low-dose Lasix. 19. Worsening dementia, possibly secondary to the patient's current illness and, also she has been bed-bound for more than a week. 20. Deep venous thrombosis (DVT) prophylaxis. We will continue warfarin. DISPOSITION: The patient's daughter requested rehabilitation, currently working with patient [facility] family services ([facility]). We will followup with the result. The patient has been discussed with attending doctor, Dr. Da Silva. My preceptor for this patient encounter was Dr. Marty Da Silva. The preceptor was physically present in the building during the encounter and was fully available as needed. All aspects of the patient interview, examination, medical decision making process, and medical care plan development were reviewed and approved by the preceptor. The preceptor is aware and concurs with the plan as stated in the body of this note and will attest to such by his/her co-signature.
[2016-05-23] MEDS: ATORVASTATIN 10 MG TAB PO SCH (20:29)
[2016-05-23 22:00] VITALS: BP 143/88
[2016-05-24] MEDS: IPRATROPIUM 0.5MG/ALBUTEROL 2.5MG INH SOL UD 3ML (DUONEB)(J7620) NEB SCH ×4 (00:45→19:58)
[2016-05-24] MEDS: methylPREDNISolone INJ 40 MG/1 ML VIAL (J2920) IV SCH ×2 (05:36→16:58)
[2016-05-24 06:00] VITALS: BP 160/80
[2016-05-24 06:14] LABS: MEAN CORPUSCULAR HEMOGLOBIN 33.6 pg (27.0-33.0); MEAN CORPUSCULAR HGB CONC 33.6 g/dl (32.0-36.5); RED CELL DISTRIBUTION WIDTH 11.4 % (11.5-14.5); WHITE BLOOD COUNT 16.7 K/mm3 (4.0-10.0)
[2016-05-24 06:20] LABS: INR 2.23
[2016-05-24 06:26] LABS: ANION GAP 6 MEQ/L (8-16); BLOOD UREA NITROGEN 37 MG/DL (7-18); CALCIUM LEVEL 8.5 MG/DL (8.8-10.2); CARBON DIOXIDE LEVEL 34 MEQ/L (21-32); CHLORIDE LEVEL 94 MEQ/L (98-107); CREATININE FOR GFR 0.98 MG/DL (0.55-1.02); GLOMERULAR FILTRATION RATE 57.2 (>32); GLUCOSE, FASTING 162 MG/DL (83-110); POTASSIUM SERUM 4.8 MEQ/L (3.5-5.1); SODIUM LEVEL 134 MEQ/L (136-145)
[2016-05-24] MEDS: FORMOTEROL FUMARATE 20 MCG/2 ML INHALATION SOLUTION (PERFOROMIST) INH SCH ×2 (08:00→19:58)
[2016-05-24] MEDS: BUDESONIDE 0.25 MG/2 ML INHALATION SUSPENSION INH SCH ×2 (08:00→19:58)
[2016-05-24] MEDS: RESTASIS (PATIENT'S OWN MED) OU SCH (10:42)
[2016-05-24] MEDS: MAGNESIUM CHLORIDE 64 MG TABCR (SLO MAG) PO SCH (10:43)
[2016-05-24] MEDS: FUROSEMIDE 20 MG TAB PO SCH (10:44)
[2016-05-24] MEDS: LISINOPRIL 5 MG TAB PO SCH (10:44)
[2016-05-24] MEDS: POTASSIUM CHLORIDE 10 MEQ SR TABLET PO SCH (10:44)
[2016-05-24] MEDS: SPIRONOLACTONE 25 MG TAB PO SCH (10:44)
[2016-05-24] MEDS: AUGMENTIN 500 MG TAB PO SCH ×2 (10:45→16:58)
[2016-05-24] MEDS: GABAPENTIN 100 MG CAP PO SCH ×2 (10:45→20:50)
[2016-05-24] MEDS: METOPROLOL TART 50 MG TAB PO SCH ×2 (10:45→20:54)
[2016-05-24] MEDS: FLUoxetine 10 MG CAP PO SCH (10:46)
[2016-05-24] MEDS: LACTOBACILLUS ACIDOPHILUS CAP (BACID) PO SCH ×2 (10:46→16:58)
[2016-05-24] MEDS: IPRATROPIUM 0.5MG/ALBUTEROL 2.5MG INH SOL UD 3ML (DUONEB)(J7620) NEB PRN (12:03)
[2016-05-24 14:00] VITALS: BP 116/62
[2016-05-24] MEDS: ATORVASTATIN 10 MG TAB PO SCH (20:51)
--- NOTE | 2016-05-24 22:02 | IPN ---
DATE: 05/24/2016 TIME PATIENT WAS SEEN: This morning at 10. Patient has been seen and examined at bedside. No acute events overnight. Patient was in the room by herself this morning, and she was also severely demented. Could not give me any good answers; however, she kept saying that she would like more air; however, it does not appear that she is in distress. Patient could not provide any other meaningful information. PHYSICAL EXAMINATION: VITAL SIGNS: Temperature 97.8, pulse 80, respirations 18, blood pressure 160/80, oxygen saturation 94% on 0.5 liters nasal cannula. GENERAL: Patient is a thin-looking elderly female who was alert, awake, oriented to herself only. Does not appear to be in distress. Resting comfortably in bed with head elevated at 60 degrees. HEENT: Normocephalic, atraumatic. Extraocular motor intact. Mucosa moist. NECK: Supple. No neck lymphadenopathy. CARDIOVASCULAR: Irregularly irregular, S1, S2. Difficult to auscultate due to increased anterior-posterior (AP) diameter. LUNGS: Slight wheezing bilaterally. ABDOMEN: Positive bowel sounds, soft, nontender, nondistended. No peritoneal signs. No ecchymosis. EXTREMITIES: No edema, clubbing, or cyanosis. SKIN: Warm and dry. NEUROLOGIC: Cranial nerves II-XII intact. No focal neurological deficit. LABORATORY DATA: WBC 16.7, hemoglobin 14.7 with hematocrit 43.6, and MCV was 100. Platelet count was 183. Sodium 134, potassium 3.8, bicarbonate 34, BUN was 37, creatinine 0.98, GFR 57.2, calcium 8.5, magnesium 2. CRP less than 0.3. Patient's INR today is 2.23. PT was 24.8. No new cultures. No new imaging. ASSESSMENT AND PLAN: An 81-year-old female with past medical history of chronic obstructive pulmonary disease (COPD), noncompliant with home oxygen, atrial fibrillation, on warfarin, hypertension, COPD status post stent placement, skin cancer, cerebrovascular accident (CVA), diverticulitis, peripheral neuropathy who presented with: 1. Shortness of breath after choking on food and wheezing, admitted for COPD exacerbation, which has improved significantly. Intravenous (IV) antibiotic has been switched to Augmentin. Solu-Medrol was also switched to dexamethasone. Lung sounds have improved today. 2. Atypical chest pain, resolved. 3. Possible fluid overload, resolved. Possible side effects of prednisone. Echocardiogram did show concentric left ventricular hypertrophy with hyperkinetic wall motion. Continue low-dose Lasix. 4. Atrial fibrillation with rapid ventricular response (RVR), resolved. 5. Supratherapeutic INR, resolved. Continue warfarin. 6. Urinary retention, which has resolved. Brand has been discontinued. 7. COPD exacerbation, improved, tapering oral steroid currently. Continue Acapella. 8. Possible pneumonia. Switch to by mouth Augmentin. 9. Ascending aortic aneurysm, measuring 4.6 cm. Patient was found to be a poor operative candidate in the past. Will leave decision for possible followup to primary care provider. 10. Hypertensive urgency, resolved. 11. History of hypertension. Continue metoprolol, lisinopril, and also recently added spironolactone. 12. Hypokalemia. Continue supplements. Today patient's potassium is trending down. Potassium was discontinued. Will check again next Friday. 13. Lactic acidosis, improved. 14. Coronary artery disease, status post stent placement, stable. 15. History of skin cancer. Continue to monitor. 16. History of CVA. Continue to monitor. 17. Peripheral neuropathy. Also peripheral vascular disease, stable. 18. Lower extremity edema. Continue low-dose Lasix. 19. Worsening dementia, likely secondary to current illness. Patient has been bed-bound for a week. 20. Deep vein thrombosis (DVT) prophylaxis. Continue warfarin. DISPOSITION: Patient's daughter requested rehabilitation. Patient is in process for placement. Will continue to monitor placement. Will retirement facility ([facility]) patient today. Patient has been discussed with attending doctor, Dr. Da Silva. My preceptor for this patient encounter was Dr. Marty Da Silva. The preceptor was physically present in the building during the encounter and was fully available as needed. All aspects of the patient interview, examination, medical decision making process, and medical care plan development were reviewed and approved by the preceptor. The preceptor is aware and concurs with the plan as stated in the body of this note and will attest to such by his/her co-signature.
[2016-05-25] MEDS: IPRATROPIUM 0.5MG/ALBUTEROL 2.5MG INH SOL UD 3ML (DUONEB)(J7620) NEB SCH ×4 (00:41→19:31)
[2016-05-25] MEDS: methylPREDNISolone INJ 40 MG/1 ML VIAL (J2920) IV SCH (05:52)
[2016-05-25 06:00] VITALS: BP 111/78
[2016-05-25] MEDS: AUGMENTIN 500 MG TAB PO SCH ×2 (08:00)
[2016-05-25] MEDS: LACTOBACILLUS ACIDOPHILUS CAP (BACID) PO SCH ×3 (08:00→16:40)
[2016-05-25] MEDS: FORMOTEROL FUMARATE 20 MCG/2 ML INHALATION SOLUTION (PERFOROMIST) INH SCH ×2 (08:44→19:31)
[2016-05-25] MEDS: BUDESONIDE 0.25 MG/2 ML INHALATION SUSPENSION INH SCH ×2 (08:44→19:31)
[2016-05-25] MEDS: SPIRONOLACTONE 25 MG TAB PO SCH (09:00)
[2016-05-25] MEDS: MAGNESIUM CHLORIDE 64 MG TABCR (SLO MAG) PO SCH (09:00)
[2016-05-25] MEDS: FLUoxetine 10 MG CAP PO SCH (09:00)
[2016-05-25] MEDS: RESTASIS (PATIENT'S OWN MED) OU SCH (09:00)
[2016-05-25] MEDS: FUROSEMIDE 20 MG TAB PO SCH (09:00)
[2016-05-25] MEDS: GABAPENTIN 100 MG CAP PO SCH ×2 (09:00→20:56)
[2016-05-25] MEDS: METOPROLOL TART 50 MG TAB PO SCH ×2 (09:09→20:56)
[2016-05-25] MEDS: LISINOPRIL 5 MG TAB PO SCH (09:10)
[2016-05-25 15:24] LABS: ALDOSTERONE 1.9 ng/dL (0.0-30.0)
[2016-05-25] MEDS: IPRATROPIUM 0.5MG/ALBUTEROL 2.5MG INH SOL UD 3ML (DUONEB)(J7620) NEB PRN (16:19)
[2016-05-25] MEDS: WARFARIN SOD 2 MG TAB PO SCH (16:40)
[2016-05-25] MEDS: ATORVASTATIN 10 MG TAB PO SCH (20:56)
[2016-05-25 22:00] VITALS: BP 120/83
[2016-05-25] MEDS: ACETAMINOPHEN TAB 650MG DOSE (2X325MG) PO PRN (22:39)
[2016-05-26] MEDS: IPRATROPIUM 0.5MG/ALBUTEROL 2.5MG INH SOL UD 3ML (DUONEB)(J7620) NEB SCH ×5 (02:00→23:21)
[2016-05-26 06:00] VITALS: BP 124/72
[2016-05-26] MEDS: FORMOTEROL FUMARATE 20 MCG/2 ML INHALATION SOLUTION (PERFOROMIST) INH SCH ×2 (07:59→20:05)
[2016-05-26] MEDS: BUDESONIDE 0.25 MG/2 ML INHALATION SUSPENSION INH SCH ×2 (07:59→20:05)
[2016-05-26] MEDS: MAGNESIUM CHLORIDE 64 MG TABCR (SLO MAG) PO SCH ×2 (09:00→09:37)
[2016-05-26] MEDS: GABAPENTIN 100 MG CAP PO SCH ×3 (09:00→20:55)
[2016-05-26] MEDS: FLUoxetine 10 MG CAP PO SCH ×2 (09:00→09:36)
[2016-05-26] MEDS: METOPROLOL TART 50 MG TAB PO SCH ×2 (09:36→20:56)
[2016-05-26] MEDS: FUROSEMIDE 20 MG TAB PO SCH (09:36)
[2016-05-26] MEDS: LISINOPRIL 5 MG TAB PO SCH (09:36)
[2016-05-26] MEDS: LACTOBACILLUS ACIDOPHILUS CAP (BACID) PO SCH ×3 (09:36→17:11)
[2016-05-26] MEDS: SPIRONOLACTONE 25 MG TAB PO SCH (09:37)
[2016-05-26] MEDS: RESTASIS (PATIENT'S OWN MED) OU SCH (09:37)
[2016-05-26] MEDS ORDERED: MAALOX 30 ML SUSP *UDC PO PRN (12:30)
[2016-05-26] MEDS: IPRATROPIUM 0.5MG/ALBUTEROL 2.5MG INH SOL UD 3ML (DUONEB)(J7620) NEB PRN (15:33)
[2016-05-26] MEDS: ACETAMINOPHEN TAB 650MG DOSE (2X325MG) PO PRN (20:55)
[2016-05-26] MEDS: ATORVASTATIN 10 MG TAB PO SCH (20:56)
[2016-05-27 06:00] VITALS: BP 145/87
[2016-05-27 06:11] LABS: INR 3.42
[2016-05-27] MEDS: IPRATROPIUM 0.5MG/ALBUTEROL 2.5MG INH SOL UD 3ML (DUONEB)(J7620) NEB SCH (07:11)
[2016-05-27] MEDS: BUDESONIDE 0.25 MG/2 ML INHALATION SUSPENSION INH SCH (07:11)
[2016-05-27] MEDS: FORMOTEROL FUMARATE 20 MCG/2 ML INHALATION SOLUTION (PERFOROMIST) INH SCH (07:11)
[2016-05-27] MEDS: LACTOBACILLUS ACIDOPHILUS CAP (BACID) PO SCH ×2 (08:00→08:43)
[2016-05-27] MEDS: RESTASIS (PATIENT'S OWN MED) OU SCH (08:43)
[2016-05-27] MEDS: SPIRONOLACTONE 25 MG TAB PO SCH ×2 (08:43→08:48)
[2016-05-27] MEDS: MAGNESIUM CHLORIDE 64 MG TABCR (SLO MAG) PO SCH (08:43)
[2016-05-27] MEDS: GABAPENTIN 100 MG CAP PO SCH ×2 (08:43→08:49)
[2016-05-27] MEDS: METOPROLOL TART 50 MG TAB PO SCH ×2 (08:43→08:48)
[2016-05-27] MEDS: FLUoxetine 10 MG CAP PO SCH ×2 (08:43→08:49)
[2016-05-27] MEDS: LISINOPRIL 5 MG TAB PO SCH ×2 (08:44→08:49)
[2016-05-27] MEDS: FUROSEMIDE 20 MG TAB PO SCH ×2 (08:44→08:48)
[2016-05-27 08:48] VITALS: BP 140/72
[2016-05-27] MEDS ORDERED: ALDA25TA2 PO (09:17)
[2016-05-27] MEDS ORDERED: COUM2TAB10 PO (09:17)
[2016-05-27] MEDS ORDERED: DEXA1TA PO (09:17)
[2016-05-27] MEDS ORDERED: FURO20TA2 PO (09:17)
[2016-05-27] MEDS ORDERED: LISI-542 PO (09:17)
[2016-05-27] MEDS ORDERED: PERF20NE2 INH (09:17)
[2016-05-27 11:21] LABS: MEAN CORPUSCULAR HEMOGLOBIN 33.8 pg (27.0-33.0); MEAN CORPUSCULAR HGB CONC 33.4 g/dl (32.0-36.5); MEAN CORPUSCULAR VOLUME 101.3 fl (80.0-96.0); RED CELL DISTRIBUTION WIDTH 12.4 % (11.5-14.5)
[2016-05-27 11:47] LABS: CALCIUM LEVEL 8.4 MG/DL (8.8-10.2); GLOMERULAR FILTRATION RATE 55.8 (>32); POTASSIUM SERUM 4.3 MEQ/L (3.5-5.1)
[2016-05-27] MEDS ORDERED: ENSULIQ2 PO (11:49)
--- NOTE | 2016-05-27 15:07 | DSES ---
DATE OF ADMISSION: 05/11/2016 DATE OF DISCHARGE: 05/27/2016 ADMISSION DIAGNOSES: 1. Shortness of breath secondary to chronic obstructive pulmonary disease (COPD) exacerbation. 2. Hypertensive urgency. 3. Acute kidney injury. 4. Incidental finding of ascending aortic aneurysm measuring 4.[address] diameter on CT. 5. Atrial fibrillation, on warfarin. 6. Coronary artery disease, status post stent placement. 7. History of hypertension. 8. History of skin cancer. 9. Recurrent stroke. 10. Chronic kidney disease, stage 3. 11. Peripheral neuropathy. 12. Lower extremity edema. DISCHARGE DIAGNOSES: 1. Shortness of breath secondary to choking on food and wheezing. Possible COPD exacerbation. 2. Atypical chest pain, resolved. 3. Possible congestive heart failure (CHF) exacerbation. 4. Possible fluid overload from side effects of prednisone. 5. Atrial fibrillation with rapid ventricular response (RVR) resolved. 6. Supratherapeutic INR. 7. Urinary retention. 8. COPD exacerbation. 9. Possible pneumonia. 10. Ascending aortic aneurysm measuring 4.6 cm. The patient's family refused the possible procedure due to patient was poor operative candidate. Possibly need operation followup if patient agrees with the procedure again. 11. Hypertensive urgency, resolved. 12. Hypokalemia. 13. Lactic acidosis. 14. Worsening dementia. 15. The same as admission diagnoses. CONSULTANTS AND PROCEDURES: None. PROCEDURES AND IMAGING: The patient had an echocardiogram on May 13, 2016. Showed patient has borderline concentric left ventricular hypertrophy with hyperkinetic wall motion , mild to moderately dilated left atrium with evidence of elevated mean left atrial pressure. Mildly dilated right ventricle with evidence of severe pulmonary hypertension. Also mild to moderately dilated right atrium and inferior vena cava, and evidence of no more than mild elevated central venous pressure. Aortic valvular sclerosis without stenosis. Only mild insufficiency. Degenerative changes of mitral valvular apparatus without inflow tract obstruction but moderate eccentric insufficiency. The patient had a CT angio of the chest 05/11/2016 which shows no evidence of pulmonary embolism (PE), however, there was an ascending aortic aneurysm measuring 4.6 cm and cardiomegaly, pulmonary hypertension, bibasilar atelectasis , and segmental atelectasis, lingular and evaluate to exclude superimposed infection. The patient also had an MRI of the brain on May 18, 2016. It shows the study within normal limits and the patient refused further testing for MRI of the brain. HISTORY OF PRESENT ILLNESS: 85-year-old female with past medical history of atrial fibrillation on warfarin, hypertension, coronary artery disease, status post stent placement, skin cancer, stroke, diverticulitis, chronic kidney disease, peripheral neuropathy and severe COPD presented with shortness of breath, started one week before admission. Per patient's family she choked on a piece of possibly chicken and after that started wheezing. However, the patient denies any fever or chills, denies any cough or sputum production. She does admit to swollen feet started a few weeks ago which has been worse than at her baseline. Otherwise she also denies any chest pain, any abdominal pain, any nausea, vomiting, diarrhea, constipation or any blood in the urine or stool. HOSPITAL COURSE: On the day of admission, the patient was started on DuoNebs and Solu-Medrol as well as Rocephin and azithromycin for possible pneumonia shown on CT. She was also found to have an aortic aneurysm measuring 4.[address] chest and the patient's daughter stated that she was not an operative candidate for her lower extremity procedures. Therefore, they would not consider any vascular surgery consultation currently and over the next few days, the patient's condition did not improve significantly and the swelling in the lower extremity also did not improve. The patient was placed on Lasix and steroid dose were increased again and consistently her condition did not improve, however, in the next few days. Then, the patient's daughter has expressed to us that the patient was actually considering Hospice outpatient and she was in process of attending Hospice with her primary care provider and she does have severe COPD outpatient, likely end-stage which was not presented to the emergency room physician and also that she was on oxygen two years ago, however, the patient was not compliant with oxygen at home and therefore Hospice was consulted and the patient's daughter also would like placement. Then over the next few days, the patient's daughter does not want placement any more. Therefore, on May 27, 2015, the patient was discharged home on home care and per patient's daughter she would like to have home healthcare first, then if patient does not improve she will then consider Hospice again with primary care provider. DISCHARGE CONDITION: Improved. Stable. ACTIVITY: As tolerated. DIET: COPD diet. Also 2 liters of fluid restriction. 2 grams of sodium. DISCHARGE MEDICATIONS: New medications including: - dexamethasone 1 mg by mouth daily for two days - Ensure 1 by mouth twice a day - Perforomist 20 mcg inhalation twice a day - Lasix 20 mg one tablet by mouth daily - lisinopril 5 mg one tablet by mouth daily - spironolactone 25 mg one tablet by mouth daily - warfarin 1.5 mg one tablet by mouth every 48 hours. Will start May 29, 2016. Continue home medications including: - DuoNeb every 4 hours as needed - atorvastatin 10 mg one tablet by mouth nightly - budesonide 0.25 mg one inhalation twice a day - fluoxetine 10 mg one tablet by mouth daily - gabapentin 100 mg one tablet by mouth twice a day - indapamide 1.25 mg one tablet by mouth day - magnesium one tablet by mouth every day - metoprolol succinate 50 mg one tablet by mouth daily - potassium 10 mEq by mouth every day - Senna 8.6 mg one tablet by mouth every day Stopped medication including: - amlodipine 5 mg one tablet by mouth every day - lisinopril 14 mg one tablet by mouth nightly - warfarin 2 mg one tablet by mouth five times a week FOLLOWUP: The patient should followup with primary care provider within one week regarding possible Hospice in the future as well as monitoring patient's INR due to patient has been supratherapeutic in the hospital. Also her warfarin was adjusted. In addition, the patient should followup with primary care provider regarding potassium level, which was initially hypokalemia. Additional instruction: If patient develops increased trouble breathing or having fever greater than 100.4, or having altered mental status the patient should call primary care provider or go to the emergency room. The patient has been discussed with attending doctor, Dr. De León. My preceptor for this patient encounter was Dr. Zuly De León. The preceptor was physically present in the building during the encounter and was fully available. As needed, all aspects of the patient interview, examination, medical decision making process, and medical care plan development were reviewed and approved by the preceptor. The preceptor is aware and concurs with the plan as stated in the body of this note and will attest to such by his/her cosignature. I have both independently examined this patient as well as reviewed the note. I have discussed in detail with the resident the findings and plan of treatment as documented in the residents note. I will continue to follow the patient and offer further guidance to the patients care as necessary during this hospital stay. Zuly FRANKLIN
== END 2016-05-27 12:12 | disposition home health service (06) | DRG 190 ==
LOC: M ED 03:40 → M ED INP 07:03 → M MS5PR 08:33 → M MSPAV 05-14 15:45
PROVIDERS: ADMIT General Practice; ATTEND Hospitalist
DX: J44.1 Chronic obstructive pulmonary disease with (acute) exacerbation (principal); J18.9 Pneumonia, unspecified organism; E87.2 Acidosis; I48.91 Unspecified atrial fibrillation; I12.9 Hypertensive chronic kidney disease with stage 1 through stage 4 chronic kidney disease, or unspecified chronic kidney disease; G62.9 Polyneuropathy, unspecified; I16.0 Hypertensive urgency; I25.10 Atherosclerotic heart disease of native coronary artery without angina pectoris; N18.3 Chronic kidney disease, stage 3 (moderate); I71.4 Abdominal aortic aneurysm, without rupture; E87.70 Fluid overload, unspecified; I51.7 Cardiomegaly; F32.9 Major depressive disorder, single episode, unspecified; F03.90 Unspecified dementia, unspecified severity, without behavioral disturbance, psychotic disturbance, mood disturbance, and anxiety; E87.6 Hypokalemia; R33.9 Retention of urine, unspecified; I27.2 Other secondary pulmonary hypertension; Z79.01 Long term (current) use of anticoagulants; Z79.899 Other long term (current) drug therapy; Z85.828 Personal history of other malignant neoplasm of skin; Z88.2 Allergy status to sulfonamides; Z86.73 Personal history of transient ischemic attack (TIA), and cerebral infarction without residual deficits; Z95.5 Presence of coronary angioplasty implant and graft; Z90.710 Acquired absence of both cervix and uterus; Z87.891 Personal history of nicotine dependence; Z91.19 Patient's noncompliance with other medical treatment and regimen

== ENCOUNTER 2016-05-30 15:12 | Emergency (ER) | payer MEDICARE, MEDICAID ==
[~2016-05-30 15:12] MED LIST changes: +ALDA25TA2 PO; +AMLO5TAB2 PO; +ATOR1TAB19 PO; +BUDE0.254 INH; +COUM2TAB10 PO; +DEXA1TA PO; +ENSULIQ2 PO; +FLUO10CA8 PO; +FURO20TA2 PO; +GABA-279 PO; +INDA125TA PO; +IPRASOL4 INH; +LISI-542 PO; +LISI40TAB PO; +METO-207 PO; +PERF20NE2 INH; +POTA10CA PO; +SENN8.6T10 PO; +SLOWTAB2 PO; +WARF4TAB51 PO
[2016-05-30 15:48] LABS: BASO % 0.1 % (0.0-1.0); EOS # 0.2 K/mm3 (0.0-0.50); EOS % 1.2 % (0.0-3.0); LARGE UNSTAINED CELL # 0.1 K/mm3 (0.0-0.4); LARGE UNSTAINED CELL % 0.7 % (0.0-4.0); LYMPH # 0.8 K/mm3 (1.5-4.5); LYMPH % 5.6 % (24.0-44.0); MEAN CORPUSCULAR HEMOGLOBIN 33.4 pg (27.0-33.0); MEAN CORPUSCULAR HGB CONC 33.4 g/dl (32.0-36.5); MEAN CORPUSCULAR VOLUME 99.9 fl (80.0-96.0); MONO # 0.5 K/mm3 (0.0-0.8); MONO % 3.6 % (0.0-5.0); NEUTROPHILS # 11.8 K/mm3 (1.8-7.7); NEUTROPHILS % 88.8 % (36.0-66.0); PLATELET COUNT, AUTOMATED 140 k/mm3 (150-450); RED CELL DISTRIBUTION WIDTH 11.6 % (11.5-14.5); WHITE BLOOD COUNT 13.3 K/mm3 (4.0-10.0)
[2016-05-30 16:08] LABS: CALCIUM LEVEL 9.2 MG/DL (8.8-10.2); CREATININE FOR GFR 1.18 MG/DL (0.55-1.02); GLOMERULAR FILTRATION RATE 46.1 (>32); POTASSIUM SERUM 3.7 MEQ/L (3.5-5.1)
[2016-05-30] MEDS ORDERED: IPRATROPIUM 0.5MG/ALBUTEROL 2.5MG INH SOL UD 3ML (DUONEB)(J7620) As Ordered ONE (17:31)
--- NOTE | 2016-05-30 18:46 | EDDOCDS ---
Physician Documentation [facility] Name: Kelsey Sosa Age: 85 yrs Sex: Female : 1930 Arrival Date: 05/30/2016 Time: 15:12 Bed 14 Private MD: Disposition: 05/30/16 18:09 Discharged to Home/Self Care. Impression: Weakness. - Condition is Stable. - Medication Reconciliation, Local Pharmacy Hours form. - Follow up: Private Physician; When: Call to arrange an appointment; Reason: Continuance of care. - Problem is chronic. - Symptoms are unchanged. Historical: - Allergies: SULFA (SULFONAMIDES) (Vomit); - Home Meds: 1. lisinopril 5 mg oral tab 1 tab once daily 2. Aldactone 25 mg Oral tab 1 tab once daily 3. DuoNeb 0.5 mg-3 mg(2.5 mg base)/3 mL Inhl nebu 3 mL as needed 4. Lipitor 10 mg Oral tab 1 tab once daily 5. budesonide inhalation 2 times per day 6. fluoxetine 10 mg Oral cap 1 caps once daily 7. Neurontin 100 mg Oral cap twice a day 8. indapamide 1.25 mg Oral tab 1 tab once daily 9. slomag 128 mg daily 10. metoprolol succinate 50 mg Tb24 1 tab once daily 11. warfarin 1.5 Oral tab 1 tab daily except Mondays and Fridays give every 48 hours, 12. potassium chloride 10 mEq Oral cpER 1 cap once daily 13. sennacot 1 tab as needed 14. dexamethasone 1 mg Oral tab once daily 15. performist 210 mcg/2ml twice a day 16. furosemide 20 mg Oral tab 1 tab once daily - PMHx: Atrial Fib; CAD; COPD; CVA; Emphysema; Hypercholesterolemia; Hypertension; - PSHx: CATARACT SURGERY; Stents, Coronary; hysterectomy, Partial; blethroplasty; - Social history: Smoking status: Patient states was never smoker of tobacco. No barriers to communication noted, The patient speaks fluent Vietnamese, Speaks appropriately for age. - Family history: Not pertinent. - : The pt / caregiver states he / she is on anticoagulants: coumadin. Home medication list is obtained from the facility [facility]. - Exposure Risk Screening:: None identified. Vital Signs: 05/30 15:24 BP 144 / 64 (auto/); jmb 15:25 BP 144 / 64; Pulse 78; Resp 20; Pulse Ox 96% on R/A; Pain 0/10; jmb 15:25 Pulse 78 MON; Pulse Ox 93% ; jmb 15:39 BP 127 / 72 (auto/); jmb 15:40 Pulse 82 MON; Pulse Ox 93% ; jmb 15:47 Temp 98.9(R); jmb 15:54 BP 123 / 68 (auto/); jmb 15:55 Pulse 84 MON; Pulse Ox 95% ; jmb 16:09 BP 133 / 80 (auto/); jmb 16:10 Pulse 86 MON; Pulse Ox 95% ; jmb 16:39 BP 124 / 79 (auto/); jmb 16:40 Pulse 82 MON; Pulse Ox 97% ; jmb 16:54 BP 123 / 80 (auto/); jmb 16:55 Pulse 82 MON; Pulse Ox 97% ; jmb 17:09 BP 132 / 87 (auto/); jmb 17:10 Pulse 88 MON; Pulse Ox 96% ; jmb 17:24 BP 132 / 76 (auto/); jmb 17:25 Pulse 82 MON; Pulse Ox 97% ; jmb 17:39 BP 131 / 81 (auto/); jmb 17:40 Pulse 82 MON; Pulse Ox 100% ; jmb 17:54 BP 128 / 71 (auto/); jmb 17:55 Pulse 84 MON; Pulse Ox 98% ; jmb 18:09 BP 126 / 73 (auto/); jmb 18:09 Pulse 84 MON; Pulse Ox 95% ; jmb 18:20 BP 124 / 72; Pulse 85; Resp 20; Temp 96.0(T); Pulse Ox 96% on R/A; Pain 0/10; jmb MDM: 15:33 IV Saline Lock ordered. fg 15:33 Rectal Temp ordered. fg 15:35 CBC with Diff Ordered. EDMS 15:35 Basic Metabolic Profile Ordered. EDMS 15:35 Urinalysis Ordered. EDMS 15:35 Urine Culture Ordered. EDMS 16:57 Financial registration complete. gjb 16:59 [facility] Payment Agreement was scanned into [employer] and attached to record. gjb 17:15 Albuterol-Ipratropium 3 ml Inhalation once ordered. fg Administered Medications: 17:36 Drug: Albuterol-Ipratropium 3 ml [ipratropium-albuterol 0.5 mg-3 mg(2.5 mg base)/3 mL cs15 nebulization soln (3 mL)] Route: Inhalation; Signatures: Dispatcher [employer] Ant Brewer,BRYANNA RN Danielle Villarreal MD MD fg Beck, Gabriela gjb Shelton, Caleb RT [id number] The chart was reviewed and I authenticate all verbal orders and agree with the evaluation and treatment provided.Attachments: 16:59 [facility] Payment Agreement vika MTDD
--- NOTE | 2016-05-30 18:47 | EDDOCDS ---
Nurse's Notes [facility] Name: Kelsey Sosa Age: 85 yrs Sex: Female : 1930 Arrival Date: 05/30/2016 Time: 15:12 Bed 14 Private MD: Diagnosis: Weakness Presentation: 05/30 15:16 Presenting complaint: EMS states: Family reports that patient is having inability to jmb urinate when gotten up. Patients' only complaint is a toothache. Blood sugar 118, blood pressure 116/73. Patient does not care about anything per EMS but day of the week. Adult Sepsis Screening: The patient does not have new or worsening altered mentation. Patient's respiratory rate is less than 22. Systolic blood pressure is greater than 100. Patient has a qSOFA score of 0- Negative Sepsis Screen. Suicide/Homicide risk assessment- the patient denies having any suicidal and/or homicidal ideations and does not present with any other emotional, behavioral or mental health complaints. Status: Patient is not a branch services manager or dependent. Transition of care: patient was not received from another setting of care. 15:16 Acuity: BETSEY Level 3 [facility] 15:16 Method Of Arrival: Ambulance [facility] Triage Assessment: 15:16 General: Appears in no apparent distress, Behavior is uncooperative. Pain: Denies pain. [facility] Neurological: Level of Consciousness is awake, alert, Speech is normal, Facial symmetry appears normal, Facial symmetry: tongue is midline. Cardiovascular: Capillary refill < 3 seconds Heart tones present Pulses are all present. Rhythm is regular. Respiratory: Airway is patent Respiratory effort is even, unlabored, Respiratory pattern is regular, symmetrical, Breath sounds are diminished bilaterally. GI: Abdomen is non- distended Bowel sounds present X 4 quads. Abd is soft and non tender X 4 quads. Derm: Skin is pink, warm & dry. Musculoskeletal: Range of motion intact in all extremities. Historical: - Allergies: SULFA (SULFONAMIDES) (Vomit); - Home Meds: 1. lisinopril 5 mg oral tab 1 tab once daily 2. Aldactone 25 mg Oral tab 1 tab once daily 3. DuoNeb 0.5 mg-3 mg(2.5 mg base)/3 mL Inhl nebu 3 mL as needed 4. Lipitor 10 mg Oral tab 1 tab once daily 5. budesonide inhalation 2 times per day 6. fluoxetine 10 mg Oral cap 1 caps once daily 7. Neurontin 100 mg Oral cap twice a day 8. indapamide 1.25 mg Oral tab 1 tab once daily 9. slomag 128 mg daily 10. metoprolol succinate 50 mg Tb24 1 tab once daily 11. warfarin 1.5 Oral tab 1 tab daily except Mondays and Fridays give every 48 hours, 12. potassium chloride 10 mEq Oral cpER 1 cap once daily 13. sennacot 1 tab as needed 14. dexamethasone 1 mg Oral tab once daily 15. performist 210 mcg/2ml twice a day 16. furosemide 20 mg Oral tab 1 tab once daily - PMHx: Atrial Fib; CAD; COPD; CVA; Emphysema; Hypercholesterolemia; Hypertension; - PSHx: CATARACT SURGERY; Stents, Coronary; hysterectomy, Partial; blethroplasty; - Social history: Smoking status: Patient states was never smoker of tobacco. No barriers to communication noted, The patient speaks fluent Khmer, Speaks appropriately for age. - Family history: Not pertinent. - : The pt / caregiver states he / she is on anticoagulants: coumadin. Home medication list is obtained from the facility [facility]. - Exposure Risk Screening:: None identified. Screenin:51 Screening information is obtained from the patient. Fall risk: At risk due to age, gait jmb disturbance, immobility. Assistance ADL's: requires no assistance with activities of daily living. Abuse/DV Screen: The patient / caregiver reports he/she is: not in a situation that causes fear, pain or injury. Nutritional screening: No deficits noted. home support is adequate. 18:44 Advance Directives: Currently, there is no health care proxy. There is no active DNR jmb order. There is no living will. There is no Power of Deputy [employer]. Assessment: 15:51 General: see triage assessment. jmb 16:34 General: Appears in no apparent distress, comfortable, Behavior is appropriate for age, jmb cooperative, Patient laying on stretcher, appears comfortable. Patient voices no complaints at this time. . Neurological: Level of Consciousness is awake, alert, obeys commands, Oriented to place, Speech is normal, Facial symmetry appears normal, Facial symmetry: tongue is midline. Respiratory: Airway is patent Respiratory effort is even, unlabored, Respiratory pattern is regular, symmetrical. 17:07 General: Appears in no apparent distress, comfortable, Behavior is appropriate for age, jmb cooperative. Neurological: Level of Consciousness is awake, alert, obeys commands, Oriented to place. Respiratory: Airway is patent Respiratory effort is even, unlabored, Respiratory pattern is regular, symmetrical. 17:43 General: Appears in no apparent distress, comfortable, Behavior is appropriate for age, jmb cooperative, Patient laying on stretcher with daughter at bedside. NO voiced complaints at this time. Daughter concerned about seeing provider. Daughter stated that provider has not been in since patient arrived, daughter informed that Dr. Perez has been in room two times since patient arrived, daughter was not present at those times. Daughter comes and leaves patient's room frequently for periods of time since arrival. Patient voices wanting to go home, daughter states mother needs evaluation for frequent urination. . Neurological: Level of Consciousness is awake, alert, obeys commands, Oriented to place. Respiratory: Airway is patent Respiratory effort is even, unlabored, Respiratory pattern is regular, symmetrical. 18:44 General: Patient instructed on discharge instructions. Patient asked if there were any jmb questions regarding discharge, patients daughter stated no. IV discontinued per hospital policy. Daughter signed discharge instructions. Patient discharged in stable condition. . Vital Signs: 15:24 BP 144 / 64 (auto/); jmb 15:25 BP 144 / 64; Pulse 78; Resp 20; Pulse Ox 96% on R/A; Pain 0/10; jmb 15:25 Pulse 78 MON; Pulse Ox 93% ; jmb 15:39 BP 127 / 72 (auto/); jmb 15:40 Pulse 82 MON; Pulse Ox 93% ; jmb 15:47 Temp 98.9(R); jmb 15:54 BP 123 / 68 (auto/); jmb 15:55 Pulse 84 MON; Pulse Ox 95% ; jmb 16:09 BP 133 / 80 (auto/); jmb 16:10 Pulse 86 MON; Pulse Ox 95% ; jmb 16:39 BP 124 / 79 (auto/); jmb 16:40 Pulse 82 MON; Pulse Ox 97% ; jmb 16:54 BP 123 / 80 (auto/); jmb 16:55 Pulse 82 MON; Pulse Ox 97% ; jmb 17:09 BP 132 / 87 (auto/); jmb 17:10 Pulse 88 MON; Pulse Ox 96% ; jmb 17:24 BP 132 / 76 (auto/); jmb 17:25 Pulse 82 MON; Pulse Ox 97% ; jmb 17:39 BP 131 / 81 (auto/); jmb 17:40 Pulse 82 MON; Pulse Ox 100% ; jmb 17:54 BP 128 / 71 (auto/); jmb 17:55 Pulse 84 MON; Pulse Ox 98% ; jmb 18:09 BP 126 / 73 (auto/); jmb 18:09 Pulse 84 MON; Pulse Ox 95% ; jmb 18:20 BP 124 / 72; Pulse 85; Resp 20; Temp 96.0(T); Pulse Ox 96% on R/A; Pain 0/10; jmb Vitals: 15:16 Log In Time N/A - ambulance arrival. [facility] ED Course: 15:14 Patient visited by John Selby PCA. jrd 15:14 Patient moved to Waiting jrd 15:14 Patient moved to 14 jrd 15:15 Danielle Perez MD is Attending Physician. fg 15:15 Patient visited by Danielle Perez MD. fg 15:17 Triage Initiated jmb 15:20 Patient visited by Ant Doyle RN. jmb 15:47 Urine Culture Sent. jmb 15:47 Urinalysis Sent. jmb 15:51 The patient / caregiver is instructed regarding the plan of care and ED course. Cardiac jmb monitor on. Pulse ox on. NIBP on. 15:51 Inserted saline lock: 20 gauge in right antecubital area and blood collected. The b patient tolerated the procedure well. Labs drawn. (by ED staff). Sent per order to lab. Urine collected. Clean catch specimen. 16:00 Patient visited by Micheal Stein PCA. jlf 16:35 Patient visited by Ant Doyle RN. jmb 16:59 [facility] [place] was scanned into [employer] and attached to record. gjb 17:08 Patient visited by Ant Doyle RN. jmana 17:48 Patient visited by Ant Doyle,BRYANNA. jmb 18:44 Discontinued lock intact, bleeding controlled, pressure dressing applied, No jmb redness/swelling at site. No procedures done that require assistance. Administered Medications: 17:36 Drug: Albuterol-Ipratropium 3 ml [ipratropium-albuterol 0.5 mg-3 mg(2.5 mg base)/3 mL cs15 nebulization soln (3 mL)] Route: Inhalation; Output: 15:52 Urine: 300.00ml (Voided); Total: 300.00ml. arnold RT: 17:36 Initial Med Neb Given as ordered. Respiratory: Respiratory effort is Respiratory cs15 pattern is Breath sounds are clear bilaterally. Breath sounds are diminished bilaterally. Order Results: Lab Order: CBC with Diff; SPEC'M 05/30/16 15:35 Test: WHITE BLOOD COUNT; Value: 13.3; Range: 4.0-10.0; Abnormal: Above high normal; Units: K/mm3; Status: F Test: RED BLOOD COUNT; Value: 4.31; Range: 4.00-5.40; Units: M/mm3; Status: F Test: HEMOGLOBIN; Value: 14.4; Range: 12.0-16.0; Units: g/dl; Status: F Test: HEMATOCRIT; Value: 43.0; Range: 36.0-47.0; Units: %; Status: F Test: MEAN CORPUSCULAR VOLUME; Value: 99.9; Range: 80.0-96.0; Abnormal: Above high normal; Units: fl; Status: F Test: MEAN CORPUSCULAR HEMOGLOBIN; Value: 33.4; Range: 27.0-33.0; Abnormal: Above high normal; Units: pg; Status: F Test: MEAN CORPUSCULAR HGB CONC; Value: 33.4; Range: 32.0-36.5; Units: g/dl; Status: F Test: RED CELL DISTRIBUTION WIDTH; Value: 11.6; Range: 11.5-14.5; Units: %; Status: F Test: PLATELET COUNT, AUTOMATED; Value: 140; Range: 150-450; Abnormal: Below low normal; Units: k/mm3; Status: F Test: NEUTROPHILS %; Value: 88.8; Range: 36.0-66.0; Abnormal: Above high normal; Units: %; Status: F Test: LYMPH %; Value: 5.6; Range: 24.0-44.0; Abnormal: Below low normal; Units: %; Status: F Test: MONO %; Value: 3.6; Range: 0.0-5.0; Units: %; Status: F Test: EOS %; Value: 1.2; Range: 0.0-3.0; Units: %; Status: F Test: BASO %; Value: 0.1; Range: 0.0-1.0; Units: %; Status: F Test: LARGE UNSTAINED CELL %; Value: 0.7; Range: 0.0-4.0; Units: %; Status: F Test: NEUTROPHILS #; Value: 11.8; Range: 1.8-7.7; Abnormal: Above high normal; Units: K/mm3; Status: F Test: LYMPH #; Value: 0.8; Range: 1.5-4.5; Abnormal: Below low normal; Units: K/mm3; Status: F Test: MONO #; Value: 0.5; Range: 0.0-0.8; Units: K/mm3; Status: F Test: EOS #; Value: 0.2; Range: 0.0-0.50; Units: K/mm3; Status: F Test: BASO #; Value: 0.0; Range: 0.0-0.2; Units: K/mm3; Status: F Test: LARGE UNSTAINED CELL #; Value: 0.1; Range: 0.0-0.4; Units: K/mm3; Status: F Lab Order: Basic Metabolic Profile; [facility]' 05/30/16 15:35 Test: GLUCOSE, FASTING; Value: 114; Range: 83-110; Abnormal: Above high normal; Units: MG/DL; Status: F Test: BLOOD UREA NITROGEN; Value: 26; Range: 7-18; Abnormal: Above high normal; Units: MG/DL; Status: F Test: CREATININE FOR GFR; Value: 1.18; Range: 0.55-1.02; Abnormal: Above high normal; Units: MG/DL; Status: F Test: GLOMERULAR FILTRATION RATE; Value: 46.1; Range: >32; Status: F Test: SODIUM LEVEL; Value: 135; Range: 136-145; Abnormal: Below low normal; Units: MEQ/L; Status: F Test: POTASSIUM SERUM; Value: 3.7; Range: 3.5-5.1; Units: MEQ/L; Status: F Test: CHLORIDE LEVEL; Value: 95; Range: 98-107; Abnormal: Below low normal; Units: MEQ/L; Status: F Test: CARBON DIOXIDE LEVEL; Value: 30; Range: 21-32; Units: MEQ/L; Status: F Test: ANION GAP; Value: 10; Range: 8-16; Units: MEQ/L; Status: F Test: CALCIUM LEVEL; Value: 9.2; Range: 8.8-10.2; Units: MG/DL; Status: F Test Note: ; Units are mL/min/1.73 m2 Chronic Kidney Disease Staging per NKF: Stage I & II GFR >=60 Normal to Mildly Decreased Stage III GFR 30-59 Moderately Decreased Stage IV GFR 15-29 Severely Decreased Stage V GFR <15 Very Little GFR Left ESRD GFR <15 on NON DESTRUCTIVE TESTING TECHNICIAN Lab Order: Urinalysis; SPEC'M 05/30/16 15:35 Test: APPEARANCE, URINE; Value: CLEAR; Range: CLEAR; Status: F Test: COLOR, URINE; Value: YELLOW; Range: YELLOW; Status: F Test: PH,URINE; Value: 7.0; Range: 5.0-9.0; Units: UNITS; Status: F Test: SPECIFIC GRAVITY URINE AUTO; Value: 1.014; Range: 1.002-1.035; Status: F Test: PROTEIN, URINE AUTO; Value: NEGATIVE; Range: NEGATIVE; Units: mg/dL; Status: F Test: GLUCOSE, URINE (UA) AUTO; Value: NEGATIVE; Range: NEGATIVE; Units: mg/dL; Status: F Test: KETONE, URINE AUTO; Value: NEGATIVE; Range: NEGATIVE; Units: mg/dL; Status: F Test: UROBILINOGEN, URINE AUTO; Value: 0.2; Range: 0.0-2.0; Units: mg/dL; Status: F Test: BILIRUBIN, URINE AUTO; Value: NEGATIVE; Range: NEGATIVE; Status: F Test: NITRITE, URINE AUTO; Value: NEGATIVE; Range: NEGATIVE; Status: F Test: LEUKOCYTE ESTERASE, URINE AUTO; Value: NEGATIVE; Range: NEGATIVE; Status: F Test: BLOOD, URINE BLOOD; Value: NEGATIVE; Range: NEGATIVE; Status: F Test: WBC, URINE AUTO; Value: 3; Range: 0-3; Units: /HPF; Status: F Test: RBC, URINE AUTO; Value: 2; Range: 0-3; Units: /HPF; Status: F Test: BACTERIA, URINE AUTO; Value: 1+; Range: NEGATIVE; Abnormal: Above high normal; Status: F Test: SQUAMOUS EPITHELIAL CELL UR AU; Value: 0; Range: 0-6; Units: /HPF; Status: F Test: HYALINE CAST, URINE AUTO; Value: 0; Range: 0-1; Units: /LPF; Status: F Test: AMORPHOUS SEDIMENT; Value: SMALL; Range: NEGATIVE; Abnormal: Above high normal; Status: F Outcome: 18:09 Discharge ordered by Provider. fg 18:44 Discharge Assessment: Patient awake, alert and oriented x 3. No cognitive and/or jmb functional deficits noted. Patient verbalized understanding of disposition instructions. Patient awake and alert. obeys commands, Oriented to person, place and time. Patient verbalized understanding of disposition instructions. Patient has no functional deficits. patient administered narcotics - no. The following High Risk Discharge criteria are identified: None. Discharged to home via wheelchair, with family. Condition: stable. Discharge instructions given to family, Instructed on discharge instructions, follow up and referral plans. Demonstrated understanding of instructions, Pt was receptive of discharge instructions/ teaching. No special radiology studies were completed. Property :Personal belongings accompany Pt. 18:46 Patient left the ED. b Signatures: Ant Doyle,RN RN Micheal Grey, VP ORGANIZATIONAL DEVELOPMENT VP ORGANIZATIONAL DEVELOPMENT John Zaldivar, VP ORGANIZATIONAL DEVELOPMENT VP ORGANIZATIONAL DEVELOPMENT Danielle Herman MD MD fg Shelton, Caleb,RT RT cs15 Denise Gonzalez NOEMI
--- NOTE | 2016-06-01 19:47 | EDDOCDS ---
Physician Documentation [facility] Name: Kelsey Sosa Age: 85 yrs Sex: Female : 1930 Arrival Date: 05/30/2016 Time: 15:12 Bed 14 Private MD: Disposition: 05/30/16 18:09 Discharged to Home/Self Care. Impression: Weakness. - Condition is Stable. - Medication Reconciliation, Local Pharmacy Hours form. - Follow up: Private Physician; When: Call to arrange an appointment; Reason: Continuance of care. - Problem is chronic. - Symptoms are unchanged. Historical: - Allergies: SULFA (SULFONAMIDES) (Vomit); - Home Meds: 1. lisinopril 5 mg oral tab 1 tab once daily 2. Aldactone 25 mg Oral tab 1 tab once daily 3. DuoNeb 0.5 mg-3 mg(2.5 mg base)/3 mL Inhl nebu 3 mL as needed 4. Lipitor 10 mg Oral tab 1 tab once daily 5. budesonide inhalation 2 times per day 6. fluoxetine 10 mg Oral cap 1 caps once daily 7. Neurontin 100 mg Oral cap twice a day 8. indapamide 1.25 mg Oral tab 1 tab once daily 9. slomag 128 mg daily 10. metoprolol succinate 50 mg Tb24 1 tab once daily 11. warfarin 1.5 Oral tab 1 tab daily except Mondays and Fridays give every 48 hours, 12. potassium chloride 10 mEq Oral cpER 1 cap once daily 13. sennacot 1 tab as needed 14. dexamethasone 1 mg Oral tab once daily 15. performist 210 mcg/2ml twice a day 16. furosemide 20 mg Oral tab 1 tab once daily - PMHx: Atrial Fib; CAD; COPD; CVA; Emphysema; Hypercholesterolemia; Hypertension; - PSHx: CATARACT SURGERY; Stents, Coronary; hysterectomy, Partial; blethroplasty; - Social history: Smoking status: Patient states was never smoker of tobacco. No barriers to communication noted, The patient speaks fluent Paraguayan, Speaks appropriately for age. - Family history: Not pertinent. - : The pt / caregiver states he / she is on anticoagulants: coumadin. Home medication list is obtained from the facility [facility]. - Exposure Risk Screening:: None identified. Vital Signs: 05/30 15:24 BP 144 / 64 (auto/); jmb 15:25 BP 144 / 64; Pulse 78; Resp 20; Pulse Ox 96% on R/A; Pain 0/10; jmb 15:25 Pulse 78 MON; Pulse Ox 93% ; jmb 15:39 BP 127 / 72 (auto/); jmb 15:40 Pulse 82 MON; Pulse Ox 93% ; jmb 15:47 Temp 98.9(R); jmb 15:54 BP 123 / 68 (auto/); jmb 15:55 Pulse 84 MON; Pulse Ox 95% ; jmb 16:09 BP 133 / 80 (auto/); jmb 16:10 Pulse 86 MON; Pulse Ox 95% ; jmb 16:39 BP 124 / 79 (auto/); jmb 16:40 Pulse 82 MON; Pulse Ox 97% ; jmb 16:54 BP 123 / 80 (auto/); jmb 16:55 Pulse 82 MON; Pulse Ox 97% ; jmb 17:09 BP 132 / 87 (auto/); jmb 17:10 Pulse 88 MON; Pulse Ox 96% ; jmb 17:24 BP 132 / 76 (auto/); jmb 17:25 Pulse 82 MON; Pulse Ox 97% ; jmb 17:39 BP 131 / 81 (auto/); jmb 17:40 Pulse 82 MON; Pulse Ox 100% ; jmb 17:54 BP 128 / 71 (auto/); jmb 17:55 Pulse 84 MON; Pulse Ox 98% ; jmb 18:09 BP 126 / 73 (auto/); jmb 18:09 Pulse 84 MON; Pulse Ox 95% ; jmb 18:20 BP 124 / 72; Pulse 85; Resp 20; Temp 96.0(T); Pulse Ox 96% on R/A; Pain 0/10; jmb MDM: 15:33 IV Saline Lock ordered. fg 15:33 Rectal Temp ordered. fg 15:35 CBC with Diff Ordered. EDMS 15:35 Basic Metabolic Profile Ordered. EDMS 15:35 Urinalysis Ordered. EDMS 15:35 Urine Culture Ordered. EDMS 16:57 Financial registration complete. gjb 16:59 [facility] Payment Agreement was scanned into [employer] and attached to record. gjb 17:15 Albuterol-Ipratropium 3 ml Inhalation once ordered. fg 18:53 PCR was scanned into [employer] and attached to record. jrd 05/31 07:26 T-Sheet-- Draft Copy was scanned into [employer] and attached to record. gb 06/01 17:18 Lab / Xray Callback was scanned into [employer] and attached to record. ar3 Administered Medications: 05/30 17:36 Drug: Albuterol-Ipratropium 3 ml [ipratropium-albuterol 0.5 mg-3 mg(2.5 mg base)/3 mL cs15 nebulization soln (3 mL)] Route: Inhalation; Signatures: Dispatcher [employer] EDMS Jenni Moore, Reg Reg gb Akua Arthur, PAPER SLITTER PAPER SLITTER ar3 Ant Doyle,BRYANNA RN John Grewal, PAPER SLITTER PAPER SLITTER jrd Danielle Perez MD MD fg Beck, Gabriela gjb Shelton, Caleb RT cs15 The chart was reviewed and I authenticate all verbal orders and agree with the evaluation and treatment provided.Attachments: 16:59 [facility] [place] Agreement gjana 05/31 07:26 T-Sheet-- Draft Copy gb Chart Complete MTDD
--- NOTE | 2016-06-01 19:47 | EDDOCDS ---
Nurse's Notes [facility] Name: Kelsey Sosa Age: 85 yrs Sex: Female : 1930 Arrival Date: 05/30/2016 Time: 15:12 Bed 14 Private MD: Diagnosis: Weakness Presentation: 05/30 15:16 Presenting complaint: EMS states: Family reports that patient is having inability to jmb urinate when gotten up. Patients' only complaint is a toothache. Blood sugar 118, blood pressure 116/73. Patient does not care about anything per EMS but day of the week. Adult Sepsis Screening: The patient does not have new or worsening altered mentation. Patient's respiratory rate is less than 22. Systolic blood pressure is greater than 100. Patient has a qSOFA score of 0- Negative Sepsis Screen. Suicide/Homicide risk assessment- the patient denies having any suicidal and/or homicidal ideations and does not present with any other emotional, behavioral or mental health complaints. Status: Patient is not a technical services manager or dependent. Transition of care: patient was not received from another setting of care. 15:16 Acuity: BETSEY Level 3 [facility] 15:16 Method Of Arrival: Ambulance [facility] Triage Assessment: 15:16 General: Appears in no apparent distress, Behavior is uncooperative. Pain: Denies pain. [facility] Neurological: Level of Consciousness is awake, alert, Speech is normal, Facial symmetry appears normal, Facial symmetry: tongue is midline. Cardiovascular: Capillary refill < 3 seconds Heart tones present Pulses are all present. Rhythm is regular. Respiratory: Airway is patent Respiratory effort is even, unlabored, Respiratory pattern is regular, symmetrical, Breath sounds are diminished bilaterally. GI: Abdomen is non- distended Bowel sounds present X 4 quads. Abd is soft and non tender X 4 quads. Derm: Skin is pink, warm & dry. Musculoskeletal: Range of motion intact in all extremities. Historical: - Allergies: SULFA (SULFONAMIDES) (Vomit); - Home Meds: 1. lisinopril 5 mg oral tab 1 tab once daily 2. Aldactone 25 mg Oral tab 1 tab once daily 3. DuoNeb 0.5 mg-3 mg(2.5 mg base)/3 mL Inhl nebu 3 mL as needed 4. Lipitor 10 mg Oral tab 1 tab once daily 5. budesonide inhalation 2 times per day 6. fluoxetine 10 mg Oral cap 1 caps once daily 7. Neurontin 100 mg Oral cap twice a day 8. indapamide 1.25 mg Oral tab 1 tab once daily 9. slomag 128 mg daily 10. metoprolol succinate 50 mg Tb24 1 tab once daily 11. warfarin 1.5 Oral tab 1 tab daily except Mondays and Fridays give every 48 hours, 12. potassium chloride 10 mEq Oral cpER 1 cap once daily 13. sennacot 1 tab as needed 14. dexamethasone 1 mg Oral tab once daily 15. performist 210 mcg/2ml twice a day 16. furosemide 20 mg Oral tab 1 tab once daily - PMHx: Atrial Fib; CAD; COPD; CVA; Emphysema; Hypercholesterolemia; Hypertension; - PSHx: CATARACT SURGERY; Stents, Coronary; hysterectomy, Partial; blethroplasty; - Social history: Smoking status: Patient states was never smoker of tobacco. No barriers to communication noted, The patient speaks fluent Urdu, Speaks appropriately for age. - Family history: Not pertinent. - : The pt / caregiver states he / she is on anticoagulants: coumadin. Home medication list is obtained from the facility [facility]. - Exposure Risk Screening:: None identified. Screenin:51 Screening information is obtained from the patient. Fall risk: At risk due to age, gait jmb disturbance, immobility. Assistance ADL's: requires no assistance with activities of daily living. Abuse/DV Screen: The patient / caregiver reports he/she is: not in a situation that causes fear, pain or injury. Nutritional screening: No deficits noted. home support is adequate. 18:44 Advance Directives: Currently, there is no health care proxy. There is no active DNR jmb order. There is no living will. There is no Power of Lead Electrical Controls Engineer. Assessment: 15:51 General: see triage assessment. jmb 16:34 General: Appears in no apparent distress, comfortable, Behavior is appropriate for age, jmb cooperative, Patient laying on stretcher, appears comfortable. Patient voices no complaints at this time. . Neurological: Level of Consciousness is awake, alert, obeys commands, Oriented to place, Speech is normal, Facial symmetry appears normal, Facial symmetry: tongue is midline. Respiratory: Airway is patent Respiratory effort is even, unlabored, Respiratory pattern is regular, symmetrical. 17:07 General: Appears in no apparent distress, comfortable, Behavior is appropriate for age, jmb cooperative. Neurological: Level of Consciousness is awake, alert, obeys commands, Oriented to place. Respiratory: Airway is patent Respiratory effort is even, unlabored, Respiratory pattern is regular, symmetrical. 17:43 General: Appears in no apparent distress, comfortable, Behavior is appropriate for age, jmb cooperative, Patient laying on stretcher with daughter at bedside. NO voiced complaints at this time. Daughter concerned about seeing provider. Daughter stated that provider has not been in since patient arrived, daughter informed that Dr. Perez has been in room two times since patient arrived, daughter was not present at those times. Daughter comes and leaves patient's room frequently for periods of time since arrival. Patient voices wanting to go home, daughter states mother needs evaluation for frequent urination. . Neurological: Level of Consciousness is awake, alert, obeys commands, Oriented to place. Respiratory: Airway is patent Respiratory effort is even, unlabored, Respiratory pattern is regular, symmetrical. 18:44 General: Patient instructed on discharge instructions. Patient asked if there were any jmb questions regarding discharge, patients daughter stated no. IV discontinued per hospital policy. Daughter signed discharge instructions. Patient discharged in stable condition. . Social Work Consult: 18:51 Social Work Note: Provided pt and her daughter with information on [facility] services. Also advised them to speak with pt's PH nurse, who is due to come tomorrow, regarding other services that are offered by that agency. No other concerns noted at this time. Family receptive to the information provided. Vital Signs: 15:24 BP 144 / 64 (auto/); jmb 15:25 BP 144 / 64; Pulse 78; Resp 20; Pulse Ox 96% on R/A; Pain 0/10; jmb 15:25 Pulse 78 MON; Pulse Ox 93% ; jmb 15:39 BP 127 / 72 (auto/); jmb 15:40 Pulse 82 MON; Pulse Ox 93% ; jmb 15:47 Temp 98.9(R); jmb 15:54 BP 123 / 68 (auto/); jmb 15:55 Pulse 84 MON; Pulse Ox 95% ; jmb 16:09 BP 133 / 80 (auto/); jmb 16:10 Pulse 86 MON; Pulse Ox 95% ; jmb 16:39 BP 124 / 79 (auto/); jmb 16:40 Pulse 82 MON; Pulse Ox 97% ; jmb 16:54 BP 123 / 80 (auto/); jmb 16:55 Pulse 82 MON; Pulse Ox 97% ; jmb 17:09 BP 132 / 87 (auto/); jmb 17:10 Pulse 88 MON; Pulse Ox 96% ; jmb 17:24 BP 132 / 76 (auto/); jmb 17:25 Pulse 82 MON; Pulse Ox 97% ; jmb 17:39 BP 131 / 81 (auto/); jmb 17:40 Pulse 82 MON; Pulse Ox 100% ; jmb 17:54 BP 128 / 71 (auto/); jmb 17:55 Pulse 84 MON; Pulse Ox 98% ; jmb 18:09 BP 126 / 73 (auto/); jmb 18:09 Pulse 84 MON; Pulse Ox 95% ; jmb 18:20 BP 124 / 72; Pulse 85; Resp 20; Temp 96.0(T); Pulse Ox 96% on R/A; Pain 0/10; [facility] Vitals: 15:16 Log In Time N/A - ambulance arrival. [facility] ED Course: 15:14 Patient visited by John Selby PCA. jrd 15:14 Patient moved to Waiting jrd 15:14 Patient moved to 14 [facility] 15:15 Danielle Perez MD is Attending Physician. fg 15:15 Patient visited by Danielle Perez MD. fg 15:17 Triage Initiated [facility] 15:20 Patient visited by Ant Doyle RN. jmb 15:47 Urine Culture Sent. jmb 15:47 Urinalysis Sent. jmb 15:51 The patient / caregiver is instructed regarding the plan of care and ED course. Cardiac b monitor on. Pulse ox on. NIBP on. 15:51 Inserted saline lock: 20 gauge in right antecubital area and blood collected. The [facility] patient tolerated the procedure well. Labs drawn. (by ED staff). Sent per order to lab. Urine collected. Clean catch specimen. 16:00 Patient visited by Micheal Stein PCA. jlf 16:35 Patient visited by Ant Doyle RN. jmb 16:59 [facility] [facility] [place] was scanned into [employer] and attached to record. gjb 17:08 Patient visited by Ant Doyle RN. jmb 17:48 Patient visited by Ant Doyle RN. jmb 18:44 Discontinued lock intact, bleeding controlled, pressure dressing applied, No jmb redness/swelling at site. No procedures done that require assistance. 18:53 PCR was scanned into [employer] and attached to record. jrd 05/31 07:26 T-Sheet-- Draft Copy was scanned into [employer] and attached to record. gb 06/01 17:18 Lab / Xray Callback was scanned into [employer] and attached to record. ar3 Administered Medications: 05/30 17:36 Drug: Albuterol-Ipratropium 3 ml [ipratropium-albuterol 0.5 mg-3 mg(2.5 mg base)/3 mL cs15 nebulization soln (3 mL)] Route: Inhalation; Output: 15:52 Urine: 300.00ml (Voided); Total: 300.00ml. jmb RT: 17:36 Initial Med Neb Given as ordered. Respiratory: Respiratory effort is Respiratory cs15 pattern is Breath sounds are clear bilaterally. Breath sounds are diminished bilaterally. Order Results: Lab Order: CBC with Diff; SPEC'M 05/30/16 15:35 Test: WHITE BLOOD COUNT; Value: 13.3; Range: 4.0-10.0; Abnormal: Above high normal; Units: K/mm3; Status: F Test: RED BLOOD COUNT; Value: 4.31; Range: 4.00-5.40; Units: M/mm3; Status: F Test: HEMOGLOBIN; Value: 14.4; Range: 12.0-16.0; Units: g/dl; Status: F Test: HEMATOCRIT; Value: 43.0; Range: 36.0-47.0; Units: %; Status: F Test: MEAN CORPUSCULAR VOLUME; Value: 99.9; Range: 80.0-96.0; Abnormal: Above high normal; Units: fl; Status: F Test: MEAN CORPUSCULAR HEMOGLOBIN; Value: 33.4; Range: 27.0-33.0; Abnormal: Above high normal; Units: pg; Status: F Test: MEAN CORPUSCULAR HGB CONC; Value: 33.4; Range: 32.0-36.5; Units: g/dl; Status: F Test: RED CELL DISTRIBUTION WIDTH; Value: 11.6; Range: 11.5-14.5; Units: %; Status: F Test: PLATELET COUNT, AUTOMATED; Value: 140; Range: 150-450; Abnormal: Below low normal; Units: k/mm3; Status: F Test: NEUTROPHILS %; Value: 88.8; Range: 36.0-66.0; Abnormal: Above high normal; Units: %; Status: F Test: LYMPH %; Value: 5.6; Range: 24.0-44.0; Abnormal: Below low normal; Units: %; Status: F Test: MONO %; Value: 3.6; Range: 0.0-5.0; Units: %; Status: F Test: EOS %; Value: 1.2; Range: 0.0-3.0; Units: %; Status: F Test: BASO %; Value: 0.1; Range: 0.0-1.0; Units: %; Status: F Test: LARGE UNSTAINED CELL %; Value: 0.7; Range: 0.0-4.0; Units: %; Status: F Test: NEUTROPHILS #; Value: 11.8; Range: 1.8-7.7; Abnormal: Above high normal; Units: K/mm3; Status: F Test: LYMPH #; Value: 0.8; Range: 1.5-4.5; Abnormal: Below low normal; Units: K/mm3; Status: F Test: MONO #; Value: 0.5; Range: 0.0-0.8; Units: K/mm3; Status: F Test: EOS #; Value: 0.2; Range: 0.0-0.50; Units: K/mm3; Status: F Test: BASO #; Value: 0.0; Range: 0.0-0.2; Units: K/mm3; Status: F Test: LARGE UNSTAINED CELL #; Value: 0.1; Range: 0.0-0.4; Units: K/mm3; Status: F Lab Order: Basic Metabolic Profile; SPEC'M 05/30/16 15:35 Test: GLUCOSE, FASTING; Value: 114; Range: 83-110; Abnormal: Above high normal; Units: MG/DL; Status: F Test: BLOOD UREA NITROGEN; Value: 26; Range: 7-18; Abnormal: Above high normal; Units: MG/DL; Status: F Test: CREATININE FOR GFR; Value: 1.18; Range: 0.55-1.02; Abnormal: Above high normal; Units: MG/DL; Status: F Test: GLOMERULAR FILTRATION RATE; Value: 46.1; Range: >32; Status: F Test: SODIUM LEVEL; Value: 135; Range: 136-145; Abnormal: Below low normal; Units: MEQ/L; Status: F Test: POTASSIUM SERUM; Value: 3.7; Range: 3.5-5.1; Units: MEQ/L; Status: F Test: CHLORIDE LEVEL; Value: 95; Range: 98-107; Abnormal: Below low normal; Units: MEQ/L; Status: F Test: CARBON DIOXIDE LEVEL; Value: 30; Range: 21-32; Units: MEQ/L; Status: F Test: ANION GAP; Value: 10; Range: 8-16; Units: MEQ/L; Status: F Test: CALCIUM LEVEL; Value: 9.2; Range: 8.8-10.2; Units: MG/DL; Status: F Test Note: ; Units are mL/min/1.73 m2 Chronic Kidney Disease Staging per NKF: Stage I & II GFR >=60 Normal to Mildly Decreased Stage III GFR 30-59 Moderately Decreased Stage IV GFR 15-29 Severely Decreased Stage V GFR <15 Very Little GFR Left ESRD GFR <15 on STOREHOUSE CLERK Lab Order: Urinalysis; SPEC'M 05/30/16 15:35 Test: APPEARANCE, URINE; Value: CLEAR; Range: CLEAR; Status: F Test: COLOR, URINE; Value: YELLOW; Range: YELLOW; Status: F Test: PH,URINE; Value: 7.0; Range: 5.0-9.0; Units: UNITS; Status: F Test: SPECIFIC GRAVITY URINE AUTO; Value: 1.014; Range: 1.002-1.035; Status: F Test: PROTEIN, URINE AUTO; Value: NEGATIVE; Range: NEGATIVE; Units: mg/dL; Status: F Test: GLUCOSE, URINE (UA) AUTO; Value: NEGATIVE; Range: NEGATIVE; Units: mg/dL; Status: F Test: KETONE, URINE AUTO; Value: NEGATIVE; Range: NEGATIVE; Units: mg/dL; Status: F Test: UROBILINOGEN, URINE AUTO; Value: 0.2; Range: 0.0-2.0; Units: mg/dL; Status: F Test: BILIRUBIN, URINE AUTO; Value: NEGATIVE; Range: NEGATIVE; Status: F Test: NITRITE, URINE AUTO; Value: NEGATIVE; Range: NEGATIVE; Status: F Test: LEUKOCYTE ESTERASE, URINE AUTO; Value: NEGATIVE; Range: NEGATIVE; Status: F Test: BLOOD, URINE BLOOD; Value: NEGATIVE; Range: NEGATIVE; Status: F Test: WBC, URINE AUTO; Value: 3; Range: 0-3; Units: /HPF; Status: F Test: RBC, URINE AUTO; Value: 2; Range: 0-3; Units: /HPF; Status: F Test: BACTERIA, URINE AUTO; Value: 1+; Range: NEGATIVE; Abnormal: Above high normal; Status: F Test: SQUAMOUS EPITHELIAL CELL UR AU; Value: 0; Range: 0-6; Units: /HPF; Status: F Test: HYALINE CAST, URINE AUTO; Value: 0; Range: 0-1; Units: /LPF; Status: F Test: AMORPHOUS SEDIMENT; Value: SMALL; Range: NEGATIVE; Abnormal: Above high normal; Status: F Lab Order: Urine Culture; SPEC'M 05/30/16 15:35 Test: URINE CULTURE; Value: ORGANISM 1: STAPHYLOCOCCUS SIMULANS; Status: F Test: URINE CULTURE; Value: STAPHYLOCOCCUS SIMULANS; Status: F Test: URINE CULTURE; Value: COLONY COUNT CFU/ml 20,000; Status: F Test: URINE CULTURE; Value: GRAM POS SENSI - VITEK 67; Status: F Test: URINE CULTURE; Value: Method: VIT2; Status: F Test: URINE CULTURE; Value: TETRACYCLINE <=1 S; Status: F Test: URINE CULTURE; Value: PENICILLIN G >=0.5 R; Status: F Test: URINE CULTURE; Value: TRIMETHOPRIM/SULFAMETHOXAZOLE <=10 S; Status: F Test: URINE CULTURE; Value: ERYTHROMYCIN >=8 R; Status: F Test: URINE CULTURE; Value: GENTAMICIN <=0.5 S; Status: F Test: URINE CULTURE; Value: CLINDAMYCIN <=0.25 R; Status: F Test: URINE CULTURE; Value: NITROFURANTOIN <=16 S; Status: F Test: URINE CULTURE; Value: OXACILLIN >=4 R; Status: F Test: URINE CULTURE; Value: VANCOMYCIN <=0.5 S; Status: F Test: URINE CULTURE; Value: LINEZOLID (ZYVOX) 2 S; Status: F Outcome: 18:09 Discharge ordered by Provider. fg 18:44 Discharge Assessment: Patient awake, alert and oriented x 3. No cognitive and/or jmb functional deficits noted. Patient verbalized understanding of disposition instructions. Patient awake and alert. obeys commands, Oriented to person, place and time. Patient verbalized understanding of disposition instructions. Patient has no functional deficits. patient administered narcotics - no. The following High Risk Discharge criteria are identified: None. Discharged to home via wheelchair, with family. Condition: stable. Discharge instructions given to family, Instructed on discharge instructions, follow up and referral plans. Demonstrated understanding of instructions, Pt was receptive of discharge instructions/ teaching. No special radiology studies were completed. Property :Personal belongings accompany Pt. 18:46 Patient left the ED. [facility] 06/01 17:09 Urine culture reviewed by Dr Burt, no change in treatment.:. [facility] Signatures: Vilma Michel, RN RN Tana Orellana, PSA PSA ca Oscar, Jenni, Reg Reg gb Akua Arthur, BURLAP MAN BURLAP MAN ar3 Ant Doyle,RN RN Micheal Grey, BURLAP MAN BURLAP MAN John Zaldivar, BURLAP MAN BURLAP MAN Danielle Herman MD MD fg Shelton, Caleb,RT RT cs15 Denise Gonzalez Chart Complete MTDD
--- NOTE | 2016-06-01 19:47 | EDDOCDS ---
Physician Documentation [facility] Name: Kelsey Sosa Age: 85 yrs Sex: Female : 1930 Arrival Date: 05/30/2016 Time: 15:12 Bed 14 Private MD: Disposition: 05/30/16 18:09 Discharged to Home/Self Care. Impression: Weakness. - Condition is Stable. - Medication Reconciliation, Local Pharmacy Hours form. - Follow up: Private Physician; When: Call to arrange an appointment; Reason: Continuance of care. - Problem is chronic. - Symptoms are unchanged. Historical: - Allergies: SULFA (SULFONAMIDES) (Vomit); - Home Meds: 1. lisinopril 5 mg oral tab 1 tab once daily 2. Aldactone 25 mg Oral tab 1 tab once daily 3. DuoNeb 0.5 mg-3 mg(2.5 mg base)/3 mL Inhl nebu 3 mL as needed 4. Lipitor 10 mg Oral tab 1 tab once daily 5. budesonide inhalation 2 times per day 6. fluoxetine 10 mg Oral cap 1 caps once daily 7. Neurontin 100 mg Oral cap twice a day 8. indapamide 1.25 mg Oral tab 1 tab once daily 9. slomag 128 mg daily 10. metoprolol succinate 50 mg Tb24 1 tab once daily 11. warfarin 1.5 Oral tab 1 tab daily except Mondays and Fridays give every 48 hours, 12. potassium chloride 10 mEq Oral cpER 1 cap once daily 13. sennacot 1 tab as needed 14. dexamethasone 1 mg Oral tab once daily 15. performist 210 mcg/2ml twice a day 16. furosemide 20 mg Oral tab 1 tab once daily - PMHx: Atrial Fib; CAD; COPD; CVA; Emphysema; Hypercholesterolemia; Hypertension; - PSHx: CATARACT SURGERY; Stents, Coronary; hysterectomy, Partial; blethroplasty; - Social history: Smoking status: Patient states was never smoker of tobacco. No barriers to communication noted, The patient speaks fluent Gibraltarian, Speaks appropriately for age. - Family history: Not pertinent. - : The pt / caregiver states he / she is on anticoagulants: coumadin. Home medication list is obtained from the facility [facility]. - Exposure Risk Screening:: None identified. Vital Signs: 05/30 15:24 BP 144 / 64 (auto/); jmb 15:25 BP 144 / 64; Pulse 78; Resp 20; Pulse Ox 96% on R/A; Pain 0/10; jmb 15:25 Pulse 78 MON; Pulse Ox 93% ; jmb 15:39 BP 127 / 72 (auto/); jmb 15:40 Pulse 82 MON; Pulse Ox 93% ; jmb 15:47 Temp 98.9(R); jmb 15:54 BP 123 / 68 (auto/); jmb 15:55 Pulse 84 MON; Pulse Ox 95% ; jmb 16:09 BP 133 / 80 (auto/); jmb 16:10 Pulse 86 MON; Pulse Ox 95% ; jmb 16:39 BP 124 / 79 (auto/); jmb 16:40 Pulse 82 MON; Pulse Ox 97% ; jmb 16:54 BP 123 / 80 (auto/); jmb 16:55 Pulse 82 MON; Pulse Ox 97% ; jmb 17:09 BP 132 / 87 (auto/); jmb 17:10 Pulse 88 MON; Pulse Ox 96% ; jmb 17:24 BP 132 / 76 (auto/); jmb 17:25 Pulse 82 MON; Pulse Ox 97% ; jmb 17:39 BP 131 / 81 (auto/); jmb 17:40 Pulse 82 MON; Pulse Ox 100% ; jmb 17:54 BP 128 / 71 (auto/); jmb 17:55 Pulse 84 MON; Pulse Ox 98% ; jmb 18:09 BP 126 / 73 (auto/); jmb 18:09 Pulse 84 MON; Pulse Ox 95% ; jmb 18:20 BP 124 / 72; Pulse 85; Resp 20; Temp 96.0(T); Pulse Ox 96% on R/A; Pain 0/10; jmb MDM: 15:33 IV Saline Lock ordered. fg 15:33 Rectal Temp ordered. fg 15:35 CBC with Diff Ordered. EDMS 15:35 Basic Metabolic Profile Ordered. EDMS 15:35 Urinalysis Ordered. EDMS 15:35 Urine Culture Ordered. EDMS 16:57 Financial registration complete. gjb 16:59 [facility] Payment Agreement was scanned into [employer] and attached to record. gjb 17:15 Albuterol-Ipratropium 3 ml Inhalation once ordered. fg 18:53 PCR was scanned into [employer] and attached to record. jrd 05/31 07:26 T-Sheet-- Draft Copy was scanned into [employer] and attached to record. gb 06/01 17:18 Lab / Xray Callback was scanned into [employer] and attached to record. ar3 Administered Medications: 05/30 17:36 Drug: Albuterol-Ipratropium 3 ml [ipratropium-albuterol 0.5 mg-3 mg(2.5 mg base)/3 mL cs15 nebulization soln (3 mL)] Route: Inhalation; Signatures: Dispatcher [employer] EDMS Jenni Moore, Reg Reg gb Akua Arthur, BOTTOM SPRAYER BOTTOM SPRAYER ar3 Ant Doyle,BRYANNA RN John Grewal, BOTTOM SPRAYER BOTTOM SPRAYER jrd Danielle Perez MD MD fg Beck, Gabriela gjb Shelton, Caleb RT cs15 The chart was reviewed and I authenticate all verbal orders and agree with the evaluation and treatment provided.Attachments: 16:59 [facility] [place] Payment Agreement gjana 05/31 07:26 T-Sheet-- Draft Copy gb Chart Complete MTDD
== END 2016-05-30 18:46 | disposition home or self-care (01) ==
LOC: M ED 15:12
DX: R53.1 Weakness (principal); R35.0 Frequency of micturition; I48.91 Unspecified atrial fibrillation; I25.10 Atherosclerotic heart disease of native coronary artery without angina pectoris; J44.9 Chronic obstructive pulmonary disease, unspecified; E78.00 Pure hypercholesterolemia, unspecified; I10 Essential (primary) hypertension; Z95.5 Presence of coronary angioplasty implant and graft; Z90.79 Acquired absence of other genital organ(s); Z79.01 Long term (current) use of anticoagulants; Z79.899 Other long term (current) drug therapy; Z88.2 Allergy status to sulfonamides

== ENCOUNTER → 2016-06-21 | Outpatient (REF) | payer MEDICARE, MEDICAID ==
[2016-06-21 12:43] LABS: INR 1.94
== END ==
LOC: M LAB REF 11:59
PROVIDERS: ATTEND Internal Medicine
DX: J44.9 Chronic obstructive pulmonary disease, unspecified (principal); Z79.01 Long term (current) use of anticoagulants